=== PATIENT | female | born 1985 | race Caucasian/White ===

== ENCOUNTER 2021-11-06 09:55 | Outpatient (REF) | payer OTHER, MEDICAID, SELFPAY ==
[2021-11-06 10:28] LABS: MANUAL DIFF FLAG NO
[2021-11-06 11:56] LABS: Basophils Percent Auto 0.4 % (0-2); Eosinophils Absolute Auto 0.1 X10*3/uL (0.0-0.4); Eosinophils Percent Auto 1.1 % (0-4); Hematocrit 41.9 % (37.0-47.0); Hemoglobin 13.9 g/dl (12.0-16.0); Imm Gran Abs Auto 0.02 X10*3/uL (0.00-0.03); Imm Gran Pct Auto 0.3 % (0.0-0.4); Lymphocytes Absolute Auto 2.6 X10*3/uL (1.2-4.9); Mean Corpuscular HGB Conc 33.2 g/dl (31.0-35.0); Mean Corpuscular Hemoglobin 31.2 pg (27.0-33.0); Mean Corpuscular Volume 94.2 fL (80.0-98.0); Mean Platelet Volume 9.5 fL (9.4-12.3); Monocytes Absolute Auto 0.5 X10*3/uL (0.1-1.2); Neutrophils Absolute Auto 4.2 x10*3/uL (2.0-8.3); Neutrophils Percent Auto 56.2 % (45-73); Platelet Count 316 X10*3/uL (160-400); Red Blood Count 4.45 X10*6/uL (4.20-5.50); Red Cell Distribution Width 12.6 % (11.0-16.0); White Blood Count 7.4 X10*3/uL (4.8-10.8)
[2021-11-06 14:00] LABS: Alanine Aminotransferase 12 U/L (0-31); Albumin Level 4.4 g/dL (3.5-5.0); Alkaline Phosphatase 58 U/L (39-117); Anion Gap 14 (12-20); Aspartate Amino Transferase 16 U/L (5-31); Bilirubin Total 0.3 mg/dL (0.0-1.0); Blood Urea Nitrogen 12 mg/dL (9-16); Calcium 9.4 mg/dL (8.4-10.2); Carbon Dioxide 23 mmol/L (22-29); Chloride 104 mmol/L (96-108); Estimated Glomerular Filt Rate > 60; Glucose Random 81 mg/dL (60-115); Potassium 4.2 mmol/L (3.3-5.1); Sodium 137 mmol/L (135-145); Total Protein 7.5 g/dL (6.5-8.0)
[2021-11-08 13:56] LABS: Anti Nuclear Antibody Screen NEGATIVE (NEGATIVE)
[2021-11-09 06:56] LABS: Anti DNA DS Antibody <1 IU/mL; Antibody to SS-A Antigen 1.1 POS AI (<1.0 NEG); Antibody to SS-B Antigen <1.0 NEG AI (<1.0 NEG); JO 1 Antibody <1.0 NEG AI (<1.0 NEG); SM/Ribonucleoprotein Ab <1.0 NEG AI (<1.0 NEG); Scleroderma 70 Antibody <1.0 NEG AI (<1.0 NEG); Smith Protein <1.0 NEG AI (<1.0 NEG)
== END 2021-11-06 09:56 | disposition home or self-care (01) ==
LOC: HO.LAB 09:55
PROVIDERS: PCP Internal Medicine; Visit Provider Physician Assistant
DX: L93.0 Discoid lupus erythematosus (principal)
CPT/HCPCS: 36415; 80053; 85025; 86038; 86039; 86225; 86235

== ENCOUNTER 2021-11-14 08:12 | Outpatient (REF) | payer OTHER, SELFPAY ==
--- NOTE | 2021-11-14 08:25 | EMG_ITS ---
HISTORY OF PRESENT ILLNESS: This is a 36-year-old woman with more than 5 year history of pain, numbness, and tingling in the hands, particularly on the right and mildly on the left with some nocturnal symptoms in the right as well for more than 5 years. She has a history of lupus and is on hydrochloroquine. She also takes lamotrigine for more mood stabilization. She is on Adderall. PHYSICAL EXAMINATION: On examination, she is alert and oriented with normal intellectual functions. Cranial nerves II through XII are normal. Muscle tone and strength are normal in all 4 extremities. No Tinel or Phalen sign. IMPRESSION: Carpal tunnel syndrome. Nerve conduction EMG study: Mild to moderate carpal tunnel syndrome on the right. Normal study on the left. Normal EMG of the right C5-T1 innervated muscles. MD MARY LOU Cano/TROY / [id number]
== END 2021-11-14 08:13 | disposition home or self-care (01) ==
LOC: HO.NEURO 08:12
PROVIDERS: PCP Internal Medicine; Visit Provider Physician Assistant
DX: G56.03 Carpal tunnel syndrome, bilateral upper limbs (principal)
CPT/HCPCS: 95885; 95913

== ENCOUNTER 2021-12-13 15:49 | Emergency (ER) | payer OTHER, MEDICAID, SELFPAY ==
[2021-12-13 15:55] VITALS: BP 148/90; PULSE 93; RESP 18; TEMP 36.3; O2SAT 99; BMI 26.6
--- NOTE | 2021-12-13 17:14 | ED.MEDCLEAR ---
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 Patient admits injury ryan blood. Washed hands immediately. Admits her vaccinations are up-to-date. Unable to track which patient this instrument was used on. Denies injury to other area MD complaint: medical clearance requested Onset (ago): hour(s) Related Information Allergies Allergy/AdvReac Type Severity Reaction Status Date / Time No Known Allergies Allergy Verified 12/13/21 15:55 Review of Systems Review of Systems: Constitutional: No Fever, No Chills ENT/Mouth: No Ear Pain, No Nasal Congestion, No sore throat, No Rhinorrhea, No Swallowing Difficulty Cardiovascular: No Chest Pain, No SOB Respiratory: No Cough, No Sputum Gastrointestinal: No Nausea, No Vomiting, No Diarrhea, No Constipation, No Abdominal pain Genitourinary: No Dysuria, No Urinary Frequency, No Flank Pain Musculoskeletal: No joint pain, No Myalgias, No Joint Swelling Skin: + Skin Lesions, No rash Neuro: No Weakness, No Numbness, No Paresthesias Yes all other systems are reviewed and are negative Constitutional: Constitutional: Reports as per [facility] Past Medical History Attestation statement: The following information was validated with the patient. Social History Social History Advance Directives: No Advance Directives Information Provided: No Physical Exam Vital Signs: Vital Signs: Last Vital Signs Temp 97.4 F 12/13/21 15:55 Pulse 93 12/13/21 15:55 Resp 18 12/13/21 15:55 BP 148/90 H 12/13/21 15:55 Pulse Ox 99 12/13/21 15:55 O2 Del Method 12/13/21 15:55 BMI result Body Mass Index 26.6 Const: General: cooperative, healthy appearing and no acute distress Orientation/consciousness: patient oriented x3 Limitations: no limitations HEENT: Head: Yes normal to inspection and Yes atraumatic Ears: hearing grossly normal bilaterally General nose exam: Normal external nose present Face and sinus: Yes normal facial exam Eyes: General: appearance normal, both eyes and all related structures EOM: EOMs intact bilaterally Neck: Neck: Yes normal visual inspection and Yes no meningeal signs Resp: Effort & Inspection: normal respiratory effort and no respiratory distress Cardio: Rate: regular rate Peripheral pulses: radial pulses present GI: Inspection: Yes normal to inspection Palpation (GI): Soft to palpation, nontender, no guarding and not rigid : General: Yes no CVA tenderness Back/Spine/Pelvis: Back: no CVA tenderness Skin: Other: + small needlestick puncture wound noted to left thumb. No active bleeding. No surrounding erythema Rashes: no rashes Neuro: General: patient oriented x3, tone normal and no meningeal signs Gait exam (Neuro): Normal gait present Extrem: General: Yes normal to inspection Course Course Course Narrative: - labs unremarkable. A lengthy discussion with patient about risks/ benefit of taking PEP kit. Patient is agreeable/like to start kit today, and follow-up with [facility] tomorrow MDM - Medical Clearance MDM Narrative Medical decision making narrative: 36-year-old female with no significant past medical history presenting to the ED complaining of fingerstick with dirty skin hook while cleaning instruments. on exam vital signs stable, NAD, nontoxic appearing, physical exam as above. Patient is up-to-date on her vaccinations. Will obtain baseline labs /post exposure blood work, and give PEP Medical Records Attestation: I reviewed the patient's medical records. Lab Data Attestation: I reviewed the patient's lab results. Result diagrams: 12/13/21 17:35 12/13/21 17:35 Labs: Lab Results 12/13/21 12/13/21 Range/Units 17:35 17:35 WBC 8.3 (4.8-10.8) X10*3/uL RBC 4.35 (4.20-5.50) X10*6/uL Hgb 13.6 (12.0-16.0) g/dl Hct 40.9 (37.0-47.0) % MCV 94.0 (80.0-98.0) fL MCH 31.3 (27.0-33.0) pg MCHC 33.3 (31.0-35.0) g/dl RDW 12.5 (11.0-16.0) % Plt Count Not Reportable MPV Not Reportable Immature Gran % (Auto) 0.4 (0.0-0.4) % Neut % (Auto) 48.4 (45-73) % Lymph % (Auto) 43.1 H (20-40) % Gove % (Auto) 6.6 (2-11) % Eos % (Auto) 1.0 (0-4) % Baso % (Auto) 0.5 (0-2) % Lymph # (Auto) 3.6 (1.2-4.9) X10*3/uL Gove # (Auto) 0.6 (0.1-1.2) X10*3/uL Eos # (Auto) 0.1 (0.0-0.4) X10*3/uL Baso # (Auto) 0.0 (0.0-0.2) X10*3/uL Abs Immat Gran (auto) 0.03 (0.00-0.03) X10*3/uL Absolute Neuts (auto) 4.0 (2.0-8.3) x10*3/uL Absolute Nucleated RBC 0.000 (0.0-0.012) X10*3/uL Nucleated RBC % (auto) 0.0 (0.0-0.2) /100WBC Smear Tech's Comments VERIFIED Sodium 137 (135-145) mmol/L Potassium 4.8 (3.3-5.1) mmol/L Chloride 104 (96-108) mmol/L Carbon Dioxide 22 (22-29) mmol/L Anion Gap 16 (12-20) BUN 14 (9-16) mg/dL Creatinine 0.78 (0.5-1.4) mg/dL Estim Creat Clear Calc 108.7 Estimated GFR > 60 Random Glucose 85 (60-115) mg/dL Calcium 9.1 (8.4-10.2) mg/dL Total Bilirubin 0.2 (0.0-1.0) mg/dL Direct Bilirubin < 0.2 (0.0-0.5) mg/dL AST 21 (5-31) U/L ALT 21 (0-31) U/L Alkaline Phosphatase 61 (39-117) U/L Total Protein 7.7 (6.5-8.0) g/dL Albumin 4.3 (3.5-5.0) g/dL Discharge Plan Discharge Clinical Impression: Exposure to body fluid due to accidental needlestick injury Patient Disposition: Home, Self-Care Instructions: Needle Stick Injuries (ED) Additional Instructions: your blood work is reassuring. We tested you for hepatitis/HIV serologies which will take a few days to come back, we will call you with positive results only. Start taking Pap PEP as discussed, you should follow-up with [facility] tomorrow. Referrals: [facility] [Outside] Catrachita Herrera MD [Physician] - 5 days
[2021-12-13 17:48] LABS: Basophils Percent Auto 0.5 % (0-2); Eosinophils Absolute Auto 0.1 X10*3/uL (0.0-0.4); Lymphocytes Absolute Auto 3.6 X10*3/uL (1.2-4.9); Mean Corpuscular HGB Conc 33.3 g/dl (31.0-35.0); Monocytes Percent Auto 6.6 % (2-11); PLT CLUMP 1; Red Blood Count 4.35 X10*6/uL (4.20-5.50); SCAN SMEAR FLAG 1
[2021-12-13 17:50] LABS: Hematocrit 40.9 % (37.0-47.0); Hemoglobin 13.6 g/dl (12.0-16.0); Imm Gran Abs Auto 0.03 X10*3/uL (0.00-0.03); Imm Gran Pct Auto 0.4 % (0.0-0.4); Lymphocytes Percent Auto 43.1 % (20-40); MANUAL DIFF FLAG SCAN; Mean Corpuscular Hemoglobin 31.3 pg (27.0-33.0); Monocytes Absolute Auto 0.6 X10*3/uL (0.1-1.2); Neutrophils Percent Auto 48.4 % (45-73); Red Cell Distribution Width 12.5 % (11.0-16.0)
[2021-12-13 18:27] LABS: White Blood Count 8.3 X10*3/uL (4.8-10.8)
[2021-12-13 18:28] LABS: SLIDE REVIEW VERIFIED
[2021-12-13 18:39] LABS: Alanine Aminotransferase 21 U/L (0-31); Albumin Level 4.3 g/dL (3.5-5.0); Alkaline Phosphatase 61 U/L (39-117); Anion Gap 16 (12-20); Aspartate Amino Transferase 21 U/L (5-31); Bilirubin Direct < 0.2 mg/dL (0.0-0.5); Bilirubin Total 0.2 mg/dL (0.0-1.0); Blood Urea Nitrogen 14 mg/dL (9-16); Calcium 9.1 mg/dL (8.4-10.2); Carbon Dioxide 22 mmol/L (22-29); Chloride 104 mmol/L (96-108); Creatinine Clr Calc Pharmacy 108.7; Estimated Glomerular Filt Rate > 60; Glucose Random 85 mg/dL (60-115); Potassium 4.8 mmol/L (3.3-5.1); Sodium 137 mmol/L (135-145); Total Protein 7.7 g/dL (6.5-8.0)
[2021-12-13] MEDS: Post Exposure Medication Kit 1 KIT PO (19:49)
[2021-12-14 04:56] LABS: HBS Num1 123.94 mIU/mL (0-7.99); HBc Num1 0.08 S/CO (0.00-0.79); HBsAGNum1 0.18 S/CO (0.00-0.99); HIV AB/AG Nonreactive (Nonreactive); HIV Num 1 0.05 S/CO (0.00-0.99); Hepatitis B Core Antibody Nonreactive (Nonreactive); Hepatitis B Surface Antigen Negative (Negative); ~HepC Num1 0.07 S/CO (0.00-0.79); ~Hepatitis B Surface Antibody REACTIVE (Nonreactive); ~Hepatitis C Antibody Nonreactive (Nonreactive)
== END 2021-12-13 19:49 | disposition home or self-care (01) ==
PROVIDERS: Physician Assistant; Emergency Provider Student in an Organized Health Care Education/Training Program; PCP Internal Medicine
DX: Z77.21 Contact with and (suspected) exposure to potentially hazardous body fluids (principal); Z79.899 Other long term (current) drug therapy; Z20.822 Contact with and (suspected) exposure to COVID-19
CPT/HCPCS: 36415; 80048; 80076; 85025; 86704; 86706; 86803; 87340; 87389; 99282; 99283

== ENCOUNTER → 2021-12-14 11:24 | Outpatient (BNVA) | payer OTHER, SELFPAY | PROVIDERS: PCP Internal Medicine; Visit Provider Internal Medicine | DX: Z13.89 Encounter for screening for other disorder (principal) | CPT/HCPCS: 99203 ==

== ENCOUNTER → 2022-02-06 13:31 | Outpatient (BNVA) | payer OTHER, SELFPAY | PROVIDERS: PCP Internal Medicine | DX: Z77.21 Contact with and (suspected) exposure to potentially hazardous body fluids (principal) | CPT/HCPCS: 36415; 84450; 84460; 87389; 99211 ==

== ENCOUNTER 2022-03-22 08:00 | Outpatient (REF) | payer OTHER, MEDICAID, SELFPAY ==
--- NOTE | ~2022-03-22 | MM_ITS ---
EXAMINATION: MM SCREENING DIGITAL BREAST TOMOSYNTHESIS, BILATERAL CLINICAL INFORMATION: Age 36. Family history premenopausal breast cancer, mother. Family history breast cancer also in grandmother and aunt. No prior breast imaging. COMPARISON: None (current study represents initial baseline exam). TECHNIQUE: Digital breast tomosynthesis is performed in both the craniocaudal and mediolateral oblique views along with computer-aided detection (CAD). Synthesized 2D images are generated from the tomosynthesis. FINDINGS: There are scattered areas of fibroglandular density (ACR BI-RADS breast composition Category b). Breast tissue composition borders on predominantly fatty. There is no mass or architectural abnormality. No abnormal calcifications. Stromal markings are normal. The axilla and skin contours are unremarkable. MM/MM tomosynthesis screening BI IMPRESSION: No mammographic evidence of malignancy. ASSESSMENT: BI-RADS 1: Negative RECOMMENDATION: Routine annual mammography screening. This patient's information was entered into a reminder system with a target due date for their next mammogram.
== END 2022-03-22 08:01 | disposition home or self-care (01) ==
LOC: HO.MAMMO 08:00
PROVIDERS: Visit Provider Nurse Practitioner Family
DX: Z12.31 Encounter for screening mammogram for malignant neoplasm of breast (principal)
CPT/HCPCS: 77063; 77067

== ENCOUNTER 2022-05-08 09:46 | Outpatient (REF) | payer OTHER, MEDICAID, SELFPAY ==
[2022-05-08 10:05] LABS: MANUAL DIFF FLAG NO
[2022-05-08 10:48] LABS: Basophils Percent Auto 0.5 % (0-2); Eosinophils Absolute Auto 0.1 X10*3/uL (0.0-0.4); Hematocrit 43.9 % (37.0-47.0); Hemoglobin 14.6 g/dl (12.0-16.0); Imm Gran Abs Auto 0.02 X10*3/uL (0.00-0.03); Imm Gran Pct Auto 0.3 % (0.0-0.4); Lymphocytes Absolute Auto 2.4 X10*3/uL (1.2-4.9); Lymphocytes Percent Auto 37.9 % (20-40); Mean Corpuscular HGB Conc 33.3 g/dl (31.0-35.0); Mean Corpuscular Hemoglobin 30.6 pg (27.0-33.0); Mean Platelet Volume 9.4 fL (9.4-12.3); Monocytes Absolute Auto 0.4 X10*3/uL (0.1-1.2); Monocytes Percent Auto 7.1 % (2-11); Neutrophils Absolute Auto 3.3 x10*3/uL (2.0-8.3); Neutrophils Percent Auto 53.2 % (45-73); Platelet Count 312 X10*3/uL (160-400); Red Blood Count 4.77 X10*6/uL (4.20-5.50); Red Cell Distribution Width 12.1 % (11.0-16.0); White Blood Count 6.2 X10*3/uL (4.8-10.8)
[2022-05-08 11:23] LABS: Alanine Aminotransferase 13 U/L (0-31); Albumin Level 4.4 g/dL (3.5-5.0); Alkaline Phosphatase 62 U/L (39-117); Anion Gap 12 (12-20); Aspartate Amino Transferase 15 U/L (5-31); Bilirubin Total 0.4 mg/dL (0.0-1.0); Blood Urea Nitrogen 14 mg/dL (9-16); Calcium 9.7 mg/dL (8.4-10.2); Carbon Dioxide 26 mmol/L (22-29); Chloride 104 mmol/L (96-108); Estimated Glomerular Filt Rate > 60; Glucose Random 88 mg/dL (60-115); Potassium 5.1 mmol/L (3.3-5.1); Sodium 137 mmol/L (135-145); Total Protein 7.4 g/dL (6.5-8.0)
== END 2022-05-08 09:47 | disposition home or self-care (01) ==
LOC: HO.LAB 09:46
PROVIDERS: PCP Internal Medicine; Visit Provider Physician Assistant
DX: L93.0 Discoid lupus erythematosus (principal); L70.0 Acne vulgaris
CPT/HCPCS: 36415; 80053; 85025

== ENCOUNTER 2022-10-07 11:57 | Outpatient (REF) | payer OTHER, MEDICAID, SELFPAY ==
--- NOTE | ~2022-10-07 | XR_ITS ---
EXAMINATION: XR RIBS, LEFT CLINICAL INFORMATION: Pain, injury. COMPARISON: None available. TECHNIQUE: 4 views of the left ribs were obtained. FINDINGS: The cardiomediastinal silhouette is within normal limits. The lungs are well expanded. There is no focal consolidation, edema, or effusion. No pneumothorax. Marker positioned along the inferior left rib cage. No acute displaced rib fracture is identified. XR/XR ribs LT min 3V w CXR1V IMPRESSION: No acute pulmonary process. No acute displaced rib fracture is identified.
--- NOTE | ~2022-10-07 | XR_ITS ---
EXAMINATION: XR THORACIC SPINE CLINICAL INFORMATION: Injury COMPARISON: None available. TECHNIQUE: 3 views of the thoracic spine were obtained. FINDINGS: On the lateral view, the upper thoracic vertebral spine, cervicothoracic junction is obscured by overlapping structures.. In the visualized thoracic spine, there is normal sagittal alignment. Mild levoconvex curvature. Vertebral body heights are maintained. No acute compression fractures seen. Disc spaces are maintained. On the lateral view, the partially visualized cervical spine demonstrates straightening, without evidence of acute fracture. XR/XR thoracic spine 3V IMPRESSION: Upper thoracic spine/cervicothoracic junction is obscured on the lateral projection. In the visualized spine, no radiographic evidence of acute fracture or malalignment.
== END 2022-10-07 11:58 | disposition home or self-care (01) ==
LOC: HO.XRAY 11:57
PROVIDERS: PCP Nurse Practitioner Family; Visit Provider Nurse Practitioner Family
DX: M54.6 Pain in thoracic spine (principal); X50.0XXA Overexertion from strenuous movement or load, initial encounter
CPT/HCPCS: 71101; 72072

== ENCOUNTER 2022-10-25 09:44 | Outpatient (REF) | payer OTHER, MEDICAID, SELFPAY ==
[2022-10-25 10:30] LABS: Basophils Percent Auto 0.4 % (0-2); Eosinophils Percent Auto 0.8 % (0-4); Hemoglobin 13.3 g/dl (12.0-16.0); Imm Gran Abs Auto 0.01 X10*3/uL (0.00-0.03); Imm Gran Pct Auto 0.2 % (0.0-0.4); Lymphocytes Absolute Auto 2.3 X10*3/uL (1.2-4.9); Lymphocytes Percent Auto 45.2 % (20-40); MANUAL DIFF FLAG NO; Mean Corpuscular HGB Conc 33.3 g/dl (31.0-35.0); Mean Corpuscular Hemoglobin 30.4 pg (27.0-33.0); Mean Corpuscular Volume 91.5 fL (80.0-98.0); Mean Platelet Volume 9.5 fL (9.4-12.3); Monocytes Absolute Auto 0.4 X10*3/uL (0.1-1.2); Monocytes Percent Auto 8.4 % (2-11); Neutrophils Absolute Auto 2.3 x10*3/uL (2.0-8.3); Platelet Count 251 X10*3/uL (160-400); Red Blood Count 4.37 X10*6/uL (4.20-5.50); Red Cell Distribution Width 12.4 % (11.0-16.0)
[2022-10-25 10:54] LABS: Alanine Aminotransferase 18 U/L (0-31); Albumin Level 4.3 g/dL (3.5-5.0); Alkaline Phosphatase 83 U/L (39-117); Aspartate Amino Transferase 16 U/L (5-31); Bilirubin Direct 0.1 mg/dL (0.0-0.5); Bilirubin Total 0.4 mg/dL (0.0-1.0); Cholesterol 177 mg/dL; HDL Cholesterol 59 mg/dL; LDL Cholesterol Calculated 105 mg/dl; Triglycerides 69 mg/dL
== END 2022-10-25 09:45 | disposition home or self-care (01) ==
LOC: HO.LAB 09:44
PROVIDERS: PCP Nurse Practitioner Family; Visit Provider Physician Assistant
DX: L70.0 Acne vulgaris (principal); Z79.899 Other long term (current) drug therapy
CPT/HCPCS: 36415; 80061; 80076; 85025

== ENCOUNTER 2022-12-12 16:08 | Outpatient (REF) | payer OTHER, MEDICAID, SELFPAY ==
[2022-12-12 16:19] LABS: MANUAL DIFF FLAG NO
[2022-12-12 18:09] LABS: Basophils Percent Auto 0.4 % (0-2); Eosinophils Absolute Auto 0.1 X10*3/uL (0.0-0.4); Eosinophils Percent Auto 0.7 % (0-4); Hematocrit 38.8 % (37.0-47.0); Hemoglobin 12.8 g/dl (12.0-16.0); Imm Gran Abs Auto 0.03 X10*3/uL (0.00-0.03); Imm Gran Pct Auto 0.4 % (0.0-0.4); Lymphocytes Percent Auto 40.5 % (20-40); Mean Corpuscular Hemoglobin 30.1 pg (27.0-33.0); Mean Corpuscular Volume 91.3 fL (80.0-98.0); Mean Platelet Volume 9.8 fL (9.4-12.3); Monocytes Absolute Auto 0.7 X10*3/uL (0.1-1.2); Monocytes Percent Auto 9.2 % (2-11); Neutrophils Absolute Auto 3.6 x10*3/uL (2.0-8.3); Neutrophils Percent Auto 48.8 % (45-73); Platelet Count 270 X10*3/uL (160-400); Red Blood Count 4.25 X10*6/uL (4.20-5.50); Red Cell Distribution Width 12.7 % (11.0-16.0); White Blood Count 7.4 X10*3/uL (4.8-10.8)
[2022-12-12 19:05] LABS: Alanine Aminotransferase 25 U/L (0-31); Albumin Level 4.2 g/dL (3.5-5.0); Alkaline Phosphatase 93 U/L (39-117); Aspartate Amino Transferase 21 U/L (5-31); Bilirubin Direct < 0.2 mg/dL (0.0-0.5); Bilirubin Total 0.2 mg/dL (0.0-1.0); Cholesterol 185 mg/dL; HDL Cholesterol 51 mg/dL; LDL Cholesterol Calculated 111 mg/dl; Total Protein 7.4 g/dL (6.5-8.0); Triglycerides 117 mg/dL
== END 2022-12-12 16:09 | disposition home or self-care (01) ==
LOC: HO.LAB 16:08
PROVIDERS: PCP Nurse Practitioner Family; Visit Provider Physician Assistant
DX: L70.0 Acne vulgaris (principal); Z79.899 Other long term (current) drug therapy
CPT/HCPCS: 36415; 80061; 80076; 85025

== ENCOUNTER 2022-12-17 09:25 | Outpatient (REF) | payer OTHER, MEDICAID, SELFPAY ==
[2022-12-17 11:14] LABS: Alanine Aminotransferase 21 U/L (0-31); Albumin Level 4.3 g/dL (3.5-5.0); Alkaline Phosphatase 93 U/L (39-117); Anion Gap 17 (12-20); Aspartate Amino Transferase 19 U/L (5-31); Bilirubin Total 0.2 mg/dL (0.0-1.0); Blood Urea Nitrogen 16 mg/dL (9-16); Calcium 9.9 mg/dL (8.4-10.2); Carbon Dioxide 22 mmol/L (22-29); Chloride 106 mmol/L (96-108); Estimated Glomerular Filt Rate > 60; Glucose Random 92 mg/dL (60-115); Potassium 4.8 mmol/L (3.3-5.1); Sodium 140 mmol/L (135-145); Total Protein 7.7 g/dL (6.5-8.0)
[2022-12-17 11:19] LABS: Thyroid Stimulating Hormone 0.57 uIU/mL (0.32-4.0)
[2022-12-17 11:20] LABS: Cortisol Random 9.4 ug/dL
[2022-12-17 11:29] LABS: Vitamin B12 559 pg/mL (200-900)
[2022-12-17 11:42] LABS: Erythrocyte Sedimentation Rate 16 MM/HR (0-20)
[2022-12-18 05:59] LABS: Follicle Stimulating Hormone 3.6 mIU/mL; Lutenizing Hormone 2.6 mIU/mL
[2022-12-21 23:04] LABS: Estradiol Ultra Sensitive 54 pg/mL
== END 2022-12-17 09:26 | disposition home or self-care (01) ==
LOC: HO.LAB 09:25
PROVIDERS: Visit Provider Nurse Practitioner Family
DX: Z00.00 Encounter for general adult medical examination without abnormal findings (principal); R53.83 Other fatigue; L93.0 Discoid lupus erythematosus; Z13.21 Encounter for screening for nutritional disorder
CPT/HCPCS: 36415; 80053; 82306; 82533; 82607; 82670; 83001; 83002; 84443; 85652

== ENCOUNTER 2023-01-14 09:43 | Outpatient (REF) | payer OTHER, MEDICAID, SELFPAY ==
[2023-01-14 09:56] LABS: MANUAL DIFF FLAG NO
[2023-01-14 10:17] LABS: Basophils Percent Auto 0.7 % (0-2); Eosinophils Absolute Auto 0.1 X10*3/uL (0.0-0.4); Eosinophils Percent Auto 0.9 % (0-4); Hematocrit 38.9 % (37.0-47.0); Imm Gran Abs Auto 0.01 X10*3/uL (0.00-0.03); Imm Gran Pct Auto 0.2 % (0.0-0.4); Lymphocytes Absolute Auto 2.7 X10*3/uL (1.2-4.9); Mean Corpuscular HGB Conc 33.4 g/dl (31.0-35.0); Mean Corpuscular Hemoglobin 29.8 pg (27.0-33.0); Mean Corpuscular Volume 89.2 fL (80.0-98.0); Mean Platelet Volume 9.7 fL (9.4-12.3); Monocytes Absolute Auto 0.5 X10*3/uL (0.1-1.2); Monocytes Percent Auto 9.5 % (2-11); Neutrophils Absolute Auto 2.2 x10*3/uL (2.0-8.3); Neutrophils Percent Auto 39.7 % (45-73); Platelet Count 265 X10*3/uL (160-400); Red Blood Count 4.36 X10*6/uL (4.20-5.50); Red Cell Distribution Width 12.6 % (11.0-16.0); White Blood Count 5.5 X10*3/uL (4.8-10.8)
[2023-01-14 10:53] LABS: Alanine Aminotransferase 13 U/L (0-31); Albumin Level 4.2 g/dL (3.5-5.0); Alkaline Phosphatase 93 U/L (39-117); Aspartate Amino Transferase 16 U/L (5-31); Bilirubin Direct 0.1 mg/dL (0.0-0.5); Bilirubin Total 0.3 mg/dL (0.0-1.0); Cholesterol 157 mg/dL (<200); HDL Cholesterol 46 mg/dL (>40); LDL Cholesterol Calculated 86 mg/dL (<100); Total Protein 7.3 g/dL (6.5-8.0); Triglycerides 127 mg/dL (<150)
== END 2023-01-14 09:44 | disposition home or self-care (01) ==
LOC: HO.LAB 09:43
PROVIDERS: PCP Nurse Practitioner Family; Visit Provider Physician Assistant
DX: L70.0 Acne vulgaris (principal); K13.0 Diseases of lips; M79.10 Myalgia, unspecified site; Z79.899 Other long term (current) drug therapy
CPT/HCPCS: 36415; 80061; 80076; 85025

== ENCOUNTER 2023-02-04 14:14 | Outpatient (REF) | payer OTHER, SELFPAY ==
[2023-02-05 08:43] LABS: Mumps Virus IgG Antibody >300.00 AU/mL
== END 2023-02-04 14:15 | disposition home or self-care (01) ==
LOC: HO.LAB 14:14
PROVIDERS: PCP Nurse Practitioner Family; Visit Provider Nurse Practitioner Family
DX: Z01.84 Encounter for antibody response examination (principal)
CPT/HCPCS: 36415; 86735; 86762; 86765; 86787

== ENCOUNTER 2023-02-05 08:13 | Outpatient (AMB) | payer OTHER, MEDICAID, SELFPAY ==
[2023-02-05 08:18] VITALS: BMI 28.2
--- NOTE | 2023-02-05 08:18 | MHC.OFFVIS ---
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 Intake Note: Astrid 37 yr old female who is right hand dominant, presents today for her bilateral hand numbness and tingling for 2-3 years. She is having numbness worse in her right hand and associated with pain in her ring finger. Reports symptoms have worsen since, currently she has CTS that comes and goes if she shakes off her hands. States she has tried wearing a brace at night but it doesn't help as much any more. EMG done. Patient would like to discuss surgical intervention. 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 She presents with complaints of bilateral hand numbness and tingling, right worse than left.. Symptoms are intermittent but daily and worse at night on the right. Symptoms are intermittent and occasional, perhaps a couple times a week on the left. 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 She has tried bracing at night without relief. She also complains of occasional pain in her right hand which extends over the dorsal aspect of the 4th MCP joint from the middle of the 4th metacarpal to the middle of the proximal phalanx.. She says she did break this finger when she was ~14 but that is the only injury she can recall. Her pain occurs several times a week and has been present for a few years. No locking or catching. She also complains of occasional pain in her left hand, over the dorsum of the 5th metacarpal shaft. She says her pain is sharp and occurs randomly, even while at rest. Her pain is intermittent & occasional, perhaps a couple times a week, and started ~1 year ago. She does not recall any known injury. She denies any known recent injury to either of her hands.. 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 Review of Systems Const All systems reviewed & are unremarkable except as noted in HPI and below Physical Exam Vital Signs: BMI result Body Mass Index 28.2 Const General: cooperative, healthy appearing and no acute distress Orientation/consciousness: patient oriented x3 HEENT Head: Yes normocephalic and Yes atraumatic Eyes EOM: EOMs intact bilaterally Resp Effort & Inspection: normal respiratory effort and able to speak in complete sentences Cardio Jugular venous distension: no JVD Skin General skin exam: turgor normal Rashes: no rashes Neuro General: patient oriented x3 Extrem Other: Evaluation of Bilateral Upper Extremity: The patient is alert, oriented, and in no acute distress Neuro: Median, Ulnar, Radial nerves motor and sensory intact and sensation is normal to the tips of all digits No thenar or intrinsic wasting. Good finger cross and good APB muscle belly firing Vascular: Cap refill brisk ROM: She can make a fist and extend all her digits No locking or catching and no A1 gildardo tenderness. Skin: No lacerations or abrasions. General: No Ecchymosis. No Erythema or evidence of infection. She has some occasional pain over the right 4th MCP joint, but no tenderness to palpation today. Full active range of motion at the joint without discomfort. No subluxation of the extensor mechanism No A1 gildardo tenderness No pain with axial load No swelling Not particularly tender today She also gets occasional pain over the left 5th metacarpal shaft. She says she has minimal tenderness when I am palpating the middle of the shaft. There is no swelling or ecchymosis Full active range of motion of the joints above and below without pain. Nerve Conduction Study: IMPRESSION: Mild to moderate carpal tunnel syndrome on the right. Normal study on the left. Normal EMG of the right C5-T1 innervated muscles. José Miguel Park MD 11/14/2021 Psych Appearance: grossly normal Affect: normal affect Attitude: cooperative Assessment & Plan Assessment & Plan (1) Carpal tunnel syndrome of right wrist: Code(s): G56.01 - Carpal tunnel syndrome, right upper limb (2) Numbness and tingling in left hand: Code(s): R20.0 - Anesthesia of skin; R20.2 - Paresthesia of skin (3) Pain in finger of right hand: Code(s): M79.644 - Pain in right finger(s) (4) Pain in finger of left hand: Code(s): M79.645 - Pain in left finger(s) (5) OCD (obsessive compulsive disorder): Code(s): F42.9 - Obsessive-compulsive disorder, unspecified Plan Assessment & Plan: 1. Right Carpal tunnel syndrome, mild-moderate Symptoms intermittent, but daily, worse at night I educated her about this condition I discussed operative and non-operative treatment options The patient would like to proceed with surgery The risks and benefits of operative treatment were discussed with the patient and the patient wishes to proceed with surgery. These risks include, but are not limited to risk of damage to blood vessels, nerves, tendons, infection, recurrence, incomplete relief of preoperative symptoms, persistent pain, possible need for further surgery and the risks associated with regional blocks and anesthesia. The plan is to take the patient to the operating room sometime in the next few weeks for the following procedures: 1. Right carpal tunnel release, under local All of the preoperative paperwork including the consent was filled out today. All the patient's questions were answered. The patient understands that they will be contacted by our psychology teacher soon to schedule this procedure She denies Diabetes, blood thinners, asthma, heart, lung, kidney issues 2. Left hand numbness In the median nerve distribution Symptoms intermittent, but daily, worse at night Negative on NCS on 11/14/21 If her symptoms persist or worsen we can discuss a new NCS to assess her left hand. 3. Right hand pain Dorsal area distal 4th metacarpal to mid proximal phalanx Old injury when she was ~14 years old Symptoms intermittent & occasional Present for ~5 years No locking or catching Benign clinical exam This will be managed conservatively Consider radiographs is symptoms become more problematic 4. Left 5th metacarpal shaft pain No known injury, present for ~1 year Symptoms intermittent & occasional, perhaps 2x weekly Benign clinical exam This will be managed conservatively Consider radiographs is symptoms become more problematic. Scribed for Ivania Monsivais MD by Marco A Quinteros, infertility medical assistant, on 02/05/23 at 8:45 AM, EST. Coding Level of Care Code New Pt Level 4 (01023) Diagnoses Carpal tunnel syndrome of right wrist G56.01 Numbness and tingling in left hand R20.0; R20.2 Pain in finger of right hand M79.644 Pain in finger of left hand M79.645 OCD (obsessive compulsive disorder) F42.9
== END 2023-02-05 08:52 | disposition home or self-care (01) ==
PROVIDERS: PCP Nurse Practitioner Family; Visit Provider Orthopaedic Surgery
DX: G56.01 Carpal tunnel syndrome, right upper limb (principal); R20.0 Anesthesia of skin; R20.2 Paresthesia of skin; M79.644 Pain in right finger(s); M79.645 Pain in left finger(s)
CPT/HCPCS: 99204

== ENCOUNTER → 2023-02-05 08:13 | Outpatient (BNVA) | payer OTHER, MEDICAID, SELFPAY | PROVIDERS: PCP Nurse Practitioner Family; Visit Provider Orthopaedic Surgery ==

== ENCOUNTER 2023-02-07 07:58 | Outpatient (AMB) | payer OTHER, SELFPAY ==
--- NOTE | 2023-02-07 08:04 | MHC.OFFVIS ---
Intake Vital Signs 02/07/23 08:12 Height 5 ft 7 in Weight 180 lb BMI 28.2 BP 133/72 Blood Pressure Location Lt brachial Position Sitting Pulse 102 H Intake Visit Reasons: Dysphagia, reflux, and FH colon cancer Intake Note: Patient new consult dysphagia, and reflux. Also pre colonoscopy/EKD screening. Patient cc: acid reflex with burning sensation, abdominal bloating, constipation with some blood and patient think are internal hemorrhoids, and swallowing problems. Allergies flagyl Allergy (Severe, Uncoded 02/05/23 08:19) Vomiting HPI Dysphagia, reflux, and FH colon cancer HPI Details 37-year-old female here for initial evaluation of dysphagia. She is referred by Andressa Siegel NP of [facility] in [facility]. PMX Asthma Family history of clotting disorder ADHD/OCD/depression/anxiety Smoker - quit Long-term use of Plaquenil Fatty liver Axillary hyperhidrosis Constipation GERD Discoid lupus History of nephrolithiasis * SURGICAL HISTORY Skin biopsy-lupus Colonoscopy -2014 [facility] EGD/2011 History of laparoscopy LEEP procedure * ALLERGIES Flagyl Nicorette mint * LABS: Laboratory Tests 12/13/21 12/17/22 12/17/22 17:35 09:47 09:47 WBC Hgb Hct Plt Count Estimated GFR > 60 Total Bilirubin Direct Bilirubin AST ALT Alkaline Phosphata se TSH 0.57 Hep Bs Antigen Negative Hep Bs Antibody REACTIVE Hep B Core Total A b Nonreactive Hepatitis C Ab (EI A) Nonreactive HIV 1&2 Ab/P24 Ag 4thGn Nonreactive 01/14/23 01/14/23 01/14/23 09:54 09:54 09:54 WBC 5.5 Hgb 13.0 Hct 38.9 Plt Count 265 Estimated GFR Total Bilirubin 0.3 Direct Bilirubin 0.1 AST 16 ALT 13 Alkaline Phosphata se 93 TSH Hep Bs Antigen Hep Bs Antibody Hep B Core Total A b Hepatitis C Ab (EI A) HIV 1&2 Ab/P24 Ag 4thGn TODAY'S VISIT The problem started many years ago, she had an EGD at [facility] and she had a neg biopsy for SSBE. She has a lot of acid reflux with acid brash and throwing up in my mouth. She has dysphagia of solid foods and pills in the upper throat and a globus sensation.She used to take Prilosec but it didn't do much. She has been of any acid reducingmeds for 8 years. She is always constipated, at times only moving her bowels once a week and they are very hard. she has tried Miralax, Linzess, saw a measurement superintendent and they wanted her to start a probiotic but she has to do stool testing first. The prior meds did not do anything and did not produce results. BUT she was only had the 72mcg dose. She has had 2 colonoscopies r/t FHX on both sides for CRC, she was told the polyps were benign. Her last was at [facility] in 2019, and on 2014. Diet, very picky eats [place] yogurt, protein shake, granola bar, chicken/stead, potato and veggie (not a big veggie person) but will eat broccoli, green beans, corn. Not a lot of whole grains. She only drinks water and will drink 17oz bottles adn goes through 4-6 a day. Will She does not really know about fHX of similar problems, but her sister had CRC at age 47. She has used metamucil, and we discuss benefiber, ctira, pills, gummies etc. She would rather have egd/colon together, will get records and decide if we can. Will get mod barium swllow, start famotidine and Linzess 290, and ROV 3 weeks. 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 Review of Systems Const Denies fatigue, Denies fever(s), Denies night sweats, Denies poor appetite and Denies weight loss ENT Reports Normal hearing present, Denies dental pain, Reports dysphagia, Denies hearing loss, Denies mouth pain, Denies odynophagia, Denies throat swelling, Denies tongue swelling and Reports other (Dentition adequate) Card Reports no additional complaints Resp Reports no additional complaints GI Denies abdominal pain, Denies melena, Denies bloating, Denies hematochezia, Reports constipation, Denies GI cramping, Reports dysphagia, Denies excessive flatus, Denies early satiety, Reports heartburn, Denies diarrhea, Denies nausea, Denies odynophagia, Denies vomiting and Denies hematemesis Skin/Breast Denies pruritus, Denies lesions, Denies rash and Denies jaundice Neuro Reports Normal hearing present and Denies Abnormal speech present Endo Denies fatigue Aller/Immun Denies throat swelling and Denies tongue swelling Physical Exam Vital Signs: Last Vital Signs Pulse 102 H 02/07/23 08:12 BP 133/72 02/07/23 08:12 BMI result Body Mass Index 28.2 Const General: cooperative, no acute distress, well developed and well groomed Nutritional Appearance: average body habitus and well nourished Orientation/consciousness: oriented to person, oriented to place and oriented to time Limitations: No language barrier HEENT Head: Yes normocephalic and Yes atraumatic Eyes General: appearance normal, both eyes and all related structures Pupils: Equal, round and reactive pupils present Neck Neck: Yes normal visual inspection and Yes no lymphadenopathy Thyroid: Thyroid normal Resp Effort & Inspection: normal respiratory effort and able to speak in complete sentences Auscultation: clear to auscultation bilaterally Cardio Rate: regular rate Rhythm: regular rhythm Heart sounds: Normal, physiologic split S2 sound present Peripheral pulses: radial pulses present and posterior tibial pulses present GI Inspection: No distended, No Abdominal panniculus present and Yes striae Palpation (GI): Soft to palpation, nontender, no guarding, not rigid and No hepatosplenomegaly present Percussion: Yes normal to percussion Auscultation: normal bowel sounds Rectal Exam - Female: deferred Skin General skin exam: no rashes or lesions noted, turgor normal, skin not dry, no jaundice, No spider nevi and no striae Rashes: no rashes Nails: normal Neuro General: oriented to person, oriented to place and oriented to time Cranial nerves: Yes Equal, round and reactive pupils present and Yes Normal hearing present Speech: No Abnormal speech present Extrem General: Yes normal to inspection, No clubbing, No cyanosis and No edema Psych Appearance: grossly normal and well kempt Mental Status: mental status grossly normal Speech and movement: Normal speech and movement present Affect: normal affect Attitude: cooperative Thought process: Normal thought process present and not confabulating Thought content: Normal thought content present Insight: Fair insight present (Psych) Judgement: Fair judgement present (Psych) Results Reviewed Results Reviewed: Laboratory Tests 12/13/21 12/17/22 12/17/22 17:35 09:47 09:47 WBC Hgb Hct Plt Count Estimated GFR > 60 Total Bilirubin Direct Bilirubin AST ALT Alkaline Phosphatase TSH 0.57 Hep Bs Antigen Negative Hep Bs Antibody REACTIVE Hep B Core Total Ab Nonreactive Hepatitis C Ab (EIA) Nonreactive HIV 1&2 Ab/P24 Ag 4thGn Nonreactive 01/14/23 01/14/23 01/14/23 09:54 09:54 09:54 WBC 5.5 Hgb 13.0 Hct 38.9 Plt Count 265 Estimated GFR Total Bilirubin 0.3 Direct Bilirubin 0.1 AST 16 ALT 13 Alkaline Phosphatase 93 Assessment & Plan Assessment & Plan (1) GERD (gastroesophageal reflux disease): Code(s): K21.9 - Gastro-esophageal reflux disease without esophagitis Plan: The problem started many years ago, she had an EGD at [facility] and she had a neg biopsy for SSBE. She has a lot of acid reflux with acid brash and throwing up in my mouth. She has dysphagia of solid foods and pills in the upper throat and a globus sensation.She used to take Prilosec but it didn't do much. She has been of any acid reducingmeds for 8 years. She is always constipated, at times only moving her bowels once a week and they are very hard. she has tried Miralax, Linzess, saw a measurement superintendent and they wanted her to start a probiotic but she has to do stool testing first. The prior meds did not do anything and did not produce results. BUT she was only had the 72mcg dose. She has had 2 colonoscopies r/t FHX on both sides for CRC, she was told the polyps were benign. Her last was at [facility] in 2019, and on 2015. Diet, very picky eats [place] yogurt, protein shake, granola bar, chicken/stead, potato and veggie (not a big veggie person) but will eat broccoli, green beans, corn. Not a lot of whole grains. She only drinks water and will drink 17oz bottles adn goes through 4-6 a day. Will She does not really know about fHX of similar problems, but her sister had CRC at age 47. She has used metamucil, and we discuss benefiber, ctira, pills, gummies etc. She would rather have egd/colon together, will get records and decide if we can. Will get mod barium swllow, start famotidine and Linzess 290, and ROV 3 weeks. (2) Chronic idiopathic constipation: Code(s): K59.04 - Chronic idiopathic constipation (3) Oropharyngeal dysphagia: Code(s): R13.12 - Dysphagia, oropharyngeal phase Orders: Orders FL barium swallow modified 02/07/23 R13.12 - Dysphagia, oropharyngeal phase Medications: New linaclotide (Linzess) 290 mcg PO QAM 30 caps 3RF 30 days K59.04 - Chronic idiopathic constipation famotidine (Pepcid) 40 mg PO BEDTIME 30 tabs 3RF K21.9 - Gastro-esophageal reflux disease without esophagitis Coding Level of Care Code New Pt Level 3 (82641) Diagnoses GERD (gastroesophageal reflux disease) K21.9 Chronic idiopathic constipation K59.04 Oropharyngeal dysphagia R13.12
[2023-02-07 08:12] VITALS: BP 133/72; PULSE 102; BMI 28.2
== END 2023-02-07 09:01 | disposition home or self-care (01) ==
PROVIDERS: PCP Nurse Practitioner Family; Visit Provider Nurse Practitioner
DX: K21.9 Gastro-esophageal reflux disease without esophagitis (principal); K59.04 Chronic idiopathic constipation; R13.12 Dysphagia, oropharyngeal phase
CPT/HCPCS: 99203

== ENCOUNTER → 2023-02-07 08:00 | Outpatient (BNVA) | payer OTHER, MEDICAID, SELFPAY | PROVIDERS: PCP Nurse Practitioner Family; Visit Provider Nurse Practitioner ==

== ENCOUNTER 2023-02-27 08:31 | Outpatient (REF) | payer OTHER, SELFPAY ==
[2023-02-27 08:44] LABS: MANUAL DIFF FLAG NO
[2023-02-27 09:26] LABS: Basophils Percent Auto 0.7 % (0-2); Eosinophils Absolute Auto 0.1 X10*3/uL (0.0-0.4); Eosinophils Percent Auto 1.1 % (0-4); Hematocrit 38.9 % (37.0-47.0); Hemoglobin 12.7 g/dl (12.0-16.0); Imm Gran Abs Auto 0.01 X10*3/uL (0.00-0.03); Imm Gran Pct Auto 0.2 % (0.0-0.4); Lymphocytes Absolute Auto 2.5 X10*3/uL (1.2-4.9); Lymphocytes Percent Auto 44.6 % (20-40); Mean Corpuscular HGB Conc 32.6 g/dl (31.0-35.0); Mean Corpuscular Hemoglobin 30.7 pg (27.0-33.0); Mean Platelet Volume 9.7 fL (9.4-12.3); Monocytes Absolute Auto 0.6 X10*3/uL (0.1-1.2); Monocytes Percent Auto 10.3 % (2-11); Neutrophils Absolute Auto 2.4 x10*3/uL (2.0-8.3); Neutrophils Percent Auto 43.1 % (45-73); Platelet Count 305 X10*3/uL (160-400); Red Blood Count 4.14 X10*6/uL (4.20-5.50); Red Cell Distribution Width 13.1 % (11.0-16.0); White Blood Count 5.5 X10*3/uL (4.8-10.8)
[2023-02-27 09:54] LABS: Alanine Aminotransferase 14 U/L (0-31); Albumin Level 4.4 g/dL (3.5-5.0); Alkaline Phosphatase 97 U/L (39-117); Aspartate Amino Transferase 17 U/L (5-31); Bilirubin Direct 0.2 mg/dL (0.0-0.5); Bilirubin Total 0.2 mg/dL (0.0-1.0); Cholesterol 182 mg/dL (<200); HDL Cholesterol 56 mg/dL (>40); LDL Cholesterol Calculated 108 mg/dL (<100); Total Protein 7.5 g/dL (6.5-8.0); Triglycerides 92 mg/dL (<150)
== END 2023-02-27 08:32 | disposition home or self-care (01) ==
LOC: HO.LAB 08:31
PROVIDERS: PCP Nurse Practitioner Family; Visit Provider Physician Assistant
DX: L70.0 Acne vulgaris (principal); K13.0 Diseases of lips; L27.1 Localized skin eruption due to drugs and medicaments taken internally; M79.10 Myalgia, unspecified site; L85.3 Xerosis cutis; L30.8 Other specified dermatitis; L01.01 Non-bullous impetigo; Z79.899 Other long term (current) drug therapy
CPT/HCPCS: 36415; 80061; 80076; 85025

== ENCOUNTER 2023-03-07 10:24 | Outpatient (REF) | payer OTHER, SELFPAY ==
--- NOTE | ~2023-03-07 | FL_ITS ---
EXAMINATION: FL BARIUM SWALLOW CLINICAL INFORMATION: Dysphagia. Oropharyngeal phase. COMPARISON: None available. TECHNIQUE: Routine modified barium swallow was performed under lateral fluoroscopy with patient sitting and in presence of speech therapist. FINDINGS: Following oral administration of thin barium and honey consistency barium there is laryngeal penetration with immediate clear out. No laryngeal aspiration is seen. On oral administration of puree, or no laryngeal penetration aspiration seen. With solid food/cookie coated with barium there is slight delay in oral mastication but normal propagation of bolus through the pharynx into esophagus. No laryngeal penetration or aspiration seen. There is minimal residual fluid in the valleculae after every first swallow. Patient refused to swallow a second time. FLUOROSCOPY TIME: 1 minute and 1 second. DOSE AREA PRODUCT: 28.41 uGy-m2 (microgray-meter squared). FL/FL barium swallow modified IMPRESSION: 1. Laryngeal penetration with thin barium and nectar barium. No laryngeal aspiration seen. Minimal residual fluid seen in the valleculae after the swallow. Patient refused a second swallow every time. 2. Correlate with speech therapy results.
--- NOTE | 2023-03-07 12:35 | MHC.SL.IMP ---
Date of Plan of Treatment: 03/07/23 Onset of Symptoms/Illness: 02/07/23 Date Treatment Started: 03/07/23 Admitting Diagnosis: Dysphagia, oropharyngeal phase (R13.12) Primary Speech & Language Diagnosis: R13.12 Oropharyngeal Phase Dysphagia Secondary Speech & Language Diagnosis: R13.14 Pharyngoesophageal Phase Dysphagia Reason for Today's Visit: 72102 Modified Barium Swallow Study Pre-evaluation Dietary Consistencies: Regular Pre-evaluation Liquid Consistency: Thin Pre-evaluation Medication Administration: Whole with Liquid Medical History: Acid Reflux [facility] Fall Risk Assessment Score: Low risk Oral Motor Exam Facial Symmetry: Normal for Patient Symmetrical Mouth Occlusion: Normal Oral Expression Ability: No Impairment Is patient able to manage secretions?: Yes Is patient able to produce volitional cough?: Yes Food and Liquid Trials: Oral Impairment: Lip Closure: 2=Escape @ interlabial space/lat juncture; not beyond vermilion border Oral Impairment: Tongue Control During Bolus Hold: 0=Cohesive bolus between tongue to palatal seal Oral Impairment: Bolus Preparation/Mastication: 0=Timely and efficient chewing and mashing Oral Impairment: Bolus Transport/Lingual Motion: 0=Brisk tongue motion Oral Impairment: Oral Residue: 1=Trace residue lining oral structures Oral Impairment:Initiation of Pharyngeal Swallow: 1=Bolus head in valleculae Pharyngeal Impairment: Soft Palate Elevation: 0=No bolus between soft palate (SP)/pharyngeal wall (PW) Pharyngeal Impairment: Laryngeal Elevation: 0=Complete superior movement of thyroid cartilage (see description) Pharyngeal Impairment: Anterior Hyoid Excursion: 0=Complete anterior movement Pharyngeal Impairment: Epiglottic Movement: 0=Complete inversion Pharyngeal Impairment: Laryngeal Vestibular Closure:: 0=Complete: no air/contrast in laryngeal vestibule Pharyngeal Impairment: Pharyngeal Stripping Wave: 0=Present: complete Pharyngeal Impairment: Pharyngeal Contraction: Did not test Pharyngeal Impairment: Pharyngoesophageal Segment Openin=Minimal distension/minimal duration: marked obstruction of flow Pharyngeal Impairment: Tongue Base (TB) Retraction: 1=Trace column of contrast/air between TB and posterior PW Pharyngeal Impairment: Pharyngeal Residue: 2=Collection of residue within or on pharyngeal structures Pharyngeal Impairment: Esophageal Clearance Upright Position: Did not test Impressions and Recommendations Clinical Observations: Time-out: performed at 10:35 Evaluation Start: 10:40; Stop: 11:00 Patient Positioning: Standing Viewing Planes: LATERAL ONLY Contrast: MBSImP? Standardized Protocol using commercially prepared, standardized Barium viscosities, including: Varibar? THIN LIQUID (40% w/v, <15 cps) , Varibar? PUDDING (40% w/v, <4388-6123 cps) , 1/2 Shortbread Cookie (1 x1 x.25 ) MBSImP ID: [id number] MBSImP Results: Lip closure for intraoral bolus containment resulted in bolus escape from the interlabial space or lateral juncture, but no extension beyond the vermilion border. Tongue control during bolus hold maintained a cohesive bolus held between tongue to palate seal. Bolus preparation and mastication resulted in timely and efficient chewing and mashing. Bolus transport/lingual motion was with brisk tongue motion. Oral residue was a trace, lining oral structures. Initiation of the pharyngeal swallow occurred when the bolus head was in the valleculae. Soft palate elevation resulted in no bolus between the soft palate and the pharyngeal wall. Laryngeal elevation demonstrated complete superior movement of the thyroid cartilage with complete approximation of the arytenoids to the epiglottic petiole. Anterior hyoid excursion demonstrated complete anterior movement. Epiglottic movement resulted in complete inversion. Laryngeal vestibular closure was complete, as indicated by no air or contrast within the laryngeal vestibule at the height of the swallow. Pharyngeal stripping wave was present and complete. Pharyngeal contraction could not be determined due to logistical reasons not related to physiologic impairment. Pharyngoesophageal segment opening demonstrated partial distension/partial duration, with partial obstruction of bolus flow. Tongue base retraction allowed a trace column of contrast or air between the retracted tongue base and the posterior pharyngeal wall. Pharyngeal residue was a trace within or on pharyngeal structures. Esophageal clearance in the upright position could not be assessed due to logistical reasons not related to physiologic impairment. Oral Impairment Score: 5 Pharyngeal Impairment Score: 1 (absence of score, component 13) Esophageal Impairment Score: --- (absence of score, component 17) Laryngeal Penetration and Aspiration: Neither penetration nor aspiration was observed in today's study with Cookie, Pudding-thick, Thin. Summary: Astrid demonstrated greater than expected UES obstruction with all consistencies trials but greater for Regular Solids than Puree Solid. With each subsequent swallow she was able to clear the pre-existing contrast, however more would be left in it's place. She passed a 13mm Barium Tablet with Thin Liquid water with no delays. Use of Thin Liquid was noted to clear a majority of the residue from the UES boundry. No reflux was observed in the distal esophagus on the trace amount trialed in this study. Liquid Intake Recommendation: Thin Liquid Intake Strategies: Double Swallow Dietary Recommendations: Regular Medication Administration: NPO Please contact the pharmacy regarding appropriate crushable or liquid drug formulations that are available whenever modified delivery is recommended. Compensatory Strategies Recommended: Small Bites and Sips Alternate Liquids/Solids Rate of Ingestion Change Supervision during eating and or drinking: Recommended Treatments: Recommendation for Speech Therapy: Further Testing Needed Text Comment: Recommend Pt follow-up with referring provider. It is suggested that she may experience symptom relief by alternating bites and sips of liquids. Frequency/Duration: Date Range for Service Requested: Timeline to reassess: PRN Lumber Sales Supervisor Clinician/Clinical Fellow: No Supervisory Statement: N/A Speech Language Pathologist: Jeffery Irizarry M.A., CCC-PLACEMENT SECRETARY
== END 2023-03-07 10:25 | disposition home or self-care (01) ==
LOC: HO.XRAY 10:24
PROVIDERS: PCP Nurse Practitioner Family; Visit Provider Nurse Practitioner
DX: R13.12 Dysphagia, oropharyngeal phase (principal)
CPT/HCPCS: 74230; 92611

== ENCOUNTER → 2023-03-07 10:27 | Outpatient (BNV) | payer OTHER, SELFPAY | PROVIDERS: PCP Nurse Practitioner Family; Visit Provider Radiology Diagnostic Radiology | DX: R13.12 Dysphagia, oropharyngeal phase (principal) | CPT/HCPCS: 74230 ==

== ENCOUNTER 2023-03-12 14:26 | Outpatient (REF) | payer OTHER, SELFPAY ==
--- NOTE | ~2023-03-12 | XR_ITS ---
EXAMINATION: XR cervical spine 3V CLINICAL INFORMATION: Pain COMPARISON: None TECHNIQUE: 3 views of the cervical spine were obtained. FINDINGS: The cervical spine is visualized to the level of C7-T1 on the lateral view. Loss of the usual cervical spine lordosis which may be due to positioning or muscle spasm. Vertebral body heights are maintained. Mild degenerative disc disease at C5-C6, manifested by minimal loss of disc space height and facet arthropathy anterior disc osteophyte complexes. Lateral masses of C1 are well aligned on C2. Visualized portion of the dens is intact. No prevertebral soft tissue swelling. XR/XR cervical spine 3V IMPRESSION: 1. Mild spondylosis of the cervical spine, as above detailed. 2. Loss of usual cervical spine lordosis which may be due to positioning or muscle spasm.
== END 2023-03-12 14:27 | disposition home or self-care (01) ==
LOC: HO.XRAY 14:26
PROVIDERS: PCP Nurse Practitioner Family; Visit Provider Nurse Practitioner Family
DX: M54.2 Cervicalgia (principal)
CPT/HCPCS: 72040

== ENCOUNTER 2023-03-18 10:33 | Outpatient (AMB) | payer OTHER, SELFPAY ==
--- NOTE | 2023-03-18 10:42 | A.OFFVIS_ITS ---
Intake Vital Signs 03/18/23 10:47 Height 5 ft 7 in Weight 180 lb BMI 28.2 BP 134/70 Blood Pressure Location Lt brachial Position Sitting Pulse 101 H Intake Visit Reasons: 3 week follow up BA swallow Intake Note: Patient follow up for BA swallow results. Patient cc: constipation and acid reflex with burning sensation. Denies any other GI issues. 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 She has a lot of acid reflux with acid brash and throwing up in my mouth. She has dysphagia of solid foods and pills in the upper throat and a globus sensation.She used to take Prilosec but it didn't do much. She has been of any acid reducing meds for 8 years. She is always constipated, at times only moving her bowels once a week and they are very hard. she has tried Miralax, Linzess, saw a cdl truck driver and they wanted her to start a probiotic but she has to do stool testing first. The prior meds did not do anything and did not produce results. BUT she was only had the 72mcg dose. She has had 2 colonoscopies r/t FHX on both sides for CRC, she was told the polyps were benign. Her last was at [facility] in 2019, and on 2014. Diet, very picky eats [place] yogurt, protein shake, granola bar, chicken/stead, potato and veggie (not a big veggie person) but will eat broccoli, green beans, corn. Not a lot of whole grains. She only drinks water and will drink 17oz bottles adn goes through 4-6 a day. Will She does not really know about fHX of similar problems, but her sister had CRC at age 47. She has used metamucil, and we discuss benefiber, ctira, pills, gummies etc. She would rather have egd/colon together, will get records and decide if we can. Will get mod barium swllow, start famotidine and Linzess 290, and ROV 3 weeks. (2) Chronic idiopathic constipation: Code(s): K59.04 - Chronic idiopathic constipation (3) Oropharyngeal dysphagia: Code(s): R13.12 - Dysphagia, oropharyngeal phase Orders: Orders FL barium swallow modified 02/07/23 R13.12 - Dysphagia , oropharyngeal ph ase Medications: New linaclotide (Linze ss) 290 mcg PO QAM 30 caps 3RF 30 days K59.04 - Chronic i diopathic constipa tion famotidine (Pepcid ) 40 mg PO BEDTIME 3 0 tabs 3RF K21.9 - Gastro-eso phageal reflux dis ease without esoph agitis BARIUM SWALLOW 03/07/23 FINDINGS: Following oral administration of thin barium and honey consistency barium there is laryngeal penetration with immediate clear out. No laryngeal aspiration is seen. On oral administration of puree, or no laryngeal penetration aspiration seen. With solid food/cookie coated with barium there is slight delay in oral mastication but normal propagation of bolus through the pharynx into esophagus. No laryngeal penetration or aspiration seen. There is minimal residual fluid in the valleculae after every first swallow. Patient refused to swallow a second time. FLUOROSCOPY TIME: 1 minute and 1 second. DOSE AREA PRODUCT: 28.41 uGy-m2 (microgray-meter squared). FL/FL barium swallow modified IMPRESSION: 1. Laryngeal penetration with thin bariu m and nectar barium. No laryngeal aspiration seen. Minimal residual fluid seen in the valleculae after the swallow. Patient refused a second swallow every time. 2. Correlate with speech therapy results . SPEECH THERAPY REPORT Summary: Astrid demonstrated greater than expected UES obstruction with all consistencies trials but greater for Regular Solids than Puree Solid. With each subsequent swallow she was able to clear the pre-existing contrast, however more would be left in it's place. She passed a 13mm Barium Tablet with Thin Liquid water with no delays. Use of Thin Liquid was noted to clear a majority of the residue from the UES boundry. No reflux was observed in the distal esophagus on the trace amount trialed in this study. Liquid Intake Recommendation: Thin Liquid Intake Strategies: Double Swallow Dietary Recommendations: Regular Medication Administration: NPO Please contact the pharmacy regarding appropriate crushable or liquid drug formulations that are available whenever modified delivery is recommended. Compensatory Strategies Recommended: Small Bites and SipsAlternate Liquids /Solids Rate of Ingestion Change Supervision during eating and or drinking: Recommended Treatments: Recommendation for Speech Therapy: Further Testing NeededText Comment: Recommend Pt follow-up with referring provider. It is suggested that she may experience symptom relief by alternating bites and sips of liquids. Frequency/Duration: Date Range for Service Requested: Timeline to reassess: PRN TODAY'S VISIT She has not started the Linzess yet, will be having CTS surgery and will try it then. Taking famotidine, no change yet in her swallowing. Agreeable to EGD. We reviewed the barium swallow which shows unexpected resistance in the upper esophageal area on the speech therapy evaluation. Her asthma is well controlled and she denies any cardiac problems. There are no prior problems with anesthesia or sedation. There are no infectious disease problems. ROV 3 weeks to evaluate her response to the Linzess and the famotidine. 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 Review of Systems Const Denies fatigue, Denies fever(s), Denies night sweats, Denies poor appetite and Denies weight loss ENT Reports Normal hearing present, Denies dental pain, Reports dysphagia, Denies hearing loss, Denies mouth pain, Denies odynophagia, Denies throat swelling, Denies tongue swelling and Reports other (Dentition adequate) Card Reports no additional complaints Resp Reports no additional complaints GI Denies abdominal pain, Denies melena, Denies bloating, Denies hematochezia, Reports constipation, Denies GI cramping, Reports dysphagia, Denies excessive flatus, Denies early satiety, Reports heartburn, Denies diarrhea, Denies nausea, Denies odynophagia, Denies vomiting and Denies hematemesis Skin/Breast Denies pruritus, Denies lesions, Denies rash and Denies jaundice Neuro Reports Normal hearing present and Denies Abnormal speech present Endo Denies fatigue Aller/Immun Denies throat swelling and Denies tongue swelling Physical Exam Vital Signs: Last Vital Signs Pulse 101 H 03/18/23 10:47 BP 134/70 03/18/23 10:47 BMI result Body Mass Index 28.2 Const General: cooperative, no acute distress, well developed and well groomed Nutritional Appearance: average body habitus and well nourished Orientation/consciousness: oriented to person, oriented to place and oriented to time Limitations: No language barrier HEENT Head: Yes normocephalic and Yes atraumatic Eyes General: appearance normal, both eyes and all related structures Pupils: Equal, round and reactive pupils present Neck Neck: Yes normal visual inspection and Yes no lymphadenopathy Thyroid: Thyroid normal Resp Effort & Inspection: normal respiratory effort and able to speak in complete sentences Auscultation: clear to auscultation bilaterally Cardio Rate: regular rate Rhythm: regular rhythm Heart sounds: Normal, physiologic split S2 sound present Peripheral pulses: radial pulses present and posterior tibial pulses present GI Inspection: No distended and No Abdominal panniculus present Palpation (GI): Soft to palpation, nontender, no guarding, not rigid and No hepatosplenomegaly present Percussion: Yes normal to percussion Auscultation: normal bowel sounds Rectal Exam - Female: deferred Skin General skin exam: no rashes or lesions noted, turgor normal, skin not dry, no jaundice, No spider nevi and no striae Rashes: no rashes Nails: normal Neuro General: oriented to person, oriented to place and oriented to time Cranial nerves: Yes Equal, round and reactive pupils present and Yes Normal hearing present Speech: No Abnormal speech present Extrem General: Yes normal to inspection, No clubbing, No cyanosis and No edema Psych Appearance: grossly normal and well kempt Mental Status: mental status grossly normal Speech and movement: Normal speech and movement present Affect: normal affect Attitude: cooperative Thought process: Normal thought process present and not confabulating Thought content: Normal thought content present Insight: Limited insight present (Psych) Judgement: Limited judgement present (Psych) Results Reviewed Results Reviewed: BARIUM SWALLOW 03/07/23 FINDINGS: Following oral administration of thin barium and honey consistency barium there is laryngeal penetration with immediate clear out. No laryngeal aspiration is seen. On oral administration of puree, or no laryngeal penetration aspiration seen. With solid food/cookie coated with barium there is slight delay in oral mastication but normal propagation of bolus through the pharynx into esophagus. No laryngeal penetration or aspiration seen. There is minimal residual fluid in the valleculae after every first swallow. Patient refused to swallow a second time. FLUOROSCOPY TIME: 1 minute and 1 second. DOSE AREA PRODUCT: 28.41 uGy-m2 (microgray-meter squared). FL/FL barium swallow modified IMPRESSION: 1. Laryngeal penetration with thin barium and nectar barium. No laryngeal aspiration seen. Minimal residual fluid seen in the valleculae after the swallow. Patient refused a second swallow every time. 2. Correlate with speech therapy results. SPEECH THERAPY REPORT Summary: Astrid demonstrated greater than expected UES obstruction with all consistencies trials but greater for Regular Solids than Puree Solid. With each subsequent swallow she was able to clear the pre-existing contrast, however more would be left in it's place. She passed a 13mm Barium Tablet with Thin Liquid water with no delays. Use of Thin Liquid was noted to clear a majority of the residue from the UES boundry. No reflux was observed in the distal esophagus on the trace amount trialed in this study. Liquid Intake Recommendation: Thin Liquid Intake Strategies: Double Swallow Dietary Recommendations: Regular Medication Administration: NPO Please contact the pharmacy regarding appropriate crushable or liquid drug formulations that are available whenever modified delivery is recommended. Compensatory Strategies Recommended: Small Bites and SipsAlternate Liquids/Solids Rate of Ingestion Change Supervision during eating and or drinking: Recommended Treatments: Recommendation for Speech Therapy: Further Testing NeededText Comment: Recommend Pt follow-up with referring provider. It is suggested that she may experience symptom relief by alternating bites and sips of liquids. Frequency/Duration: Date Range for Service Requested: Timeline to reassess: PRN Assessment & Plan Assessment & Plan (1) Oropharyngeal dysphagia: Code(s): R13.12 - Dysphagia, oropharyngeal phase Plan: She has not started the Linzess yet, will be having CTS surgery and will try it then. Taking famotidine, no change yet in her swallowing. Agreeable to EGD. We reviewed the barium swallow which shows unexpected resistance in the upper esophageal area on the speech therapy evaluation. Her asthma is well controlled and she denies any cardiac problems. There are no prior problems with anesthesia or sedation. There are no infectious disease problems. ROV 3 weeks to evaluate her response to the Linzess and the famotidine. (2) Chronic idiopathic constipation: Code(s): K59.04 - Chronic idiopathic constipation (3) GERD (gastroesophageal reflux disease): Code(s): K21.9 - Gastro-esophageal reflux disease without esophagitis Orders: Orders EGD with [facility] - GI Use Only 03/18/23 R13.12 - Dysphagia, oropharyngeal phase Medications: Refilled linaclotide (Linzess) 290 mcg PO QAM 30 caps 3RF 30 days K59.04 - Chronic idiopathic constipation famotidine (Pepcid) 40 mg PO BEDTIME 30 tabs 3RF K21.9 - Gastro-esophageal reflux disease without esophagitis Coding Level of Care Code Est Pt Level 3 (84106) Diagnoses Oropharyngeal dysphagia R13.12 Chronic idiopathic constipation K59.04 GERD (gastroesophageal reflux disease) K21.9
[2023-03-18 10:47] VITALS: BP 134/70; PULSE 101; BMI 28.2
== END 2023-03-18 10:59 | disposition home or self-care (01) ==
PROVIDERS: PCP Nurse Practitioner Family; Visit Provider Nurse Practitioner
DX: R13.12 Dysphagia, oropharyngeal phase (principal); K59.04 Chronic idiopathic constipation; K21.9 Gastro-esophageal reflux disease without esophagitis
CPT/HCPCS: 99213

== ENCOUNTER → 2023-03-18 10:33 | Outpatient (BNVA) | payer OTHER, SELFPAY | PROVIDERS: PCP Nurse Practitioner Family; Visit Provider Nurse Practitioner ==

== ENCOUNTER 2023-03-20 09:37 | Day surgery (SDC) | payer OTHER, SELFPAY ==
[2023-03-20 09:44] VITALS: BMI 28.2
--- NOTE | 2023-03-20 10:15 | W.PM.OPN ---
Operative Note Operative Note Date of Service: 03/20/23 Narrative: Preop diagnosis: 1. Right Carpal tunnel syndrome Postop diagnosis: same Procedure: 1. Right Carpal tunnel release Surgeon: Ivania Monsivais MD Anesthesia: local block using 1% lidocaine with epinephrine Findings: Thickened transverse carpal ligament. EBL: Less than 5 mL Specimens: None Complications: None Disposition: Brought to recovery room in stable condition Plan: Follow-up for 10-14 days for wound check and suture removal Indications: The patient is 37 years old, with right carpal tunnel syndrome that has been unresponsive to nonoperative management. The risks and benefits of operative treatment including but not limited to risk of damage to blood vessels, nerves, tendons, infection, persistent pain, persistent symptoms, or possible need for additional surgery were discussed with the patient and the patient wishes to proceed with surgery. Procedure: Once consent was obtained a local block was performed using a combination of 1% lidocaine with epinephrine. The patient was then brought back to the operating suite and placed on the operative table in supine position. The right upper extremity was prepped and draped in a standard surgical fashion. Once assured that we had a good block, a 2.0 cm longitudinal incision was made centered over the carpal tunnel. The incision was made through the skin to the subcutaneous tissues using a #15 blade. Dissection was made down to the level of the transverse carpal ligament with care being taken to protect the palmar cutaneous nerve. Once the transverse carpal ligament was clearly visualized, a longitudinal incision was made in the transverse carpal ligament 1st using a #15 blade, then using tenotomy scissors under direct visualization. Care was taken to look for and protect the motor branch of the median nerve when seen in this area. Once satisfied with our carpal tunnel release the wound was copiously irrigated with normal saline and hemostasis was obtained with a brief period of local pressure. The skin edges were reapproximated with some 5.0 nylon suture material and a sterile dressing was applied. The patient appears to have tolerated the procedure well and with no complications. All digits were well vascularized at the conclusion of the case.
--- NOTE | 2023-03-20 10:16 | MHC.SHP ---
Pre-Procedural Eval Section A Date of Service: 03/20/23 The patient is an INPATIENT: No Changes since office visit: No Cold of Flu in the past 2 weeks, No New Medical Problems, No Changes in Medication and No Patient answered all questions The History & Physical has been completed within 30 days and I have reviewed it.: Yes Section B Chief Complaint: Carpal tunnel syndrome, right upper limb Allergies: Allergies Allergy/AdvReac Type Severity Reaction Status Date / Time flagyl Allergy Severe Vomiting Uncoded 02/05/23 08:19 Plan I have reviewed the history and physical and performed a pertinent physical examination on my patient. No changes have occurred unless specified. Patient on Accutane. According to the patient, per her employee benefits director recommendations are for a 6 month delay just surgery, but she is say that she can not have the surgery. The patient understands that she has a slightly increased risk of wound healing problems. This is a smaller procedure not involving muscles OR flaps. She says her numbness tingling is happening every day and she would like to proceed with the surgery. She is not a smoker and is not diabetic. Time Spent With Patient Time: Total time managing care of this patient today ____ minutes.
--- NOTE | 2023-03-20 11:50 | PC.NURSE ---
POST PROCEDURE VITAL SIGNS; 143/84, 107 (DR. ANDRADE), 100% RA, 18 RESP.
== END 2023-03-20 11:48 | disposition home or self-care (01) ==
PROVIDERS: PCP Nurse Practitioner Family; Visit Provider Orthopaedic Surgery
PROC: (CPT 64721; principal; 2023-03-20 10:50)
DX: G56.01 Carpal tunnel syndrome, right upper limb (principal); R20.0 Anesthesia of skin; R20.2 Paresthesia of skin; M79.644 Pain in right finger(s); Z88.8 Allergy status to other drugs, medicaments and biological substances; F42.9 Obsessive-compulsive disorder, unspecified
CPT/HCPCS: 64721; J0171

== ENCOUNTER → 2023-03-20 09:37 | Outpatient (BNV) | payer OTHER, SELFPAY | PROVIDERS: PCP Nurse Practitioner Family; Visit Provider Orthopaedic Surgery | DX: G56.01 Carpal tunnel syndrome, right upper limb (principal) | CPT/HCPCS: 64721 ==

== ENCOUNTER 2023-03-25 16:08 | Outpatient (REF) | payer OTHER, SELFPAY ==
--- NOTE | ~2023-03-25 | MM_ITS ---
EXAMINATION: MM SCREENING DIGITAL BREAST TOMOSYNTHESIS, BILATERAL CLINICAL INFORMATION: Screening. Asymptomatic. COMPARISON: Mammography: This study is compared with prior exams dating back to 2021. TECHNIQUE: Digital breast tomosynthesis is performed in both the craniocaudal and mediolateral oblique views along with computer-aided detection (CAD). Synthesized 2D images are generated from the tomosynthesis. FINDINGS: There are scattered areas of fibroglandular density (ACR BI-RADS breast composition Category b). There is a focal asymmetry in the upper outer quadrant of the right breast. Additional mammographic and targeted sonographic evaluation is advised. There are no other significant findings in the region of the right breast. In the left breast, there are no significant masses, abnormal calcifications, or other abnormalities. MM/MM tomosynthesis screening BI IMPRESSION: Focal asymmetry of the right breast warrants additional mammographic and targeted sonographic evaluation. No mammographic signs of malignancy left breast. ASSESSMENT: BI-RADS BI-RADS 0 - Incomplete: Needs additional Imaging. RECOMMENDATION: 1. Additional views of the right breast 2. Targeted ultrasound if warranted after review of the additional views. 3. Radiology department staff will contact the patient for additional imaging. Additional Imaging required This examination should not preclude the clinical evaluation of a suspicious palpable abnormality. This patient's information was entered into a reminder system with a target due date for their next mammogram.
== END 2023-03-25 16:09 | disposition home or self-care (01) ==
LOC: HO.MAMMO 16:08
PROVIDERS: PCP Nurse Practitioner Family; Visit Provider Nurse Practitioner Family
DX: Z12.31 Encounter for screening mammogram for malignant neoplasm of breast (principal)
CPT/HCPCS: 77063; 77067

== ENCOUNTER → 2023-03-25 16:15 | Outpatient (BNV) | payer OTHER, SELFPAY | PROVIDERS: PCP Nurse Practitioner Family; Visit Provider Radiology Diagnostic Radiology | DX: Z12.31 Encounter for screening mammogram for malignant neoplasm of breast (principal) | CPT/HCPCS: 77063; 77067 ==

== ENCOUNTER 2023-04-01 08:39 | Outpatient (AMB) | payer OTHER, MEDICAID, SELFPAY ==
--- NOTE | 2023-04-01 08:40 | MHC.OFFVIS ---
Intake Vital Signs 04/01/23 08:41 Height 5 ft 7 in Weight 180 lb BMI 28.2 Intake Visit Reasons: PO RT CTR 03/20/23AR Intake Note: Astrid 37 yr old female presents today for her P/O visit for her right CTR from 03/20/23. States numbness has improved. Sutures removed and steri strips applied. Allergies flagyl Allergy (Severe, Uncoded 04/01/23 08:48) Vomiting HPI PO RT CTR 03/20/23AR HPI Details The patient is here for follow-up visit after her right carpal tunnel release on 03/20/2023. She says that she has had good resolution of her numbness and tingling and also no longer has nighttime symptoms. 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 Her incision is healing well with no erythema drainage or evidence of infection. Sutures removed and Steri-Strips applied. She can make a fist and extend all of her digits. Normal sensation to the tips of all digits and good APB muscle belly firing Assessment & Plan Assessment & Plan (1) Carpal tunnel syndrome of right wrist: Code(s): G56.01 - Carpal tunnel syndrome, right upper limb Plan Assessment and plan: 1. Right carpal tunnel syndrome status post release Date of surgery 03/20/2023 Good resolution of numbness and tingling following surgery. She appears to be doing well postoperatively. I educated her about the postoperative course. We talked about activity modification. I gave her a note returning her to work tomorrow on light duty with a 2 lb weight limit for 2 weeks. She can resume full duty on 04/21/2023. 2. Left hand numbness In the median nerve distribution Symptoms intermittent, but daily, worse at night ? Negative on NCS on 11/14/21 If her symptoms persist or worsen we can discuss a new NCS to assess her left hand. ? ? 3. Right hand pain Dorsal area distal 4th metacarpal to mid proximal phalanx Old injury when she was ~14 years old Symptoms intermittent & occasional Present for ~5 years No locking or catching Benign clinical exam ? This will be managed conservatively Consider radiographs is symptoms become more problematic ? 4. Left 5th metacarpal shaft pain No known injury, present for ~1 year Symptoms intermittent & occasional, perhaps 2x weekly Benign clinical exam ? This will be managed conservatively Consider radiographs is symptoms become more problematic. Coding Level of Care Code Global (10576) Diagnoses Carpal tunnel syndrome of right wrist G56.01
[2023-04-01 08:41] VITALS: BMI 28.2
== END 2023-04-01 09:19 | disposition home or self-care (01) ==
PROVIDERS: PCP Nurse Practitioner Family; Visit Provider Orthopaedic Surgery
DX: G56.01 Carpal tunnel syndrome, right upper limb (principal)
CPT/HCPCS: 99024

== ENCOUNTER → 2023-04-01 08:39 | Outpatient (BNVA) | payer OTHER, MEDICAID, SELFPAY | PROVIDERS: PCP Nurse Practitioner Family; Visit Provider Orthopaedic Surgery ==

== ENCOUNTER 2023-04-08 12:37 | Outpatient (AMB) | payer OTHER, SELFPAY ==
--- NOTE | 2023-04-08 12:44 | MHC.OFFVIS ---
Intake Vital Signs 04/08/23 12:45 Height 5 ft 7 in Weight 176 lb 5.917 oz BMI 27.6 BP 124/69 Blood Pressure Location Lt brachial Position Sitting Pulse 96 Intake Visit Reasons: 3 week follow up Intake Note: Astrid presents in the office as a 3 week follow up. CC: She states that she is not having any concerns today. Allergies flagyl Allergy (Severe, Uncoded 04/08/23 12:46) Vomiting HPI 3 week follow up HPI Details Assessment & Plan (1) GERD (gastroesophageal reflux disease): Code(s): K21.9 - Gastro-esophageal reflux disease without esophagitis Plan: The problem started many years ago, she had an EGD at [facility] and she had a neg biopsy for SSBE. She has a lot of acid reflux with acid brash and throwing up in my mouth. She has dysphagia of solid foods and pills in the upper throat and a globus sensation.She used to take Prilosec but it didn't do much. She has been of any acid reducingmeds for 8 years. She is always constipated, at times only moving her bowels once a week and they are very hard. she has tried Miralax, Linzess, saw a screen tacker and they wanted her to start a probiotic but she has to do stool testing first. The prior meds did not do anything and did not produce results. BUT she was only had the 72mcg dose. She has had 2 colonoscopies r/t FHX on both sides for CRC, she was told the polyps were benign. Her last was at [facility] in 2019, and on 2014. Diet, very picky eats Frisian yogurt, protein shake, granola bar, chicken/stead, potato and veggie (not a big veggie person) but will eat broccoli, green beans, corn. Not a lot of whole grains. She only drinks water and will drink 17oz bottles adn goes through 4-6 a day. Will She does not really know about fHX of similar problems, but her sister had CRC at age 47. She has used metamucil, and we discuss benefiber, ctira, pills, gummies etc. She would rather have egd/colon together, will get records and decide if we can. Will get mod barium swllow, start famotidine and Linzess 290, and ROV 3 weeks. (2) Chronic idiopathic constipation: Code(s): K59.04 - Chronic idiopathic constipation (3) Oropharyngeal dysphagia: Code(s): R13.12 - Dysphagia, oropharyngeal phase Orders: Orders FL barium swallow modified 02/07/23 R13.12 - Dysphagia , oropharyngeal ph ase Medications: New linaclotide (Linze ss) 290 mcg PO QAM 30 caps 3RF 30 days K59.04 - Chronic i diopathic constipa tion famotidine (Pepcid ) 40 mg PO BEDTIME 3 0 tabs 3RF K21.9 - Gastro-eso phageal reflux dis ease without esoph agitis MODIFIED BARIUM SWALLOW 03/07/23 MPRESSION: 1. Laryngeal penetration with thin barium and nectar barium. No laryngeal aspiration seen. Minimal residual fluid seen in the valleculae after the swallow. Patient refused a second swallow every time. 2. Correlate with speech therapy results. SPEECH THERAPY REPORT Summary: Astrid demonstrated greater than expected UES obstruction with all consistencies trials but greater for Regular Solids than Puree Solid. With each subsequent swallow she was able to clear the pre-existing contrast, however more would be left in it's place. She passed a 13mm Barium Tablet with Thin Liquid water with no delays. Use of Thin Liquid was noted to clear a majority of the residue from the UES boundry. No reflux was observed in the distal esophagus on the trace amount trialed in this study. Liquid Intake Recommendation: Thin Liquid Intake Strategies: Double Swallow Dietary Recommendations: Regular Medication Administration: NPO Please contact the pharmacy regarding appropriate crushable or liquid drug formulations that are available whenever modified delivery is recommended. Compensatory Strategies Recommended: Small Bites and SipsAlternate Liquids/Solids Rate of Ingestion Change Supervision during eating and or drinking: Recommended Treatments: Recommendation for Speech Therapy: Further Testing NeededText Comment: Recommend Pt follow-up with referring provider. It is suggested that she may experience symptom relief by alternating bites and sips of liquids. Frequency/Duration: Date Range for Service Requested: Timeline to reassess: PRN EGD BIOPSY TODAY'S VISIT She continues with the dyphagia no change with famotidine. We review the swallowing studies and it does show a delay in the upper esophagus this really unexplained. I hope that may be was esophageal spasm but there has been no change with the famotidine. Linzess dose is likely too high as she will tend to have diarrheal movements after each meal when she takes the 290 micro g dose. Will drop to the 145 and continue to titrate to affect her side effect. I think we really need to get endoscopy to take a look and see if upper esophageal dilation is a possibility or this any other pathology. If we cannot uncover the problem we may need an ENT referral. Return office visit in 4-5 weeks to titrate the Linzess. 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 Review of Systems Const Denies fatigue, Denies fever(s), Denies night sweats, Denies poor appetite and Denies weight loss ENT Reports Normal hearing present, Denies dental pain, Reports dysphagia, Denies hearing loss, Denies mouth pain, Denies odynophagia, Denies throat swelling, Denies tongue swelling and Reports other (Dentition adequate) Card Reports no additional complaints Resp Reports no additional complaints GI Denies abdominal pain, Denies melena, Denies bloating, Denies hematochezia, Reports constipation, Denies GI cramping, Reports dysphagia, Denies excessive flatus, Denies early satiety, Denies heartburn, Denies diarrhea, Denies nausea, Denies odynophagia, Denies vomiting and Denies hematemesis Skin/Breast Denies pruritus, Denies lesions, Denies rash and Denies jaundice Neuro Reports Normal hearing present and Denies Abnormal speech present Endo Denies fatigue Aller/Immun Denies throat swelling and Denies tongue swelling Physical Exam Vital Signs: Last Vital Signs Pulse 96 04/08/23 12:45 BP 124/69 04/08/23 12:45 BMI result Body Mass Index 27.6 Const General: cooperative, no acute distress, well developed and well groomed Nutritional Appearance: well nourished Orientation/consciousness: oriented to person, oriented to place and oriented to time Limitations: No language barrier HEENT Head: Yes normocephalic and Yes atraumatic Eyes General: appearance normal, both eyes and all related structures Pupils: Equal, round and reactive pupils present Neck Neck: Yes normal visual inspection and Yes no lymphadenopathy Thyroid: Thyroid normal Resp Effort & Inspection: normal respiratory effort and able to speak in complete sentences Auscultation: clear to auscultation bilaterally Cardio Rate: regular rate Rhythm: regular rhythm Heart sounds: Normal, physiologic split S2 sound present Peripheral pulses: radial pulses present and posterior tibial pulses present GI Inspection: No distended and No Abdominal panniculus present Palpation (GI): Soft to palpation, nontender, no guarding, not rigid and No hepatosplenomegaly present Percussion: Yes normal to percussion Auscultation: normal bowel sounds Rectal Exam - Female: deferred Skin General skin exam: no rashes or lesions noted, turgor normal, skin not dry, no jaundice, No spider nevi and no striae Rashes: no rashes Nails: normal Neuro General: oriented to person, oriented to place and oriented to time Cranial nerves: Yes Equal, round and reactive pupils present and Yes Normal hearing present Speech: No Abnormal speech present Extrem General: Yes normal to inspection, No clubbing, No cyanosis and No edema Psych Appearance: grossly normal and well kempt Mental Status: mental status grossly normal Speech and movement: Normal speech and movement present Affect: normal affect Attitude: cooperative Thought process: Normal thought process present and not confabulating Thought content: Normal thought content present Insight: Fair insight present (Psych) Judgement: Fair judgement present (Psych) Results Reviewed Results Reviewed: MODIFIED BARIUM SWALLOW 10/20/23 MPRESSION: 1. Laryngeal penetration with thin barium and nectar barium. No laryngeal aspiration seen. Minimal residual fluid seen in the valleculae after the swallow. Patient refused a second swallow every time. 2. Correlate with speech therapy results. SPEECH THERAPY REPORT Summary: Astrid demonstrated greater than expected UES obstruction with all consistencies trials but greater for Regular Solids than Puree Solid. With each subsequent swallow she was able to clear the pre-existing contrast, however more would be left in it's place. She passed a 13mm Barium Tablet with Thin Liquid water with no delays. Use of Thin Liquid was noted to clear a majority of the residue from the UES boundry. No reflux was observed in the distal esophagus on the trace amount trialed in this study. Liquid Intake Recommendation: Thin Liquid Intake Strategies: Double Swallow Dietary Recommendations: Regular Medication Administration: NPO Please contact the pharmacy regarding appropriate crushable or liquid drug formulations that are available whenever modified delivery is recommended. Compensatory Strategies Recommended: Small Bites and SipsAlternate Liquids/Solids Rate of Ingestion Change Supervision during eating and or drinking: Recommended Treatments: Recommendation for Speech Therapy: Further Testing NeededText Comment: Recommend Pt follow-up with referring provider. It is suggested that she may experience symptom relief by alternating bites and sips of liquids. Frequency/Duration: Date Range for Service Requested: Timeline to reassess: PRN Assessment & Plan Assessment & Plan (1) Oropharyngeal dysphagia: Code(s): R13.12 - Dysphagia, oropharyngeal phase (2) GERD (gastroesophageal reflux disease): Code(s): K21.9 - Gastro-esophageal reflux disease without esophagitis (3) Chronic idiopathic constipation: Code(s): K59.04 - Chronic idiopathic constipation Plan Timeline to reassess: PRN EGD BIOPSY TODAY'S VISIT She continues with the dyphagia no change with famotidine. We review the swallowing studies and it does show a delay in the upper esophagus this really unexplained. I hope that may be was esophageal spasm but there has been no change with the famotidine. Linzess dose is likely too high as she will tend to have diarrheal movements after each meal when she takes the 290 micro g dose. Will drop to the 145 and continue to titrate to affect her side effect. I think we really need to get endoscopy to take a look and see if upper esophageal dilation is a possibility or this any other pathology. If we cannot uncover the problem we may need an ENT referral. Return office visit in 4-5 weeks to titrate the Linzess. Medications: New linaclotide (Linzess) 145 mcg PO QAM 30 caps 3RF K59.04 - Chronic idiopathic constipation Discontinued linaclotide (Linzess) Discontinued Reason: Doctor's Order 290 mcg PO QAM 30 days 30 caps 3RF K59.04 - Chronic idiopathic constipation Coding Level of Care Code Est Pt Level 3 (21015) Diagnoses Oropharyngeal dysphagia R13.12 GERD (gastroesophageal reflux disease) K21.9 Chronic idiopathic constipation K59.04
[2023-04-08 12:45] VITALS: BP 124/69; PULSE 96; BMI 27.6
== END 2023-04-08 13:19 | disposition home or self-care (01) ==
PROVIDERS: PCP Nurse Practitioner Family; Visit Provider Nurse Practitioner
DX: R13.12 Dysphagia, oropharyngeal phase (principal); K21.9 Gastro-esophageal reflux disease without esophagitis; K59.04 Chronic idiopathic constipation
CPT/HCPCS: 99213

== ENCOUNTER → 2023-04-08 12:37 | Outpatient (BNVA) | payer OTHER, SELFPAY | PROVIDERS: PCP Nurse Practitioner Family; Visit Provider Nurse Practitioner ==

== ENCOUNTER 2023-04-18 10:17 | Day surgery (SDC) | payer OTHER, SELFPAY ==
--- NOTE | 2023-04-16 15:19 | HO.ANESPROP2 ---
Documented by User: Ladi Dowell NP 04/16/23 15:20 HPI - Anesthesia Eval Consult details Narrative: 38yo F for Upper Endoscopy with Balloon Dilitation PMFSH Active Problems Active Problems: All Active Problems (Updated 02/07/23 @ 08:51 by VICKEY Membreno) Oropharyngeal dysphagia (Acute) Pain in finger of left hand (Acute) Pain in finger of right hand (Acute) Numbness and tingling in left hand (Acute) Carpal tunnel syndrome of right wrist (Acute) Discoid lupus (Acute) GERD (gastroesophageal reflux disease) (Acute) Chronic idiopathic constipation (Acute) Axillary hyperhidrosis (Acute) Fatty liver disease, nonalcoholic (Acute) Long-term use of Plaquenil (Acute) Depression with anxiety (Acute) OCD (obsessive compulsive disorder) (Acute) ADHD (Acute) Family history of clotting disorder (Acute) Asthma (Acute) Past Medical History Medical History H/O LEEP (loop electrosurgical excision procedure) of cervix complicating History of nephrolithiasis Family History Family History Sister Colon cancer Paternal Grandfather Colon cancer Surgical History Surgical History History of carpal tunnel surgery H/O esophagogastroduodenoscopy H/O colonoscopy S/P skin biopsy Social History Social History Household Members: Family Alcohol intake: never Comment: all counts correct Patient Tobacco Use Status: Former Tobacco user Second Hand Smoke Exposure: No 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 Allergies Allergy/AdvReac Type Severity Reaction Status Date / Time flagyl Allergy Severe Vomiting Uncoded 04/08/23 12:46 Home Medications Medication Instructions Recorded Confirmed Last Taken Type dextroamphetamine-amphetamine 20 20 mg PO DAILY 02/05/23 04/18/23 04/18/23 History mg tablet (Adderall) hydroxychloroquine 200 mg tablet 200 mg PO BID 02/05/23 04/18/23 Unknown History lamotrigine 25 mg tablet 50 mg PO BID 02/05/23 04/18/23 04/18/23 History levonorgestrel 0.15 mg-ethinyl PO 02/05/23 Unknown History estradiol 30 mcg tablets,3 mos pack(91) Accutane 03/20/23 03/20/23 03/20/23 History isotretinoin 40 mg capsule 40 mg PO BID 04/08/23 04/18/23 Unknown History (Claravis) mupirocin 2 % topical ointment 1 appl topical BID-TID 04/08/23 04/18/23 Unknown History Exam Pertinent Lab Results Pertinent Lab Results: Laboratory Tests 12/17/22 12/17/22 12/17/22 09:47 09:47 09:47 WBC Hgb Hct Plt Count Sodium 140 Potassium 4.8 Chloride 106 Carbon Dioxide 22 BUN 16 Creatinine 0.80 02/27/23 02/27/23 08:43 08:43 WBC 5.5 Hgb 12.7 Hct 38.9 Plt Count 305 Sodium Potassium Chloride Carbon Dioxide BUN Creatinine Assessment and Plan Assessment Anesthesia Assessment: Chart Reviewed Documented by User: Krista Gonzalez MD 04/18/23 11:45 HPI - Anesthesia Eval Consult details Narrative: 38yo F for Upper Endoscopy with Balloon Dilatation PMFSH Active Problems Active Problems: All Active Problems (Updated 04/18/23 @ 10:35 by Krista Gonzalez MD) Oropharyngeal dysphagia (Acute) Pain in finger of left hand (Acute) Pain in finger of right hand (Acute) Numbness and tingling in left hand (Acute) Carpal tunnel syndrome of right wrist (Acute) Discoid lupus (Acute) GERD (gastroesophageal reflux disease) (Acute) Chronic idiopathic constipation (Acute) Axillary hyperhidrosis (Acute) Fatty liver disease, nonalcoholic (Acute) Long-term use of Plaquenil (Acute) Depression with anxiety (Acute) OCD (obsessive compulsive disorder) (Acute) ADHD (Acute) Family history of clotting disorder (Acute) Asthma - inhaler prn Facial and hand rash- just started on steroids Scar of recent Right carpal tunnel surgery Right hand Denies LUKAS Past Medical History Medical History H/O LEEP (loop electrosurgical excision procedure) of cervix complicating History of nephrolithiasis Family History Family History Sister Colon cancer Paternal Grandfather Colon cancer Family history of problems with anesthesia: No Surgical History Surgical History History of carpal tunnel surgery H/O esophagogastroduodenoscopy H/O colonoscopy S/P skin biopsy History of Problems with Anesthesia: No Social History Social History Household Members: Family Alcohol intake: never Comment: all counts correct Patient Tobacco Use Status: Former Tobacco user Second Hand Smoke Exposure: No 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 Allergy/AdvReac Type Severity Reaction Status Date / Time flagyl Allergy Severe Vomiting Uncoded 04/08/23 12:46 Home Medications Medication Instructions Recorded Confirmed Last Taken Type dextroamphetamine-amphetamine 20 20 mg PO DAILY 02/05/23 04/18/23 04/18/23 History mg tablet (Adderall) hydroxychloroquine 200 mg tablet 200 mg PO BID 02/05/23 04/18/23 Unknown History lamotrigine 25 mg tablet 50 mg PO BID 02/05/23 04/18/23 04/18/23 History levonorgestrel 0.15 mg-ethinyl PO 02/05/23 Unknown History estradiol 30 mcg tablets,3 mos pack(91) Accutane 03/20/23 03/20/23 03/20/23 History isotretinoin 40 mg capsule 40 mg PO BID 04/08/23 04/18/23 Unknown History (Claravis) mupirocin 2 % topical ointment 1 appl topical BID-TID 04/08/23 04/18/23 Unknown History Exam Height,Weight and Vital Signs: Height 5 ft 7 in Weight 80.002 kg Vital Signs Temp Pulse Resp BP Pulse Ox O2 Del Method 04/18/23 10:40 97.7 F 105 H 16 146/80 H 100 Room Air Narrative Narrative: Lab Results 04/18/23 Range/Units 10:32 Urine Test NEGATIVE (NEGATIVE) Airway Mallampati Class: II TM Dist: >3cm Neck ROM: Full Loose/Missing/Broken Teeth: No (Denies broken, loose, missing teeth) Heart: RRR Lungs: CTAB Other: Stud left earlobe. Patient states unable to remove. Aware of possibility of dislodgement/loss, matthew, pressure from laying on left side. OK with these and wishes to proceed. Assessment and Plan Assessment Anesthesia Assessment: Anesthesia Plan Discussed Final Anesthetic Review Family History of Problems with Anesthesia: No History of Problems with Anesthesia: No NPO: Yes ASA Class: II Final Preanesthetic Review: No Changes in Pt Med Stat, Meds/Allgs Chart Reviewed, Consent Obtained/Reviewed and Anes Risks/Benef Reviewed Patient Risk: Low Procedure Risk: Low Anesthetic Plan Anesthetic Plan: MAC: Disposition: Standard PACU
[2023-04-18 10:40] VITALS: BP 146/80; PULSE 105; RESP 16; TEMP 36.5; O2SAT 100; BMI 27.6
[2023-04-18 10:52] LABS: UPreg QC Valid YES; Urine Pregnancy NEGATIVE (NEGATIVE)
[2023-04-18] MEDS: Lactated Ringers 1,000 ML 100 ML IVCONT (11:04)
--- NOTE | 2023-04-18 12:05 | MHC.SHP ---
Pre-Procedural Eval Section A Date of Service: 04/18/23 Section B Chief Complaint: Dysphagia, oropharyngeal phase Details of Present Illness: colon cancer Relevant Family History (Specify if Yes): Yes Relevant Social History: None Present Medications: see Short Stay Collaborative assessment Medical History: Significant History ( H/O LEEP (loop electrosurgical excision procedure) of cervix complicating History of nephrolithiasis,asthma, NAFLD, GERD, discoid lupus ) History of Previous Operations: Relevant previous surgery/procedure and date(s) (History of carpal tunnel surgery H/O esophagogastroduodenoscopy H/O colonoscopy S/P skin biopsy) Allergies: Allergies Allergy/AdvReac Type Severity Reaction Status Date / Time flagyl Allergy Severe Vomiting Uncoded 04/08/23 12:46 Review of Systems Sugical H&P ROS: Negative: Constitution, Cardiovascular, Respiratory, Neurological, Psychiatric, Hem-Onc, Allergic/Immunologic, Gastrointestinal, Genitourinary, Musculoskeletal, Integumentary, Endocrine and Eyes/Ears/Nose/Throat Exam Surgical H&P Exam: Normal: HEENT, Normal: Heart, Normal: Lungs, Normal: Extremities, Normal: Abdomen, Normal: Skin and Normal: Neurological Plan Diagnosis/Plan: Unchanged I have reviewed the history and physical and performed a pertinent physical examination on my patient. No changes have occurred unless specified. Time Spent With Patient Time: Total time managing care of this patient today ____ minutes.
--- NOTE | 2023-04-18 12:25 | W.PM.OPN ---
Operative Note Operative Note Date of Service: 04/18/23 Narrative: Procedure Description: EGD Indication: dysphagia Anesthesia: MAC FLEXIBLE TRANSORAL UPPER GASTROINTESTINAL ENDOSCOPY UPPER ENDOSCOPY Consent: Indications for the procedure and potential complications of bleeding, perforation, reaction to medications and missed diagnosis were discussed with the patient and informed consent was obtained. Instrument: Olympus GIF H 190 J mid size upper endoscope Monitoring: Vital signs and clinical assessment, continuous EKG monitoring, Pulse oximetry, Carbon Dioxide monitoring and blood pressure monitoring were done throughout the procedure. Procedure: The patient was placed in the left lateral decubitis position and pre-procedure medications were administered and a bite block was placed. The endoscope was inserted into the mouth and advanced under direct vision to the third part of duodenum. A careful inspection was made as the upper endoscope was withdrawn including a retroflexed examination of the proximal stomach; Findings and interventions are described below. Findings: Larynx:normal Esophagus: GE junction at 35 cm, diaphragm hiatus at 35 cm, some congestion and bogginess at GEJ, bx taken, dilated to 19 mm at UES and LES, no tears seen, bx also taken from distal and proximal esophagus Stomach: Patchy linear streaks of gastric erythema. Biopsies were obtained. Grade 2 flap valve on retroflexed examination of the cardia. Duodenum: Mild duodenitis , bx taken Intervention: Biopsies as noted above, balloon dilation Impression/Findings: esophagitis duodenitis gastritis PLAN: can consider PPI will probably help her sx significantly if she has ongoing sx can get GES and hough studies
[2023-04-18 12:32] VITALS: BP 127/85; PULSE 93; RESP 24; TEMP 36.6; O2SAT 100
[2023-04-18 12:47] VITALS: BP 123/83; PULSE 88; RESP 18; TEMP 36.6; O2SAT 100
== END 2023-04-18 13:21 | disposition home or self-care (01) ==
PROVIDERS: Nurse Practitioner; PCP Nurse Practitioner Family; Visit Provider Internal Medicine Gastroenterology
PROC: (CPT 43249; principal; 2023-04-18 11:30)
DX: R13.12 Dysphagia, oropharyngeal phase (principal); K29.70 Gastritis, unspecified, without bleeding; K20.80 Other esophagitis without bleeding; K29.80 Duodenitis without bleeding; K44.9 Diaphragmatic hernia without obstruction or gangrene; Z87.442 Personal history of urinary calculi
CPT/HCPCS: 43249; 43239; 81025; 88305; 88342; C1726; J2250; J2704

== ENCOUNTER → 2023-04-18 10:17 | Outpatient (BNV) | payer OTHER, SELFPAY | PROVIDERS: PCP Nurse Practitioner Family; Visit Provider Internal Medicine Gastroenterology | DX: R13.10 Dysphagia, unspecified (principal); K20.90 Esophagitis, unspecified without bleeding; K29.80 Duodenitis without bleeding; K29.60 Other gastritis without bleeding | CPT/HCPCS: 43239; 43249 ==

== ENCOUNTER 2023-04-22 07:57 | Outpatient (REF) | payer OTHER, SELFPAY ==
--- NOTE | ~2023-04-22 | US_ITS ---
EXAMINATION: MM DIAGNOSTIC DIGITAL BREAST TOMOSYNTHESIS, RIGHT US BREAST LIMITED, RIGHT MAMMOGRAPHY: CLINICAL INFORMATION: The patient presents for further evaluation of a focal asymmetry in the upper outer quadrant of the right breast as noted on recent screening mammography from 04/13/2023. COMPARISON: Mammography: This study is compared with prior mammography dating back to 2021. TECHNIQUE: Digital breast tomosynthesis is performed in both the craniocaudal and mediolateral oblique views along with computer-aided detection (CAD). Synthesized 2D images are generated from the tomosynthesis. FINDINGS: There are scattered areas of fibroglandular density (ACR BI-RADS breast composition Category b). There are no mammographic signs of malignancy. Additional mammographic imaging reveals a focal asymmetry with no suspicious features. ULTRASOUND: CLINICAL INFORMATION: Sonographic evaluation for focal asymmetry of the right breast. TECHNIQUE: Targeted sonographic evaluation was performed using a high frequency linear transducer. Selected archived documentation. FINDINGS: RIGHT BREAST: Sonography of the upper outer quadrant of the right breast reveals no focal abnormalities. US/US breast RT limited mamm only IMPRESSION: No mammographic evidence of malignancy. Short interval mammographic follow-up in 6 months advised for probably benign focal asymmetry of the right breast which may represent fatty infiltrated, normal lymphoid tissue. OVERALL ASSESSMENT: Mammography: BI-RADS 3 - Probably benign finding(s) - 6 month follow-up suggested Ultrasound: BI-RADS 3 - Probably benign finding(s) - 6 month follow-up suggested RECOMMENDATION: 1 year F/U Results were provided to the patient at time of visit by the technologist. This patient's information was entered into a reminder system with a target due date for their next mammogram.
== END 2023-04-22 07:58 | disposition home or self-care (01) ==
LOC: HO.MAMMO 07:57
PROVIDERS: PCP Nurse Practitioner Family; Visit Provider Nurse Practitioner Family
DX: R92.8 Other abnormal and inconclusive findings on diagnostic imaging of breast (principal)
CPT/HCPCS: 76642; 77061; 77065

== ENCOUNTER → 2023-04-22 08:00 | Outpatient (BNV) | payer OTHER, SELFPAY | PROVIDERS: PCP Nurse Practitioner Family; Visit Provider Radiology Diagnostic Radiology | DX: N64.89 Other specified disorders of breast (principal) | CPT/HCPCS: 76642; 77061; 77065 ==

== ENCOUNTER → 2023-05-22 08:15 | Outpatient (BNVA) | payer OTHER, SELFPAY | PROVIDERS: PCP Nurse Practitioner Family; Visit Provider Nurse Practitioner ==

== ENCOUNTER 2023-05-22 08:17 | Outpatient (AMB) | payer OTHER, SELFPAY ==
--- NOTE | 2023-05-22 08:16 | MHC.OFFVIS ---
Intake Vital Signs 05/22/23 08:23 Height 5 ft 7 in Weight 178 lb 9.191 oz BMI 28.0 BP 119/71 Blood Pressure Location Lt brachial Position Sitting Pulse 102 H Intake Visit Reasons: s/p EGD Intake Note: Astrid presents in the office as a follow up EGD. CC: She states that she is not having any concerns since her EGD. Accessioner Required: No Allergies flagyl Allergy (Severe, Uncoded 05/22/23 08:24) Vomiting HPI s/p EGD HPI Details Assessment & Plan (1) Oropharyngeal dysphagia: Code(s): R13.12 - Dysphagia, oropharyngeal phase (2) GERD (gastroesophageal reflux disease): Code(s): K21.9 - Gastro-esophageal reflux disease without esophagitis (3) Chronic idiopathic constipation: Code(s): K59.04 - Chronic idiopathic constipation Plan Timeline to reassess: PRN EGD BIOPSY TODAY'S VISIT She continues with the dyphagia no change with famotidine. We review the swallowing studies and it does show a delay in the upper esophagus this really unexplained. I hope that may be was esophageal spasm but there has been no change with the famotidine. Linzess dose is likely too high as she will tend to have diarrheal movements after each meal when she takes the 290 micro g dose. Will drop to the 145 and continue to titrate to affect her side effect. I think we really need to get endoscopy to take a look and see if upper esophageal dilation is a possibility or this any other pathology. If we cannot uncover the problem we may need an ENT referral. Return office visit in 4-5 weeks to titrate the Linzess. Medications: New linaclotide (Linze ss) 145 mcg PO QAM 30 caps 3RF K59.04 - Chronic i diopathic constipa tion Discontinued linaclotide (Linze ss) Discontinue d Reason: Doctor' s Order 290 mcg PO QAM 30 days 30 caps 3RF K59.04 - Chronic i diopathic constipa tion EGD 04/18/23 Findings: Larynx:normal Esophagus: GE junction at 35 cm, diaphragm hiatus at 35 cm, some congestion and bogginess at GEJ, bx taken, dilated to 19 mm at UES and LES, no tears seen, bx also taken from distal and proximal esophagus Stomach: Patchy linear streaks of gastric erythema. Biopsies were obtained. Grade 2 flap valve on retroflexed examination of the cardia. Duodenum: Mild duodenitis , bx taken Intervention: Biopsies as noted above, balloon dilation Impression/Findings: esophagitis duodenitis gastritis PLAN: can consider PPI will probably help her sx significantly if she has ongoing sx can get GES and hough studies BIOPSY Received: 04/18/23 Diagnosis A. Duodenum, biopsy: Duodenal mucosa within normal limits; preserved villous architecture and no increased intraepithelial lymphocytes seen. B. Stomach, biopsy: Gastric antral mucosa within normal limits; negative for Helicobacter pylori, intestinal metaplasia and dysplasia. C. Gastroesophageal junction, biopsy: Squamous and columnar junctional mucosa with mild chronic inflammation; negative for intestinal metaplasia and dysplasia. D. Esophagus, distal, biopsy: Squamous mucosa within normal limits; negative for inflammation (including intraepithelial eosinophils), fungal organisms and intestinal metaplasia. E. Esophagus, proximal, biopsy: Squamous mucosa within normal limits; negative for inflammation (including intraepithelial eosinophils), fungal organisms and intestinal metaplasia TODAY'S VISIT She tolerated the procedure well. She initially had improvement in her swallowing then it seemed to quickly returned to her baseline. I explained her that sometimes we need serial dilations to keep things moving, also she is only taking famotidine and given that we did see some irritation I think moving her on to PPI is sensible. Will start her on pantoprazole since she was on omeprazole in the past and did not feel it was effective for her. She did received the Linzess at 290 micro g it gave her diarrhea and at 145 micro g she would have mix results some days having formed stools and some days having diarrhea. She does not want to have diarrhea of work so she has only been taking on the weekends. I think will try holding this and moving her to Amitiza since this has a lower dosing range and 8 mcg twice a day we can try to titrate this medication and see if it does better for her. It is obviously important to control the constipation in order to control heartburn as well. Return office visit in 6 weeks to evaluate the Amitiza and I will send a note to the schedulers to schedule a repeat endoscopy in 3 months in order to allow sufficient healing. 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 Review of Systems Const Denies fatigue, Denies fever(s), Denies night sweats, Denies poor appetite and Denies weight loss ENT Reports Normal hearing present, Denies dental pain, Reports dysphagia, Denies hearing loss, Denies mouth pain, Denies odynophagia, Denies throat swelling, Denies tongue swelling and Reports other (Dentition adequate) Card Reports no additional complaints Resp Reports no additional complaints GI Denies abdominal pain, Denies melena, Denies bloating, Denies hematochezia, Reports constipation, Denies GI cramping, Reports dysphagia, Denies excessive flatus, Denies early satiety, Denies heartburn, Denies diarrhea, Denies nausea, Denies odynophagia, Denies vomiting and Denies hematemesis Skin/Breast Denies pruritus, Denies lesions, Denies rash and Denies jaundice Neuro Reports Normal hearing present and Denies Abnormal speech present Endo Denies fatigue Aller/Immun Denies throat swelling and Denies tongue swelling Physical Exam Vital Signs: Last Vital Signs Pulse 102 H 05/22/23 08:23 BP 119/71 05/22/23 08:23 BMI result Body Mass Index 28.0 Const General: cooperative, no acute distress, well developed and well groomed Nutritional Appearance: average body habitus and well nourished Orientation/consciousness: oriented to person, oriented to place and oriented to time Limitations: No language barrier HEENT Head: Yes normocephalic and Yes atraumatic Eyes General: appearance normal, both eyes and all related structures Pupils: Equal, round and reactive pupils present Neck Neck: Yes normal visual inspection and Yes no lymphadenopathy Thyroid: Thyroid normal Resp Effort & Inspection: normal respiratory effort and able to speak in complete sentences Auscultation: clear to auscultation bilaterally Cardio Rate: regular rate Rhythm: regular rhythm Heart sounds: Normal, physiologic split S2 sound present Peripheral pulses: radial pulses present and posterior tibial pulses present GI Inspection: No distended and No Abdominal panniculus present Palpation (GI): Soft to palpation, nontender, no guarding, not rigid and No hepatosplenomegaly present Percussion: Yes normal to percussion Auscultation: normal bowel sounds Rectal Exam - Female: deferred Skin General skin exam: no rashes or lesions noted, turgor normal, skin not dry, no jaundice, No spider nevi and no striae Rashes: no rashes Nails: normal Neuro General: oriented to person, oriented to place and oriented to time Cranial nerves: Yes Equal, round and reactive pupils present and Yes Normal hearing present Speech: No Abnormal speech present Extrem General: Yes normal to inspection, No clubbing, No cyanosis and No edema Psych Appearance: grossly normal and well kempt Mental Status: mental status grossly normal Speech and movement: Normal speech and movement present Affect: normal affect Attitude: cooperative Thought process: Normal thought process present and not confabulating Thought content: Normal thought content present Insight: Fair insight present (Psych) Judgement: Fair judgement present (Psych) Results Reviewed Results Reviewed: EGD 04/18/23 Findings: Larynx:normal Esophagus: GE junction at 35 cm, diaphragm hiatus at 35 cm, some congestion and bogginess at GEJ, bx taken, dilated to 19 mm at UES and LES, no tears seen, bx also taken from distal and proximal esophagus Stomach: Patchy linear streaks of gastric erythema. Biopsies were obtained. Grade 2 flap valve on retroflexed examination of the cardia. Duodenum: Mild duodenitis , bx taken Intervention: Biopsies as noted above, balloon dilation Impression/Findings: esophagitis duodenitis gastritis PLAN: can consider PPI will probably help her sx significantly if she has ongoing sx can get GES and hough studies BIOPSY Received: 04/18/23 Diagnosis A. Duodenum, biopsy: Duodenal mucosa within normal limits; preserved villous architecture and no increased intraepithelial lymphocytes seen. B. Stomach, biopsy: Gastric antral mucosa within normal limits; negative for Helicobacter pylori, intestinal metaplasia and dysplasia. C. Gastroesophageal junction, biopsy: Squamous and columnar junctional mucosa with mild chronic inflammation; negative for intestinal metaplasia and dysplasia. D. Esophagus, distal, biopsy: Squamous mucosa within normal limits; negative for inflammation (including intraepithelial eosinophils), fungal organisms and intestinal metaplasia. E. Esophagus, proximal, biopsy: Squamous mucosa within normal limits; negative for inflammation (including intraepithelial eosinophils), fungal organisms and intestinal metaplasia Assessment & Plan Assessment & Plan (1) Oropharyngeal dysphagia: Code(s): R13.12 - Dysphagia, oropharyngeal phase (2) GERD (gastroesophageal reflux disease): Code(s): K21.9 - Gastro-esophageal reflux disease without esophagitis (3) Chronic idiopathic constipation: Code(s): K59.04 - Chronic idiopathic constipation Plan She tolerated the procedure well. She initially had improvement in her swallowing then it seemed to quickly returned to her baseline. I explained her that sometimes we need serial dilations to keep things moving, also she is only taking famotidine and given that we did see some irritation I think moving her on to PPI is sensible. Will start her on pantoprazole since she was on omeprazole in the past and did not feel it was effective for her. She did received the Linzess at 290 micro g it gave her diarrhea and at 145 micro g she would have mix results some days having formed stools and some days having diarrhea. She does not want to have diarrhea of work so she has only been taking on the weekends. I think will try holding this and moving her to Amitiza since this has a lower dosing range and 8 mcg twice a day we can try to titrate this medication and see if it does better for her. It is obviously important to control the constipation in order to control heartburn as well. Return office visit in 6 weeks to evaluate the Amitiza and I will send a note to the schedulers to schedule a repeat endoscopy in 3 months in order to allow sufficient healing. Return office visit in 6 weeks Medications: New pantoprazole (Protonix) 40 mg PO DAILY 30 days 30 tabs 6RF K21.9 - Gastro-esophageal reflux disease without esophagitis lubiprostone (Amitiza) 8 mcg PO BID 60 caps 6RF K59.04 - Chronic idiopathic constipation Refilled famotidine (Pepcid) 40 mg PO BEDTIME 30 tabs 3RF K21.9 - Gastro-esophageal reflux disease without esophagitis On Hold linaclotide (Linzess) Hold Comment: Doctor's Order 145 mcg PO QAM 30 caps 3RF K59.04 - Chronic idiopathic constipation Coding Level of Care Code Est Pt Level 4 (88664) Diagnoses Oropharyngeal dysphagia R13.12 GERD (gastroesophageal reflux disease) K21.9 Chronic idiopathic constipation K59.04
[2023-05-22 08:23] VITALS: BP 119/71; PULSE 102; BMI 28.0
== END 2023-05-22 09:02 | disposition home or self-care (01) ==
PROVIDERS: PCP Nurse Practitioner Family; Visit Provider Nurse Practitioner
DX: R13.12 Dysphagia, oropharyngeal phase (principal); K21.9 Gastro-esophageal reflux disease without esophagitis; K59.04 Chronic idiopathic constipation
CPT/HCPCS: 99214

== ENCOUNTER 2023-08-21 12:58 | Outpatient (REF) | payer OTHER, SELFPAY ==
[2023-08-21 13:41] LABS: MANUAL DIFF FLAG NO
[2023-08-21 13:44] LABS: Basophils Percent Auto 0.3 % (0-2); Eosinophils Percent Auto 0.7 % (0-4); Hematocrit 39.3 % (37.0-47.0); Hemoglobin 13.4 g/dl (12.0-16.0); Imm Gran Abs Auto 0.02 X10*3/uL (0.00-0.03); Imm Gran Pct Auto 0.3 % (0.0-0.4); Lymphocytes Absolute Auto 2.7 X10*3/uL (1.2-4.9); Lymphocytes Percent Auto 45.1 % (20-40); Mean Corpuscular HGB Conc 34.1 g/dl (31.0-35.0); Mean Corpuscular Hemoglobin 30.5 pg (27.0-33.0); Mean Corpuscular Volume 89.5 fL (80.0-98.0); Mean Platelet Volume 9.1 fL (9.4-12.3); Monocytes Absolute Auto 0.4 X10*3/uL (0.1-1.2); Monocytes Percent Auto 6.4 % (2-11); Neutrophils Absolute Auto 2.8 x10*3/uL (2.0-8.3); Neutrophils Percent Auto 47.2 % (45-73); Platelet Count 252 X10*3/uL (160-400); Red Blood Count 4.39 X10*6/uL (4.20-5.50); Red Cell Distribution Width 12.6 % (11.0-16.0)
[2023-08-21 14:00] LABS: Alanine Aminotransferase 10 U/L (0-31); Albumin Level 4.4 g/dL (3.5-5.0); Alkaline Phosphatase 106 U/L (39-117); Anion Gap 9 (12-20); Aspartate Amino Transferase 14 U/L (5-31); Bilirubin Total 0.3 mg/dL (0.0-1.0); Blood Urea Nitrogen 14 mg/dL (9-16); Calcium 9.6 mg/dL (8.4-10.2); Carbon Dioxide 26 mmol/L (22-29); Chloride 105 mmol/L (96-108); Estimated Glomerular Filt Rate > 60; Glucose Random 86 mg/dL (60-115); Potassium 4.4 mmol/L (3.3-5.1); Rheumatoid Factor < 13.0 IU/mL (<15.0); Sodium 136 mmol/L (135-145); Total Protein 7.9 g/dL (6.5-8.0)
[2023-08-21 14:19] LABS: Erythrocyte Sedimentation Rate 10 MM/HR (0-20)
[2023-08-21 16:02] LABS: Appearance Urine Cloudy; Color Urine Yellow; Glucose Urine UA Negative (Negative); Leukocyte Esterase Urine Negative (Negative); Nitrite Urine Negative (Negative); Specific Gravity - Urine >= 1.030 (1.005-1.025); UMIC TRIGGER UA YES; Urine Blood Large (3+) (Negative); Urine Ketones Negative (Negative); Urine Protein Negative (Neg-Trace)
[2023-08-21 16:10] LABS: Bacteria Urine 2+ (None Seen); Hyaline Casts Urine 0-2 /LPF (0-2); RBC Urine >20 /HPF (0-2); WBC Urine 0-5 /HPF (0-5)
[2023-08-22 13:43] LABS: Anti DNA DS Antibody <1 IU/mL; Antibody to SS-A Antigen <1.0 NEG AI (<1.0 NEG); Antibody to SS-B Antigen <1.0 NEG AI (<1.0 NEG); SM/Ribonucleoprotein Ab <1.0 NEG AI (<1.0 NEG); Smith Protein <1.0 NEG AI (<1.0 NEG)
[2023-08-24 09:23] LABS: Anti Nuclear Antibody Screen NEGATIVE (NEGATIVE)
[2023-08-25 20:54] LABS: Complement Total CH50 >60 U/mL (31-60)
[2023-08-26 07:13] LABS: Complement C3 143 mg/dL (83-193)
[2023-08-26 13:58] LABS: Histone Antibody <1.0 U (<1.0); Smooth Muscle Antibody <20 U (<20)
== END 2023-08-21 12:59 | disposition home or self-care (01) ==
LOC: HO.LAB 12:58
PROVIDERS: PCP Nurse Practitioner Family; Visit Provider Physician Assistant
DX: L93.2 Other local lupus erythematosus (principal)
CPT/HCPCS: 36415; 80053; 81001; 83516; 85025; 85652; 86015; 86038; 86160; 86162; 86225; 86235; 86431

== ENCOUNTER 2023-09-01 15:52 | Outpatient (REF) | payer OTHER, SELFPAY ==
[2023-09-01 16:08] LABS: MANUAL DIFF FLAG NO
[2023-09-01 16:57] LABS: Basophils Percent Auto 0.4 % (0-2); Eosinophils Absolute Auto 0.1 X10*3/uL (0.0-0.4); Eosinophils Percent Auto 0.7 % (0-4); Hematocrit 39.3 % (37.0-47.0); Imm Gran Abs Auto 0.03 X10*3/uL (0.00-0.03); Imm Gran Pct Auto 0.4 % (0.0-0.4); Lymphocytes Absolute Auto 2.9 X10*3/uL (1.2-4.9); Lymphocytes Percent Auto 42.2 % (20-40); Mean Corpuscular HGB Conc 33.1 g/dl (31.0-35.0); Mean Corpuscular Hemoglobin 30.2 pg (27.0-33.0); Mean Corpuscular Volume 91.4 fL (80.0-98.0); Mean Platelet Volume 9.3 fL (9.4-12.3); Monocytes Absolute Auto 0.5 X10*3/uL (0.1-1.2); Monocytes Percent Auto 6.7 % (2-11); Neutrophils Absolute Auto 3.4 x10*3/uL (2.0-8.3); Neutrophils Percent Auto 49.6 % (45-73); Platelet Count 313 X10*3/uL (160-400); Red Cell Distribution Width 12.8 % (11.0-16.0); White Blood Count 6.8 X10*3/uL (4.8-10.8)
[2023-09-01 18:02] LABS: Thyroid Stimulating Hormone 0.62 uIU/mL (0.32-4.0)
[2023-09-04 23:29] LABS: HPV mRNA E6/E7 Not Detected (Not Detected)
== END 2023-09-01 15:53 | disposition home or self-care (01) ==
LOC: HO.LAB 15:52
PROVIDERS: Visit Provider Advanced Practice Midwife
DX: Z12.4 Encounter for screening for malignant neoplasm of cervix (principal); Z11.51 Encounter for screening for human papillomavirus (HPV); N93.9 Abnormal uterine and vaginal bleeding, unspecified; N93.0 Postcoital and contact bleeding
CPT/HCPCS: 36415; 84443; 85025; 87491; 87591; 87624; 88142

== ENCOUNTER 2023-09-03 14:56 | Outpatient (REF) | payer OTHER, SELFPAY ==
[2023-09-03 16:43] LABS: CT PCR NOT DETECTED (Not Detect.); NG PCR NOT DETECTED (Not Detect.)
== END 2023-09-03 14:57 | disposition home or self-care (01) ==
LOC: HO.LNP 14:56
PROVIDERS: Visit Provider Advanced Practice Midwife
DX: N93.9 Abnormal uterine and vaginal bleeding, unspecified (principal); Z20.2 Contact with and (suspected) exposure to infections with a predominantly sexual mode of transmission
CPT/HCPCS: 0353U

== ENCOUNTER 2023-09-10 14:17 | Outpatient (REF) | payer OTHER, SELFPAY ==
--- NOTE | ~2023-09-10 | US_ITS ---
EXAMINATION: US PELVIS CLINICAL INFORMATION: Abnormal uterine bleeding, last menstrual period 3 weeks ago. COMPARISON: None available. TECHNIQUE: Ultrasound of the pelvis is performed using both transabdominal and transvaginal transducers along with Doppler. Transvaginal imaging is performed due to inadequate visualization transabdominally. FINDINGS: The uterus measures 7.2 x 3.1 x 4.6 cm and is anteverted. No significant free fluid. Right ovary measures 2.6 x 1.8 x 1.3 cm, volume 3.2 mL, and is unremarkable. Left ovary measures 3.2 x 2.3 x 2.5 cm, volume 9.6 mL. Left ovarian 1.6 cm cyst is anechoic with wall thickness of up to 3 mm. There is no specific indication for additional imaging at this time. Endometrial thickness of 5 mm. Small cystic area measuring approximately 5 mm within the endometrial cavity. US/US pelvic and transvaginal IMPRESSION: Endometrial thickness of 5 mm. Small cystic area measuring approximately 5 mm within the endometrial cavity. Correlation with clinical exam and possible gynecologic consultation recommended to determine further management. Recommend follow-up ultrasound in 6-8 weeks.
== END 2023-09-10 14:18 | disposition home or self-care (01) ==
LOC: HO.US 14:17
PROVIDERS: PCP Nurse Practitioner Family; Visit Provider Advanced Practice Midwife
DX: N93.9 Abnormal uterine and vaginal bleeding, unspecified (principal)
CPT/HCPCS: 76830; 76856

== ENCOUNTER 2023-10-24 10:00 | Emergency (ER) | payer OTHER, SELFPAY ==
--- NOTE | ~2023-10-24 | US_ITS ---
EXAMINATION: US OBSTETRICAL ULTRASOUND CLINICAL INFORMATION: Left-sided abdominal pain and elevated hCG, evaluate for ectopic . HCG level 2283 COMPARISON: 09/10/2023 LMP: 09/12/2023. Gestational age by maternal dates is 6 weeks 0 days. Estimated date of delivery by maternal dates is 06/18/2024. TECHNIQUE: Transabdominal and transvaginal evaluation FINDINGS: There is no intrauterine gestation. The uterus measured 9.8 x 4.3 x 7.2 cm. The endometrial stripe measured 0.9 cm. There is no intrauterine gestation or fluid. MATERNAL ADNEXA: The right maternal ovary measures 5.3 x 3.4 x 3.8 cm cm. There is 3.7 x 2.5 x 3.2 cm cyst The left maternal ovary measures 2.4 x 1.5 x 2 point cm. There is no significant maternal adnexal mass. No maternal pelvic ascites. US/US OB pelvic and transvaginal IMPRESSION: 1. No evidence of increased activity in or ectopic is homogeneous 0.9 cm endometrium. Cyst in the right ovary most likely corpus luteum cyst. Coronal follow-up is recommended based on hCG level and clinical history
[2023-10-24 10:13] VITALS: BP 157/90; PULSE 100; RESP 16; TEMP 36.5; O2SAT 100; BMI 30.9
[2023-10-24 10:36] LABS: MANUAL DIFF FLAG NO
[2023-10-24 10:43] LABS: Basophils Percent Auto 0.3 % (0-2); Eosinophils Percent Auto 0.6 % (0-4); Hematocrit 36.4 % (37.0-47.0); Hemoglobin 12.2 g/dl (12.0-16.0); Imm Gran Abs Auto 0.02 X10*3/uL (0.00-0.03); Imm Gran Pct Auto 0.3 % (0.0-0.4); Lymphocytes Absolute Auto 2.1 X10*3/uL (1.2-4.9); Mean Corpuscular HGB Conc 33.5 g/dl (31.0-35.0); Mean Corpuscular Hemoglobin 30.8 pg (27.0-33.0); Mean Corpuscular Volume 91.9 fL (80.0-98.0); Mean Platelet Volume 9.2 fL (9.4-12.3); Monocytes Absolute Auto 0.5 X10*3/uL (0.1-1.2); Monocytes Percent Auto 7.4 % (2-11); Neutrophils Absolute Auto 3.9 x10*3/uL (2.0-8.3); Neutrophils Percent Auto 59.4 % (45-73); Platelet Count 273 X10*3/uL (160-400); Red Blood Count 3.96 X10*6/uL (4.20-5.50); Red Cell Distribution Width 12.9 % (11.0-16.0); White Blood Count 6.5 X10*3/uL (4.8-10.8)
[2023-10-24 11:03] LABS: Alanine Aminotransferase 14 U/L (0-31); Albumin Level 4.1 g/dL (3.5-5.0); Alkaline Phosphatase 86 U/L (39-117); Anion Gap 12 (12-20); Aspartate Amino Transferase 16 U/L (5-31); Bilirubin Total 0.3 mg/dL (0.0-1.0); Blood Urea Nitrogen 10 mg/dL (9-16); Carbon Dioxide 25 mmol/L (22-29); Chloride 106 mmol/L (96-108); Creatinine Clr Calc Pharmacy 125.8; Estimated Glomerular Filt Rate > 60; Glucose Random 98 mg/dL (60-115); HCG Quantitative 2283 mIU/mL; Potassium 4.3 mmol/L (3.3-5.1); Sodium 139 mmol/L (135-145)
[2023-10-24 12:00] VITALS: BP 132/78; PULSE 98; TEMP 36.6; O2SAT 99
--- NOTE | 2023-10-24 13:26 | ED_ITS ---
HPI - General Adult General Chief complaint: Abdominal Pain Stated complaint: atopic ? Time Seen by Provider: 10/24/23 13:25 Source: patient, RN notes reviewed and old records reviewed Mode of arrival: ambulatory Limitations: no limitations History of Present Illness ED Provider: MIYA HIGGINS PA-C HPI narrative: 38 year old female, , hx significant for ADHD, OCD, asthma, GERD, depression, and anxiety presents to the ED today for evaluation of elevated hCG levels. Patient reports positive test at home. Her last menstrual period was 09/12/23 (approx 6-7 wks ). She is not currently on control. [facility] for as this was not planned. While there, we were unable to identify an intrauterine on ultrasound however her beta HCG levels were noted to be 2082. She does state that she took 1 dose nothing per stone by mouth yesterday. She did not take the 2nd dose today. Denies taking misoprostol vaginally afterwards. They advised that she come to the ED for further evaluation to rule out ectopic . At present, she reports 1/10 left sided pelvic pain. Denies vaginal bleeding, vaginal discharge, dysuria, hematuria, flank pain, abdominal pain, N/V. Related Data Home Medications ?Medication ?Instructions ?Recorded ?Confirmed dextroamphetamine-amphetamine 20 20 mg PO DAILY 02/05/23 09/02/23 mg tablet (Adderall) hydroxychloroquine 200 mg tablet 200 mg PO BID 02/05/23 09/02/23 lamotrigine 25 mg tablet 50 mg PO BID 02/05/23 09/02/23 levonorgestrel 0.15 mg-ethinyl 1 tab PO DAILY 02/05/23 09/02/23 estradiol 30 mcg tablets,3 mos pack(91) mupirocin 2 % topical ointment 1 appl topical BID-TID 04/08/23 04/18/23 clobetasol 0.05 % topical foam 1 appl topical DAILY 05/22/23 09/02/23 Previous Rx's ?Medication ?Instructions ?Recorded linaclotide 145 mcg capsule 145 mcg PO QAM #30 caps 04/08/23 (Linzess) famotidine 40 mg tablet (Pepcid) 40 mg PO BEDTIME #30 tabs 05/22/23 lubiprostone 8 mcg capsule 8 mcg PO BID #60 caps 05/22/23 (Amitiza) pantoprazole 40 mg tablet,delayed 40 mg PO DAILY 30 days #30 tabs 05/22/23 release (Protonix) Allergies Allergy/AdvReac Type Severity Reaction Status Date / Time metronidazole [From Flagyl] Allergy Severe Vomiting Verified 10/24/23 10:16 Review of Systems 2 Review of Systems: Constitutional: No fever, chills, fatigue, night sweats, weight changes ENT/Mouth: No ear pain, hearing loss, nasal congestion, sinus pain, rhinorrhea, sore throat Eyes: No eye pain, swelling, redness, vision changes, discharge Cardio: No chest pain, palpitations, COREA, orthopnea, peripheral edema Pulm: No SOB, cough, sputum, wheezing, dyspnea, hemoptysis GI: No nausea, vomiting, hematemesis, abdominal pain, diarrhea, constipation, hematochezia, melena : No irregular bleeding, dysuria, frequency, urgency, hesitancy, hematuria, flank pain, urinary flow changes, urinary incontinence or retention, +left pelvic pain MSK: No back pain, neck pain, joint pain, myalgias Skin: No lesions, rashes Neuro: No weakness, numbness, paresthesias, LOC, dizziness, headache Psych: No anxiety/panic, depression, SI/HI, AH/VH All other systems reviewed and are negative. [facility] Past Medical History Attestation statement: The following information was validated with the patient. Source: old records reviewed and nursing notes reviewed Medical History Anxiety and depression Fatty liver Discoid lupus ADHD (attention deficit hyperactivity disorder) OCD (obsessive compulsive disorder) Asthma GERD (gastroesophageal reflux disease) H/O LEEP (loop electrosurgical excision procedure) of cervix complicating History of nephrolithiasis Surgical History History of carpal tunnel surgery H/O esophagogastroduodenoscopy H/O colonoscopy S/P skin biopsy Family History Family History Sister Colon cancer Paternal Grandfather Colon cancer Social History Social History Household Members: Family Alcohol intake: never Comment: all counts correct Patient Tobacco Use Status: Former Tobacco user Second Hand Smoke Exposure: No 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 Physical Exam ED Vital Signs: Vital Signs - 24 hr 10/24/23 10:13 10/24/23 12:00 10/24/23 14:00 Temperature 97.7 F 97.8 F 96.4 F L Pulse Rate 100 98 91 Respiratory Rate 16 Blood Pressure 157/90 H 132/78 133/88 Pulse Oximetry 100 99 100 Oxygen Delivery Method Room Air Room Air Room Air 10/24/23 16:00 10/24/23 17:45 Temperature 98.0 F 98.0 F Pulse Rate 97 97 Respiratory Rate 16 Blood Pressure 130/80 130/80 Pulse Oximetry 99 99 Oxygen Delivery Method Room Air Room Air BMI result Body Mass Index 30.9 Vital signs stable Const General: cooperative, healthy appearing, comfortable and no acute distress Orientation/consciousness: patient oriented x3 Limitations: no limitations HENMT Head: Yes normal to inspection, Yes No palpable skull fracture present, Yes normocephalic and Yes atraumatic Eyes General: appearance normal, both eyes and all related structures Conjunctivae: conjunctivae normal Sclerae: sclerae normal Pupils: Equal, round and reactive pupils present Neck Neck: Yes normal visual inspection, Yes full ROM and Yes no lymphadenopathy Resp Effort & Inspection: normal respiratory effort and able to speak in complete sentences Auscultation: clear to auscultation bilaterally Cardio Rate: regular rate Rhythm: regular rhythm GI Other: Abdomen soft, nondistended, nontender to palpation, no rebound tenderness or guarding. Normoactive bowel sounds x4. Inspection: Yes normal to inspection Other: Patient opted to not have hinging machine operator in room during examination. External genitalia is normal in appearance without lesions, swelling, masses or tenderness. Vaginal canal is pink and moist with minimal amount of curd-like discharge. Cervix is non-tender without lesions or erosions. Cervical os is closed without blood. Uterus is anteflexed, non-tender and normal in size. Ovaries are non-tender without palpable masses or enlargement. No cervical motion tenderness on bimanual exam. General: Yes no CVA tenderness Back/Spine/Pelvis Other: No midline spinous tenderness or step off deformity. No paraspinal muscle tenderness. Back: no CVA tenderness Skin General skin exam: no rashes or lesions noted Neuro General: patient oriented x3 Cranial nerves: Yes Equal, round and reactive pupils present Extrem General: Yes normal to inspection Course Course Course Narrative: 1531-- CBC without leukocytosis or left shift. No anemia. H&H 12.2/36.4. No concern for acute blood loss. Chemistry without acute electrolyte abnormality requiring intervention. Quantitative beta HCG noted to be 2283. Blood type AB- positive. Urine is negative for infection or blood. Pelvic ultrasound showing 3.7 x 2.5 x 3.2 cm cyst on the right ovary. There is no evidence of intrauterine or ectopic . I performed a speculum and bimanual exam which revealed minimal amount of curd-like discharge within the vaginal canal. The oz is closed. No blood noted coming from the eyes or within the vaginal canal. No clots. No CMT on bimanual exam. No palpable adnexal masses. Patient opted to not have hinging machine operator in room for exam. > given elevated beta HCG with unremarkable workup, case discussed with Dr. Arriaga (OBGYN) who will be coming to the ED to evaluate patient 1704-- Dr. Arriaga at bedside to evaluate patient. During evaluation, he presented patient with 3 different treatment options. The 1st option was expectant management with repeat beta HCG and repeat ultrasound in 48 hours along with strict return precautions. The 2nd is treatment with methotrexate. The 3rd option is D&C. Patient has opted for expectant management. She has discussed with both Dr. Arriaga and I returning to the ED in 48 hours for repeat HCG and ultrasound. She was advised return to the ED if she experiences increasing abdominal or pelvic pain, fevers, vaginal bleeding or clotting within the next 48 hours. She verbalizes understanding of plan. Patient has remained stable throughout ED visit today. Discussed worrisome signs and symptoms and when to return to the ED. All questions answered at this time. Patient is agreeable with disposition and stable for discharge. Medical Decision Making Medical Decision Making MDM Narrative: 38 year old female, , hx significant for ADHD, OCD, asthma, GERD, depression, and anxiety presents to the ED today for evaluation of elevated hCG levels. Patient initially hypertensive, vitals otherwise WNL. On exam, she is nontoxic-appearing and in no acute distress. Abdomen is soft, nondistended, nontender to palpation no rebound tenderness or guarding no CVAT bilaterally. On pelvic exam, External genitalia is normal in appearance without lesions, swelling, masses or tenderness. Vaginal canal is pink and moist with minimal amount of curd-like discharge. Cervix is non-tender without lesions or erosions. Cervical os is closed without blood. Uterus is anteflexed, non-tender and normal in size. Ovaries are non-tender without palpable masses or enlargement. No cervical motion tenderness on bimanual exam. Differential diagnosis includes ovarian cyst, intrauterine , ectopic . Unlikely UTI, sexually transmitted infection, pyelo, nephrolithiasis, renal colic, ovarian torsion. Plan for labs, pelvic US, and re-evaluation. Differential Diagnosis Differential Diagnoses: The differential diagnosis associated with the presentation includes as above. Admission/Observation Consideration of admission/observation: Escalation of care including admission/observation considered Admission considered on presentation. Consult Healthcare Provider Management of the patient was discussed with: Ergonomist (Dr. Arriaga) Lab Data MDM Lab Attestation statement: I reviewed the patient's lab results. as above. 10/24/23 10:30 10/24/23 10:30 Labs: Lab Results 10/24/23 10/24/23 10/24/23 Range/Units 10:30 15:15 16:22 WBC 6.5 (4.8-10.8) X10*3/uL RBC 3.96 L (4.20-5.50) X10*6/uL Hgb 12.2 (12.0-16.0) g/dl Hct 36.4 L (37.0-47.0) % MCV 91.9 (80.0-98.0) fL MCH 30.8 (27.0-33.0) pg MCHC 33.5 (31.0-35.0) g/dl RDW 12.9 (11.0-16.0) % Plt Count 273 (160-400) X10*3/uL MPV 9.2 L (9.4-12.3) fL Immature Gran % (Auto) 0.3 (0.0-0.4) % Neut % (Auto) 59.4 (45-73) % Lymph % (Auto) 32.0 (20-40) % [place] % (Auto) 7.4 (2-11) % Eos % (Auto) 0.6 (0-4) % Baso % (Auto) 0.3 (0-2) % Lymph # (Auto) 2.1 (1.2-4.9) X10*3/uL [place] # (Auto) 0.5 (0.1-1.2) X10*3/uL Eos # (Auto) 0.0 (0.0-0.4) X10*3/uL Baso # (Auto) 0.0 (0.0-0.2) X10*3/uL Abs Immat Gran (auto) 0.02 (0.00-0.03) X10*3/uL Absolute Neuts (auto) 3.9 (2.0-8.3) x10*3/uL Absolute Nucleated RBC 0.000 (0.0-0.012) X10*3/uL Nucleated RBC % (auto) 0.0 (0.0-0.2) /100WBC Sodium 139 (135-145) mmol/L Potassium 4.3 (3.3-5.1) mmol/L Chloride 106 (96-108) mmol/L Carbon Dioxide 25 (22-29) mmol/L Anion Gap 12 (12-20) BUN 10 (9-16) mg/dL Creatinine 0.71 (0.5-1.4) mg/dL Estim Creat Clear Calc 125.8 Estimated GFR > 60 Random Glucose 98 (60-115) mg/dL Calcium 9.0 D (8.4-10.2) mg/dL Total Bilirubin 0.3 (0.0-1.0) mg/dL AST 16 (5-31) U/L ALT 14 (0-31) U/L Alkaline Phosphatase 86 (39-117) U/L Total Protein 7.0 (6.5-8.0) g/dL Albumin 4.1 (3.5-5.0) g/dL Beta HCG, Quant 2283 mIU/mL Urine Color Yellow Urine Appearance Clear Urine pH 5.5 (5.0-9.0) Ur Specific [place] 1.025 (1.005-1.025) Urine Protein Negative (Neg-Trace) mg/dL Urine Glucose (UA) Negative (Negative) mg/dL Urine Ketones 15 (Negative) mg/dL Urine Blood Negative (Negative) Urine Nitrite Negative (Negative) Ur Leukocyte Esterase Negative (Negative) Chlam trachomat DNA PCR NOT DETECTED (Not Detect.) N.gonorrhoeae DNA (PCR) NOT DETECTED (Not Detect.) T. vaginalis (PCR) NOT DETECTED (Not Detect) Bact Vaginosis (PCR) NEGATIVE (Negative) C. krusei/glabrata (PCR) NOT DETECTED (Not Detect) Lolis group (PCR) NOT DETECTED (Not Detect) Blood Type AB Positive Independent Interpretation I performed an independent interpretation of an: Ultrasound Interpretation: Pelvic transvaginal US 10/24/23 showing right ovarian cyst, agree with radiologist's interpretation. Pelvic transvaginal US 09/10/23 showing left ovarian cyst, agree with radiologist's interpretation. Radiology Impression Discussion of test interpretation with radiology: I have reviewed the radiologist's reading. Radiologist Impression: EXAMINATION: US PELVIS CLINICAL INFORMATION: Abnormal uterine bleeding, last menstrual period 3 weeks ago. COMPARISON: None available. TECHNIQUE: Ultrasound of the pelvis is performed using both transabdominal and transvaginal transducers along with Doppler. Transvaginal imaging is performed due to inadequate visualization transabdominally. FINDINGS: The uterus measures 7.2 x 3.1 x 4.6 cm and is anteverted. No significant free fluid. Right ovary measures 2.6 x 1.8 x 1.3 cm, volume 3.2 mL, and is unremarkable. Left ovary measures 3.2 x 2.3 x 2.5 cm, volume 9.6 mL. Left ovarian 1.6 cm cyst is anechoic with wall thickness of up to 3 mm. There is no specific indication for additional imaging at this time. Endometrial thickness of 5 mm. Small cystic area measuring approximately 5 mm within the endometrial cavity. US/US pelvic and transvaginal IMPRESSION: Endometrial thickness of 5 mm. Small cystic area measuring approximately 5 mm within the endometrial cavity. Correlation with clinical exam and possible gynecologic consultation recommended to determine further management. Recommend follow-up ultrasound in 6-8 weeks. EXAMINATION: US OBSTETRICAL ULTRASOUND CLINICAL INFORMATION: Left-sided abdominal pain and elevated hCG, evaluate for ectopic . HCG level 2283 COMPARISON: 09/10/2023 LMP: 09/12/2023. Gestational age by maternal dates is 6 weeks 0 days. Estimated date of delivery by maternal dates is 06/18/2024. TECHNIQUE: Transabdominal and transvaginal evaluation FINDINGS: There is no intrauterine gestation. The uterus measured 9.8 x 4.3 x 7.2 cm. The endometrial stripe measured 0.9 cm. There is no intrauterine gestation or fluid. MATERNAL ADNEXA: The right maternal ovary measures 5.3 x 3.4 x 3.8 cm cm. There is 3.7 x 2.5 x 3.2 cm cyst The left maternal ovary measures 2.4 x 1.5 x 2 point cm. There is no significant maternal adnexal mass. No maternal pelvic ascites. US/US OB pelvic and transvaginal IMPRESSION: 1. No evidence of increased activity in or ectopic is homogeneous 0.9 cm endometrium. Cyst in the right ovary most likely corpus luteum cyst. Coronal follow-up is recommended based on hCG level and clinical history External Record Review External record reviewed: Inpatient record, Office record, Outpatient record, Prior outpatient labs, Prior outpatient radiology, Primary care record and Outside ED record Social Determinants Patient?s care significantly limited by Social Determinants of Health including: Other Social Determinant of Health Critical Care Time Critical Care Time Critical Care Time: No Discharge Plan Discharge Clinical Impression: Elevated serum hCG, Cyst of right ovary Patient Disposition: Home, Self-Care Instructions: Ectopic (DC), (ED) Additional Instructions: You were evaluated in the ED today for elevated hormone. Your hCG levels were noted to be 2283 today. Your labs are otherwise normal. You tested negative for BV, Trichomonas and Lolis. Chlamydia and gonorrhea still pending. Your pelvic ultrasound not demonstrate intrauterine or ectopic . Ultrasound does show a small cyst within the right ovary. You were evaluated by Dr. Arriaga (OBGYN) today and have decided on expectant management. Return to the ED in 48 hours for repeat beta hCG levels and repeat ultrasound.. As discussed, come to the ED early around 6:00 a.m. on 10/26/[address] Arriaga can evaluate you. Return with new or worsening symptoms such as increasing abdominal or pelvic pain, vaginal bleeding, vaginal clotting, fevers. In the case of an emergency call 911. Prescriptions: No Action mupirocin 2 % ointment 1 appl topical BID-TID Linzess 145 mcg capsule 145 mcg PO QAM Qty: 30 3RF Hold Instructions: Doctor's Order clobetasol 0.05 % foam 1 appl topical DAILY pantoprazole [Protonix] 40 mg tablet,delayed release (DR/EC) 40 mg PO DAILY 30 Days Qty: 30 6RF lubiprostone [Amitiza] 8 mcg capsule 8 mcg PO BID Qty: 60 6RF famotidine [Pepcid] 40 mg tablet 40 mg PO BEDTIME Qty: 30 3RF lamotrigine 25 mg tablet 50 mg PO BID levonorgestrel-ethinyl estrad 0.15 mg-30 mcg (91) tablets,dose pack,3 month 1 tab PO DAILY hydroxychloroquine 200 mg tablet 200 mg PO BID dextroamphetamine-amphetamine [Adderall] 20 mg tablet 20 mg PO DAILY Referrals: Guanakito Arriaga MD [Physician] - Stand Alone Forms: Work/School Release Interventions: ED Discharge Assessment Last Done: 10/24/23 17:45 Discharge Date/Time: 10/24/23 17:45 Print Language: [place]
[2023-10-24 14:00] VITALS: BP 133/88; PULSE 91; TEMP 35.8; O2SAT 100
--- NOTE | 2023-10-24 15:46 | P.CONOB_ITS ---
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 The patient had a positive test at home. [facility] According to the patient an ultrasound did not identify an intrauterine , beta HCG levels were noted to be 2082. The patient was given a dose of mifepristone p.o. which she took yesterday and was advised to come to the emergency room to rule out ectopic . The patient is not complaining any pelvic pain or discomfort Denies vaginal bleeding, vaginal discharge or any other concerns. Today in the emergency room hCG is 2283, blood type AB-positive cc:: CC: OB [facility] Past Medical History Medical History Anxiety and depression Fatty liver Discoid lupus ADHD (attention deficit hyperactivity disorder) OCD (obsessive compulsive disorder) Asthma GERD (gastroesophageal reflux disease) H/O LEEP (loop electrosurgical excision procedure) of cervix complicating History of nephrolithiasis Family History Family History Sister Colon cancer Paternal Grandfather Colon cancer Surgical History Surgical History History of carpal tunnel surgery H/O esophagogastroduodenoscopy H/O colonoscopy S/P skin biopsy Social History Social History Household Members: Family Alcohol intake: never Comment: all counts correct Patient Tobacco Use Status: Former Tobacco user Second Hand Smoke Exposure: No Advance Directives: No Advance Directives Information Provided: No 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 Allergies Allergy/AdvReac Type Severity Reaction Status Date / Time metronidazole [From Flagyl] Allergy Severe Vomiting Verified 10/24/23 10:16 Home Medications ?Medication ?Instructions ?Recorded ?Confirmed ?Last Taken ?Type dextroamphetamine-amphetamine 20 20 mg PO DAILY 02/05/23 09/02/23 04/18/23 History mg tablet (Adderall) hydroxychloroquine 200 mg tablet 200 mg PO BID 02/05/23 09/02/23 Unknown History lamotrigine 25 mg tablet 50 mg PO BID 02/05/23 09/02/23 04/18/23 History levonorgestrel 0.15 mg-ethinyl 1 tab PO DAILY 02/05/23 09/02/23 Unknown History estradiol 30 mcg tablets,3 mos pack(91) mupirocin 2 % topical ointment 1 appl topical BID-TID 04/08/23 04/18/23 Unknown History clobetasol 0.05 % topical foam 1 appl topical DAILY 05/22/23 09/02/23 Unknown History 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 Physical Exam Vitals Vital signs: Temp Pulse Resp BP Pulse Ox O2 Del Method 96.4 F L 91 16 133/88 100 Room Air 10/24/23 14:00 10/24/23 14:00 10/24/23 10:13 10/24/23 14:00 10/24/23 14:00 10/24/23 14:00 BMI result Body Mass Index 30.9 Abdomen Auscultation/Inspection/Palpation: Soft, Non-distended and No tenderness Female Genitalia (Pelvic) Bladder/Urethra: Normal meatus Vulva: No lesions Vagina: Nontender Cervix: Grossly normal and No cervical motion tenderness Uterus: Normal size and Nontender Adnexa/Parametria: Adnexal Tenderness: None, Adnexal Mass: None and Parametrial Tenderness: None 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 - Results Labs 10/24/23 10:30 10/24/23 10:30 Labs: Short CBC 10/24/23 Range/Units 10:30 WBC 6.5 (4.8-10.8) X10*3/uL Hgb 12.2 (12.0-16.0) g/dl Hct 36.4 L (37.0-47.0) % Plt Count 273 (160-400) X10*3/uL BMP 10/24/23 10:30 Sodium 139 Potassium 4.3 Chloride 106 Carbon Dioxide 25 BUN 10 Creatinine 0.71 Calcium 9.0 D Liver Function 10/24/23 Range/Units 10:30 Total Bilirubin 0.3 (0.0-1.0) mg/dL AST 16 (5-31) U/L ALT 14 (0-31) U/L Alkaline Phosphatase 86 (39-117) U/L Albumin 4.1 (3.5-5.0) g/dL Imaging US - abdomen: Radiologist's impression: ITS Impressions Pelvic/Transvag US 10/24/23 11:47 IMPRESSION: 1. No evidence of increased activity in or ectopic is homogeneous 0.9 cm endometrium. Cyst in the right ovary most likely corpus luteum cyst. Coronal follow-up is recommended based on hCG level and clinical history Assessment and Plan (1) Early stage of : Status: Acute Discussed with the patient the findings on ultrasound with no evidence of intrauterine , also discussed the patient the level of hCG. The differential diagnosis discussed with the patient included either early ectopic versus early intrauterine in 48 hours . Options of treatment were discussed with the patient includin- Expected management for the coming 48 hours and repeat HCG, pelvic ultrasound and re-evaluation in the emergency room. 2- Treat today as if she has tubal with methotrexate or 3- Uterine aspiration. All the pros and cons and risks and benefits of each treatment approach were discussed with the patient. 1-The advantage of expectant management were discussed with the patient, including but not limited to: prevention of possible exposure to teratogenicity or risk of spontaneous in case of an early normal , the risk being delayed diagnosis and treatment of ectopic and possible rupture with all its possible consequences including intra-abdominal bleed and possible . 2- Explained to the patient that the use of curettage as a diagnostic tool is limited by the potential for disruption of a viable . In addition, discussed with the patient that the sensitivity of curettage in finding chorionic villi is only 70 percent. [place]elle endometrial biopsy is even less sensitive than curettage for detection of villi; sensitivities reported is between 30 and 60 percent. If curettage is performed, serum HCG levels can be followed postcurettage if histopathology does not confirm the clinical impression. When an IUP has been evacuated, hCG levels should drop by at least 15 percent the day after evacuation. There might be an advantage of performing aspiration only on patients with both an HCG concentration below the discriminatory zone and a low doubling rate, since 30 percent of these patients have a nonviable intrauterine gestation, and the remainder have an ectopic . Knowing the results of aspiration avoids unnecessary methotrexate treatment of the 30 percent of patients without ectopic . 3-Furthermore discussed with the patient the 3rd option which is treatment with methotrexate without uterine aspiration. The advantage of early treatment of presumed tubal with methotrexate was discussed with the patient, including but not limited to reducing the risk of ruptured ectopic with all its potential consequences, in addition discussed with the patient methotrexate treatment risks including but not limited to, possible exposure to methotrexate to a normal intra and and increase the risk of spontaneous and congenital anomalies. The patient decided to wait 48 hours and come back to emergency room for evaluation, repeat ultrasound and HCG and treat accordingly. Explained to the patient to the importance of compliance and timely evaluation/ultrasound/repeat HCG follow-up in 48 hours for an early and accurate diagnosis, otherwise any delay in the diagnosis might cause delay in the treatment and might have negative consequences on her health and well-being including but not limited to intra-abdominal bleeding, ruptured ectopic and . Instructions given the patient to call or go to the emergency room if pain or vaginal bleeding occurs, all questions answered, the patient verbalized understanding and agreed with the plan. Follow-up in 48 hours in the emergency room at 06:00 for re-evaluation, hCG and ultrasound and for further management.
[2023-10-24 16:00] VITALS: BP 130/80; PULSE 97; TEMP 36.7; O2SAT 99
[2023-10-24 16:30] LABS: Appearance Urine Clear; Color Urine Yellow; Glucose Urine UA Negative (Negative); Leukocyte Esterase Urine Negative (Negative); Nitrite Urine Negative (Negative); PH 5.5 (5.0-9.0); Specific Gravity - Urine 1.025 (1.005-1.025); Urine Blood Negative (Negative); Urine Ketones 15 mg/dL (Negative); Urine Protein Negative (Neg-Trace)
[2023-10-24 16:30] LABS: Bacterial Vaginosis PCR NEGATIVE (Negative); Candida Group PCR NOT DETECTED (Not Detect); Candida glab krusei PCR NOT DETECTED (Not Detect); Trichomonas vaginalis PCR NOT DETECTED (Not Detect)
[2023-10-24 17:00] LABS: CT PCR NOT DETECTED (Not Detect.); NG PCR NOT DETECTED (Not Detect.)
[2023-10-24 17:45] VITALS: BP 130/80; PULSE 97; RESP 16; TEMP 36.7; O2SAT 99
== END 2023-10-24 17:45 | disposition home or self-care (01) ==
PROVIDERS: Physician Assistant Medical; Emergency Provider Emergency Medicine Emergency Medical Services; PCP Nurse Practitioner Family
DX: N83.201 Unspecified ovarian cyst, right side (principal); R10.2 Pelvic and perineal pain; Z79.899 Other long term (current) drug therapy; Z87.891 Personal history of nicotine dependence
CPT/HCPCS: 0352U; 0353U; 36415; 76801; 76817; 80053; 81003; 84702; 85025; 86900; 86901; 99283; 99284

== ENCOUNTER → 2023-10-24 13:47 | Outpatient (BNV) | payer OTHER, SELFPAY | PROVIDERS: Emergency Provider Emergency Medicine Emergency Medical Services; PCP Nurse Practitioner Family; Visit Provider Obstetrics & Gynecology | DX: Z34.90 Encounter for supervision of normal pregnancy, unspecified, unspecified trimester (principal) | CPT/HCPCS: 99283 ==

== ENCOUNTER 2023-10-26 06:08 | Emergency (ER) | payer OTHER, SELFPAY ==
--- NOTE | ~2023-10-26 | US_ITS ---
EXAMINATION: US OBSTETRICAL ULTRASOUND CLINICAL INFORMATION: Left-sided abdominal pain and elevated hCG level COMPARISON: 10/24/2023 and 09/10/2023 LMP: 09/12/2023. Gestational age by maternal dates is 6 weeks 2 days. Estimated date of delivery by maternal dates is 06/18/2023. TECHNIQUE: Transabdominal and transvaginal FINDINGS: There is no obvious intrauterine gestation seen, neither gestational sac, nor pole are identified. Endometrium is thickened, heterogeneous with trace of fluid in endometrial cavity and small amount of free fluid in cul-de-sac. The endometrial measured approximately 0.6 cm with trace of fluid between layers. Uterus measured 9.1 x 3.5 x 5.5 cm Right ovary measured 4.9 x 3.6 x 3.8 cm with 3.6 x 2.5 x 2.3 cm cyst and small amount of free fluid. The right adnexa. Left ovary visualized transabdominally only, measured 2.4 x 1.2 x 1.1 cm. There is normal vascular flow. There is possible mild pelvic congestion. US/US OB <= 14 weeks fetus IMPRESSION: No evidence of ectopic or intrauterine gestation. Trace of fluid in endometrial canal and small amount of fluid in cul-de-sac. Left ovarian cyst.
[2023-10-26 06:11] VITALS: BP 133/79; PULSE 110; RESP 18; TEMP 36.8; O2SAT 100; BMI 30.6
[2023-10-26 06:35] LABS: MANUAL DIFF FLAG NO
[2023-10-26 06:36] LABS: Basophils Percent Auto 0.3 % (0-2); Eosinophils Absolute Auto 0.1 X10*3/uL (0.0-0.4); Hematocrit 35.9 % (37.0-47.0); Hemoglobin 12.3 g/dl (12.0-16.0); Imm Gran Abs Auto 0.03 X10*3/uL (0.00-0.03); Imm Gran Pct Auto 0.5 % (0.0-0.4); Lymphocytes Absolute Auto 2.5 X10*3/uL (1.2-4.9); Lymphocytes Percent Auto 40.3 % (20-40); Mean Corpuscular HGB Conc 34.3 g/dl (31.0-35.0); Mean Corpuscular Hemoglobin 31.5 pg (27.0-33.0); Mean Corpuscular Volume 92.1 fL (80.0-98.0); Mean Platelet Volume 9.1 fL (9.4-12.3); Monocytes Absolute Auto 0.6 X10*3/uL (0.1-1.2); Monocytes Percent Auto 9.3 % (2-11); Neutrophils Absolute Auto 3.1 x10*3/uL (2.0-8.3); Neutrophils Percent Auto 48.6 % (45-73); Platelet Count 262 X10*3/uL (160-400); White Blood Count 6.3 X10*3/uL (4.8-10.8)
--- NOTE | 2023-10-26 06:41 | ED.GENADULT ---
HPI - General Adult General Chief complaint: General Medical Stated complaint: follow up from Friday Time Seen by Provider: 10/26/23 06:19 Source: patient Mode of arrival: ambulatory Limitations: no limitations History of Present Illness ED Provider: Cari Abdi NP HPI narrative: Patient is a 38-year-old female with history significant for ADHD, OCD, asthma, GERD, depression, and anxiety presenting to the ED for follow up of LLQ abdominal pain and elevated HCG level. LMP was 09/12/23, had positive test at home, and [facility] medically induced as was unplanned. No IUP noted on ultrasound there, HCG was 2082. She did take one dose of mifepristone on 10/22. Patient then seen in this ED on 10/23 and was evaluated by Dr. Arriaga. HCG here at that time was 2283 and U/S showed only . Blood type AB+. She was presented with options of returning for repeat HCG and U/S, treatment with methotrexate, or D&C. She opted to return in 48 hours for repeat evaluation of IUP versus ectopic. She reports ongoing mild, colicky LLQ pain. Denies fevers. Denies vaginal bleeding or other discharge. Denies nausea, vomiting, diarrhea, constipation. MD complaint: abdominal pain Onset (ago): day(s) Location: abdomen Severity: mild Pain Consistency: colicky Associated symptoms: denies other symptoms Treatments prior to arrival: other Related Data Home Medications ?Medication ?Instructions ?Recorded ?Confirmed dextroamphetamine-amphetamine 20 20 mg PO DAILY 02/05/23 09/02/23 mg tablet (Adderall) hydroxychloroquine 200 mg tablet 200 mg PO BID 02/05/23 09/02/23 lamotrigine 25 mg tablet 50 mg PO BID 02/05/23 09/02/23 levonorgestrel 0.15 mg-ethinyl 1 tab PO DAILY 02/05/23 09/02/23 estradiol 30 mcg tablets,3 mos pack(91) mupirocin 2 % topical ointment 1 appl topical BID-TID 04/08/23 04/18/23 clobetasol 0.05 % topical foam 1 appl topical DAILY 05/22/23 09/02/23 Previous Rx's ?Medication ?Instructions ?Recorded linaclotide 145 mcg capsule 145 mcg PO QAM #30 caps 04/08/23 (Linzess) famotidine 40 mg tablet (Pepcid) 40 mg PO BEDTIME #30 tabs 05/22/23 lubiprostone 8 mcg capsule 8 mcg PO BID #60 caps 05/22/23 (Amitiza) pantoprazole 40 mg tablet,delayed 40 mg PO DAILY 30 days #30 tabs 05/22/23 release (Protonix) Allergies Allergy/AdvReac Type Severity Reaction Status Date / Time metronidazole [From Flagyl] Allergy Severe Vomiting Verified 10/26/23 06:14 Review of Systems Review of Systems: As per HPI. Yes all other systems are reviewed and are negative Constitutional: Constitutional: Reports as per HPI [facility] Past Medical History Medical History Anxiety and depression Fatty liver Discoid lupus ADHD (attention deficit hyperactivity disorder) OCD (obsessive compulsive disorder) Asthma GERD (gastroesophageal reflux disease) H/O LEEP (loop electrosurgical excision procedure) of cervix complicating History of nephrolithiasis Surgical History History of carpal tunnel surgery H/O esophagogastroduodenoscopy H/O colonoscopy S/P skin biopsy Family History Family History Sister Colon cancer Paternal Grandfather Colon cancer Social History Social History Household Members: Family Alcohol intake: never Comment: all counts correct Patient Tobacco Use Status: Former Tobacco user Second Hand Smoke Exposure: No Advance Directives: No Advance Directives Information Provided: No 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 Blood pressure normal. Heart rate slightly tachycardic. Respiratory rate normal. Temperature normal. Oxygen saturation normal. Const General: cooperative, healthy appearing and no acute distress Orientation/consciousness: oriented to person, oriented to place, oriented to time and patient oriented x3 Limitations: no limitations HENMT Head: Yes normocephalic and Yes atraumatic Ears: external ears normal General nose exam: Normal external nose present Face and sinus: Yes face symmetric Mouth: oropharynx normal and moist mucous membranes Throat: Yes uvula midline Eyes Pupils: Equal, round and reactive pupils present Neck Neck: Yes normal visual inspection and Yes supple Resp Effort & Inspection: normal respiratory effort and able to speak in complete sentences Auscultation: clear to auscultation bilaterally Cardio Rate: regular rate Rhythm: regular rhythm Heart sounds: S1 normal heart sound present and S2 normal heart sound present GI Palpation (GI): Soft to palpation, Tenderness to palpation present (GI) in the LLQ (mild), no guarding and No Rebound tenderness present Auscultation: normoactive bowel sounds General: Yes no CVA tenderness Back/Spine/Pelvis Back: no CVA tenderness Skin General skin exam: elasticity normal and turgor normal Neuro General: oriented to person, oriented to place, oriented to time, patient oriented x3, moves all extremities, no focal motor deficits and CN's II-XI intact bilaterally Cranial nerves: Yes Equal, round and reactive pupils present Cognition (Neuro): normal cognition Extrem General: Yes full ROM, Yes no pedal edema and Yes no calf tenderness Psych Mental Status: mental status grossly normal Affect: normal affect Thought process: Normal thought process present Medications Administered Discontinued Medications Generic Name Dose Route Start Last Admin Trade Name Freq PRN Reason Stop Dose Admin Methotrexate 103 mg/ IV 4.12 mls @ 0 mls/hr 10/26/23 12:15 10/26/23 12:51 Miscellaneous Supplies IM 10/26/23 12:16 4.12 mls/hr ONCE ONE Administration As Directed Medical Decision Making Medical Decision Making MDM Narrative: Patient is a 38-year-old female with history significant for ADHD, OCD, asthma, GERD, depression, and anxiety presenting to the ED for follow up of LLQ abdominal pain and elevated HCG level. On exam patient is awake, A+Ox3, slightly tachycardic, VS otherwise WNL, afebrile, normal neurological exam without focal deficits, physical exam findings as above. Given reported symptoms and physical exam findings, initial differential includes ectopic versus intrauterine . Labs notable for hcg of 4182. Ultrasound notable for no evidence of intrauterine or ectopic , left ovarian cyst noted. My interpretation is in agreement with the radiologist's interpretation. Dr. Arriaga evaluated patient in the ED and discussed results and plan with patient. He offered options of 1) continuing with expected management, hcg q48H, until clinical picture is more clear, 2) initiate D&C to rule out IUP, and 3) treatment with methotrexate. Patient is electing treatment with methotrexate at this time. Consent obtained and medication ordered by Dr. Arriaga. Patient observed in the ED following the administration of methotrexate for an hour without adverse reaction noted. Per Dr. Arriaga, she will follow up in his office on day 4 (10/28) for repeat HCG and then in the ED on day 7 (10/31). Return precautions discussed with patient at bedside and also provided in discharge summary. Patient verbalized understanding of and agreement with plan. Differential Diagnosis Differential Diagnoses: The differential diagnosis associated with the presentation includes As per [facility] Consult Healthcare Provider Management of the patient was discussed with: Neonatal Social Worker (Dr. Arriaga) Lab Data [facility] Lab Attestation statement: I reviewed the patient's lab results. As per [facility] 10/26/23 06:31 10/26/23 06:31 Labs: Lab Results 10/26/23 10/26/23 10/26/23 Range/Units 06:31 10:54 12:49 WBC 6.3 (4.8-10.8) X10*3/uL RBC 3.90 L (4.20-5.50) X10*6/uL Hgb 12.3 (12.0-16.0) g/dl Hct 35.9 L (37.0-47.0) % MCV 92.1 (80.0-98.0) fL MCH 31.5 (27.0-33.0) pg MCHC 34.3 (31.0-35.0) g/dl RDW 13.0 (11.0-16.0) % Plt Count 262 (160-400) X10*3/uL MPV 9.1 L (9.4-12.3) fL Immature Gran % (Auto) 0.5 H (0.0-0.4) % Neut % (Auto) 48.6 (45-73) % Lymph % (Auto) 40.3 H (20-40) % [place] % (Auto) 9.3 (2-11) % Eos % (Auto) 1.0 (0-4) % Baso % (Auto) 0.3 (0-2) % Lymph # (Auto) 2.5 (1.2-4.9) X10*3/uL [place] # (Auto) 0.6 (0.1-1.2) X10*3/uL Eos # (Auto) 0.1 (0.0-0.4) X10*3/uL Baso # (Auto) 0.0 (0.0-0.2) X10*3/uL Abs Immat Gran (auto) 0.03 (0.00-0.03) X10*3/uL Absolute Neuts (auto) 3.1 (2.0-8.3) x10*3/uL Absolute Nucleated RBC 0.000 (0.0-0.012) X10*3/uL Nucleated RBC % (auto) 0.0 (0.0-0.2) /100WBC Sodium 135 (135-145) mmol/L Potassium 4.1 (3.3-5.1) mmol/L Chloride 104 (96-108) mmol/L Carbon Dioxide 26 (22-29) mmol/L Anion Gap 9 L (12-20) BUN 9 (9-16) mg/dL Creatinine 0.76 (0.5-1.4) mg/dL Estim Creat Clear Calc 117.0 Estimated GFR > 60 Random Glucose 103 (60-115) mg/dL Calcium 9.0 (8.4-10.2) mg/dL Total Bilirubin 0.3 (0.0-1.0) mg/dL AST 18 (5-31) U/L ALT 17 (0-31) U/L Alkaline Phosphatase 81 (39-117) U/L Total Protein 6.9 (6.5-8.0) g/dL Albumin 4.0 (3.5-5.0) g/dL Beta HCG, Quant 4182 mIU/mL Urine Color Yellow Urine Appearance Cloudy Urine pH 7.0 (5.0-9.0) Ur Specific [place] 1.010 (1.005-1.025) Urine Protein Negative (Neg-Trace) mg/dL Urine Glucose (UA) Negative (Negative) mg/dL Urine Ketones Negative (Negative) mg/dL Urine Blood Large (3+) H (Negative) Urine Nitrite Negative (Negative) Ur Leukocyte Esterase Negative (Negative) Urine RBC 6-10 H (0-2) /HPF Urine WBC 0-5 (0-5) /HPF Ur Squamous Epith Cells 3-5 (0-2) /HPF Urine Bacteria None Seen (None Seen) Hyaline Casts 0-2 (0-2) /LPF Blood Type AB Positive Antibody Screen NEGATIVE Independent Interpretation Interpretation: No evidence of IUP or ectopic , ovarian cyst Radiology Impression Discussion of test interpretation with radiology: I have reviewed the radiologist's reading. Radiologist Impression: US/US OB <= 14 weeks fetus IMPRESSION: No evidence of ectopic or intrauterine gestation. Trace of fluid in endometrial canal and small amount of fluid in cul-de-sac. Left ovarian cyst. External Record Review External record reviewed: Inpatient record, Office record and Outpatient record Discharge Plan Discharge Clinical Impression: Elevated serum hCG Patient Disposition: Home, Self-Care Additional Instructions: You were evaluated in the emergency department today for follow-up of elevated HCG level and repeat ultrasound. The ultrasound did not show clear evidence of either and intrauterine or ectopic . After discussion with Dr. Arriaga, RAILROAD YARD WORKER, you elected for treatment with methotrexate. You are to follow up with Dr. Arriaga in his office on 10/29/23 in his office for repeat HCG, then in the Emergency Department on 11/01/23 for repeat HCG. Please call his office first thing Friday morning to schedule this appointment, they will not call you. You should avoid intercourse until cleared by Dr. Arriaga. You should avoid alcohol for several days. Avoid exposure to sun. You should return to the emergency department sooner if you develop worsening pain, vaginal bleeding, feel lightheaded, develop chest pain, shortness of breath, fevers, or any other concerning symptoms. Prescriptions: No Action mupirocin 2 % ointment 1 appl topical BID-TID Linzess 145 mcg capsule 145 mcg PO QAM Qty: 30 3RF Hold Instructions: Doctor's Order clobetasol 0.05 % foam 1 appl topical DAILY pantoprazole [Protonix] 40 mg tablet,delayed release (DR/EC) 40 mg PO DAILY 30 Days Qty: 30 6RF lubiprostone [Amitiza] 8 mcg capsule 8 mcg PO BID Qty: 60 6RF famotidine [Pepcid] 40 mg tablet 40 mg PO BEDTIME Qty: 30 3RF lamotrigine 25 mg tablet 50 mg PO BID levonorgestrel-ethinyl estrad 0.15 mg-30 mcg (91) tablets,dose pack,3 month 1 tab PO DAILY hydroxychloroquine 200 mg tablet 200 mg PO BID dextroamphetamine-amphetamine [Adderall] 20 mg tablet 20 mg PO DAILY Referrals: Guanakito Arriaga MD [Physician] - Print Language: Swedish
[2023-10-26 07:12] LABS: Alanine Aminotransferase 17 U/L (0-31); Alkaline Phosphatase 81 U/L (39-117); Anion Gap 9 (12-20); Aspartate Amino Transferase 18 U/L (5-31); Bilirubin Total 0.3 mg/dL (0.0-1.0); Blood Urea Nitrogen 9 mg/dL (9-16); Carbon Dioxide 26 mmol/L (22-29); Chloride 104 mmol/L (96-108); Estimated Glomerular Filt Rate > 60; Glucose Random 103 mg/dL (60-115); Potassium 4.1 mmol/L (3.3-5.1); Sodium 135 mmol/L (135-145); Total Protein 6.9 g/dL (6.5-8.0)
[2023-10-26 07:13] LABS: HCG Quantitative 4182 mIU/mL
--- NOTE | 2023-10-26 08:00 | PC.NURSE ---
pt to ultrasound a this time. will resume care of pt when she returns.
[2023-10-26 08:48] VITALS: BP 127/84; PULSE 105; RESP 16; TEMP 37; O2SAT 100
--- NOTE | 2023-10-26 08:56 | PC.NURSE ---
pt returned from ultrasound at this time. a&ox4. vss and up to date aside from being slightly tachycardic. pt denies chest pain/palpitations. pt presents to ED d/t elevated HCG levels. pt sent in by dr. stephenson so she can be r/o for an ectopic . pt denies any vaginal bleeding/discharge/abd pain/dizziness/lightheadedness. pt waiting for pelvic to be completed by provider. no sob/wob noted. respirations even/unlabored. plan of care ongoing. call vital placed within reach.
--- NOTE | 2023-10-26 10:49 | PC.NURSE ---
dr. stephenson bedside speaking w/ pt in regards to potential complications of methotrexate injection.
--- NOTE | 2023-10-26 10:54 | PM.GYNCN ---
SENIOR BUSINESS DEVELOPMENT ANALYST - CN: HPI Data of Consult Consult date: 10/26/23 Primary Care Provider: Andressa Siegel NP Consult Narrative Narrative: I was consulted Astrid Jiménez who is a 38 year old female with presenting to the emergency room for 48 hour follow up of elevated HCG level. LMP was 09/12/23, making her by today at 6 weeks and 2 days of gestation. The patient had a positive test at home. [facility] . According to the patient an ultrasound did not identify an intrauterine , beta HCG levels were noted to be 2082. The patient was given a dose of mifepristone p.o. which she took 10/22 and was advised to come to the emergency room to rule out ectopic . On 10/23 the patient presented to emergency room hCG is 2283, blood type AB-positive, ultrasound showed no evidence of IUP no adnexal masses. The patient was counseled options of treatment including expectant management, methotrexate treatment or uterine aspiration, after long counseling session about the pros and cons, risks and benefits of each approach, the patient decided to proceed with expectant management. The patient has been doing well minimal pelvic cramping on the left side, no nausea or vomiting no vaginal bleeding. Today in the emergency room H&H= 12.3/35.9, creatinine 0.76, AST/ALT within normal, hCG was 4182 cc:: CC: [facility] Past Medical History Medical History Anxiety and depression Fatty liver Discoid lupus ADHD (attention deficit hyperactivity disorder) OCD (obsessive compulsive disorder) Asthma GERD (gastroesophageal reflux disease) H/O LEEP (loop electrosurgical excision procedure) of cervix complicating History of nephrolithiasis Family History Family History Sister Colon cancer Paternal Grandfather Colon cancer Surgical History Surgical History History of carpal tunnel surgery H/O esophagogastroduodenoscopy H/O colonoscopy S/P skin biopsy Social History Social History Household Members: Family Alcohol intake: never Comment: all counts correct Patient Tobacco Use Status: Former Tobacco user Second Hand Smoke Exposure: No Advance Directives: No Advance Directives Information Provided: No 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 Allergies Allergy/AdvReac Type Severity Reaction Status Date / Time metronidazole [From Flagyl] Allergy Severe Vomiting Verified 10/26/23 06:14 Home Medications ?Medication ?Instructions ?Recorded ?Confirmed ?Last Taken ?Type dextroamphetamine-amphetamine 20 20 mg PO DAILY 02/05/23 09/02/23 04/18/23 History mg tablet (Adderall) hydroxychloroquine 200 mg tablet 200 mg PO BID 02/05/23 09/02/23 Unknown History lamotrigine 25 mg tablet 50 mg PO BID 02/05/23 09/02/23 04/18/23 History levonorgestrel 0.15 mg-ethinyl 1 tab PO DAILY 02/05/23 09/02/23 Unknown History estradiol 30 mcg tablets,3 mos pack(91) mupirocin 2 % topical ointment 1 appl topical BID-TID 04/08/23 04/18/23 Unknown History clobetasol 0.05 % topical foam 1 appl topical DAILY 05/22/23 09/02/23 Unknown History SENIOR BUSINESS DEVELOPMENT ANALYST Physical Exam Vitals Vital signs: Temp Pulse Resp BP Pulse Ox O2 Del Method 98.6 F 105 H 16 127/84 100 Room Air 10/26/23 08:48 10/26/23 08:48 10/26/23 08:48 10/26/23 08:48 10/26/23 08:48 10/26/23 08:48 BMI result Body Mass Index 30.6 Abdomen Auscultation/Inspection/Palpation: Soft, Non-distended and No tenderness SENIOR BUSINESS DEVELOPMENT ANALYST - Results Labs 10/26/23 06:31 10/26/23 06:31 Labs: Short CBC 10/26/23 Range/Units 06:31 WBC 6.3 (4.8-10.8) X10*3/uL Hgb 12.3 (12.0-16.0) g/dl Hct 35.9 L (37.0-47.0) % Plt Count 262 (160-400) X10*3/uL BMP 10/26/23 06:31 Sodium 135 Potassium 4.1 Chloride 104 Carbon Dioxide 26 BUN 9 Creatinine 0.76 Calcium 9.0 Liver Function 10/26/23 Range/Units 06:31 Total Bilirubin 0.3 (0.0-1.0) mg/dL AST 18 (5-31) U/L ALT 17 (0-31) U/L Alkaline Phosphatase 81 (39-117) U/L Albumin 4.0 (3.5-5.0) g/dL Imaging US - abdomen: Radiologist's impression: ITS Impressions Ultrasound 10/26/23 08:14 IMPRESSION: No evidence of ectopic or intrauterine gestation. Trace of fluid in endometrial canal and small amount of fluid in cul-de-sac. Left ovarian cyst. Assessment and Plan (1) Ectopic : Status: Acute Discussed with the patient the findings on ultrasound showing no evidence of intrauterine or ectopic with no adnexal masses, in addition discussed with the patient the rate of rise of HCG above 40 % within 48 hours which is associated with 99% of normal intrauterine but cannot rule out ectopic . Discussed with the patient the differential diagnosis including early diagnosis intrauterine or under diagnosis ectopic of unknown location, explained the to the patient that the hCG is above 3500 which is discriminatory zone , where an IUP should be identified by ultrasound in 99% of cases. In addition discussed the patient at the rate of rise of hCG more than 40% in 48 hours at hCG level is present in 99% of intrauterine . Discussed with the patient treatment options including the following: Option 1, expected management, repeat HCG every 48 hours with warning signs of SAB versus ectopic, waiting for the clinical picture is a little more clear to the diagnosis of ectopic versus intrauterine with the risk of delaying diagnosis of an ectopic intra-abdominal rupture and bleeding and risk of morbidity mortality and benefit of preventing methotrexate treatment and its possible exposure of a possible intrauterine and risk of teratogenicity and SAB. Option 2, to start with Suction D and C to rule out intrauterine followed by HCG levels and determined intrauterine versus ectopic, the risk of this approach being termination of a live intrauterine that is early undetected by ultrasound, the risk being delayed diagnosis of ectopic and/or potential consequences. Option 3 is methotrexate treatment; All the pros and cons risks and benefits of this approach were discussed with the patient including but not limited to, failure rate of MTX ~15%, possible exposure of methotrexate teratogenicity to an early intrauterine not diagnosed by ultrasound with the risk of SAB and severe deformities, possibility of a early intrauterine . The patient decided to proceed with methotrexate treatment. The patient stated that this is an undesired tests white decided to terminated and is not concerned regarding the risk of teratogenicity or miscarriage with exposure to methotrexate. Discussed with the patient the common side effects of the medication, including skin rash, sensitivity to the sun, indigestion, nausea, sore mouth were discussed with the patient. Less common side effects (occurring in less than 2% of patients) were also discussed a drop in blood cell counts or temporary elevation in liver enzymes. All questions were answered and recommended follow up reviewed. Plan methotrexate 50 mg/m2 BSA x 2.07 m2 BSA = 103 mg methotrexate IM x 1. Patient information sheet was given to the patient and instructed patient not to have intercourse or perform strenuous exercises or activities avoid sun exposure . The patient was given to the instructions to schedule a follow up appointment with HCG level on Friday10/29/2023, day 4 , order placed and to come back to the emergency room on day , Friday11/01/2023 and schedule an appointment in the office weekly afterwards with hCG level till hCG level is down to non levels. Signs and symptoms of ruptured ectopic discussed with the patient, she is to call or go to the ER if abdominal pain occurs, Otherwise instructions given the patient to schedule a follow up appointment with HCG level on Friday10/29/2023, on day 4 and another follow-up ER evaluation with repeat HCG on day 7, Friday11/01/23 and weekly afterwards still hCG level is down to non levels Explained to the patient the urgency of her clinical situation and the importance of scheduling a very close follow-up appointment at the exact instructed days and times otherwise it will cause delay in the diagnosis and the treatment and might lead to potential negative consequences on the patient's well being and health including ruptured ectopic , intra-abdominal bleed and possible . All questions were answered pt verbalized understanding.
[2023-10-26 10:56] VITALS: BMI 30.4
[2023-10-26 11:00] LABS: Appearance Urine Cloudy; Color Urine Yellow; Glucose Urine UA Negative (Negative); Leukocyte Esterase Urine Negative (Negative); Nitrite Urine Negative (Negative); UMIC TRIGGER UACC YES; Urine Blood Large (3+) (Negative); Urine Ketones Negative (Negative); Urine Protein Negative (Neg-Trace)
--- NOTE | 2023-10-26 11:04 | PC.NURSE ---
UA obtained/sent to lab. height/weight verified for injection.
[2023-10-26 11:05] LABS: Bacteria Urine None Seen (None Seen); Hyaline Casts Urine 0-2 /LPF (0-2); WBC Urine 0-5 /HPF (0-5)
--- NOTE | 2023-10-26 13:10 | PC.NURSE ---
medication delivered from pharmacy/administered.
[2023-10-26 14:29] VITALS: BP 119/71; PULSE 91; RESP 16; TEMP 36.9; O2SAT 100
== END 2023-10-26 14:30 | disposition home or self-care (01) ==
PROVIDERS: Registered Nurse Emergency; Emergency Provider Emergency Medicine; PCP Nurse Practitioner Family
DX: R89.1 Abnormal level of hormones in specimens from other organs, systems and tissues (principal); R10.32 Left lower quadrant pain
CPT/HCPCS: 36415; 76801; 80053; 81001; 81003; 84702; 85025; 86850; 86900; 86901; 99283; 99284; J0209

== ENCOUNTER → 2023-10-26 06:25 | Outpatient (BNV) | payer OTHER, SELFPAY | PROVIDERS: Emergency Provider Emergency Medicine; PCP Nurse Practitioner Family; Visit Provider Obstetrics & Gynecology | DX: O00.90 Unspecified ectopic pregnancy without intrauterine pregnancy (principal) | CPT/HCPCS: 99283 ==

== ENCOUNTER 2023-10-27 11:26 | Outpatient (AMB) | payer OTHER, SELFPAY ==
--- NOTE | 2023-10-27 11:38 | A.OFFVIS_ITS ---
Vital Signs 10/27/23 11:39 Height 5 ft 7 in Weight 194 lb BMI 30.4 BP 120/78 Intake Visit Reasons: ER follow up [employer] Machine Operator Required: No Information Interpreted: non-clinical & clinical Transition Manager: Transition Manager Present (Trixie) Allergies metronidazole [From Flagyl] Allergy (Severe, Verified 10/27/23 11:39) Vomiting Post menopausal: No HPI Comments Details: The patient went to emergency room on 10/23 and 10/25 for follow up of elevated HCG level and rule out ectopic . LMP was 09/12/23, making her by today at 6 weeks and 5 days of gestation. The patient had a positive test at home. [facility] . According to the patient an ultrasound did not identify an intrauterine , beta HCG levels were noted to be 2082. The patient was given a dose of mifepristone p.o. which she took 10/22 and was advised to come to the emergency room to rule out ectopic . On 10/23 the patient presented to emergency room hCG is 2283, blood type AB- positive, ultrasound showed no evidence of IUP no adnexal masses. GC/CT were negative. The patient was counseled options of treatment including expectant management, methotrexate treatment or uterine aspiration, after long counseling session about the pros and cons, risks and benefits of each approach, the patient decided to proceed with expectant management. The patient went back to the emergency room 48 hours afterwards on 10/25 where the following evaluation was done H&H= 12.3/35.9, creatinine 0.76, AST/ALT within normal, hCG was 4182, pelvic ultrasound showed no evidence of IUP nor ectopic . After prolonged counseling about options of treatment, decided to proceed with methotrexate treatment. 103 mg of methotrexate IM was given. The patient started having spotting yesterday this was followed by pelvic cramping overnight and woke up this morning passed a large clump of tissue with what looks like gestational sac according to the patient, the patient brought to the tissue with her to the office today, since the the patient is experiencing no more pelvic pain and her vaginal bleeding has slowed down markedly [facility] Medical History Anxiety and depression Fatty liver Discoid lupus ADHD (attention deficit hyperactivity disorder) OCD (obsessive compulsive disorder) Asthma GERD (gastroesophageal reflux disease) H/O LEEP (loop electrosurgical excision procedure) of cervix complicating History of nephrolithiasis Surgical History History of carpal tunnel surgery H/O esophagogastroduodenoscopy H/O colonoscopy S/P skin biopsy Family History Sister Colon cancer Paternal Grandfather Colon cancer Social History Household Members: Family Alcohol intake: never Comment: all counts correct Patient Tobacco Use Status: Former Tobacco user Second Hand Smoke Exposure: No 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 Female Reproductive History Menstrual control method: none Review of Systems Const All systems reviewed & are unremarkable except as noted in HPI and below Physical Exam Vital Signs: Last Vital Signs BP 120/78 10/27/23 11:39 BMI result Body Mass Index 30.4 GI Palpation (GI): Soft to palpation, not firm and nontender General: Yes no CVA tenderness External Female Exam: normal external appearance and normal appearance of the urethra Speculum Exam - Vagina: normal appearance of the vagina, normal palpation, no lesions, no masses and other (No blood per vagina) Speculum Exam - Cervix: normal appearance of the cervix, normal palpation, no lesions, no masses and nontender Bimanual exam- vagina & uterus: normal bimanual exam, normal palpation, uterine size normal, normal palpation, uterine shape normal, No Cervical tenderness present and non-tender Bimanual Exam- Adnexa, other: normal adnexae Back/Spine/Pelvis Back: no CVA tenderness Assessment & Plan Assessment & Plan (1) Complete : Code(s): O03.9 - Complete or unspecified spontaneous without complication Category: Medical Plan: Vaginal tissue passed sent for frozen section; received a call by Dr. Oh regarding the results showing immature chorionic villi. Discussed with the patient the results the pathology pointing towards intrauterine with complete Will order hCG quantitative today and follow-up on Friday with repeat hCG quantitative. Signs and symptoms of incomplete and ectopic were discussed with the patient. Instructions given to patient to call or go to emergency in case of pelvic pain and or vaginal bleeding. All questions answered, the patient verbalized understanding. Orders: Orders Surgical Today O00.90 - Unspecified ectopic without intrauterine HCG Quantitative Today O03.9 - Complete or unspecified spontaneous without complication Coding Level of Care Code Est Pt Level 3 (34352) Diagnoses Complete O03.9
[2023-10-27 11:39] VITALS: BP 120/78; BMI 30.4
== END 2023-10-27 12:19 | disposition home or self-care (01) ==
LOC: HO.HWS 11:26
PROVIDERS: PCP Nurse Practitioner Family; Visit Provider Obstetrics & Gynecology
DX: O03.9 Complete or unspecified spontaneous abortion without complication (principal)
CPT/HCPCS: 99213

== ENCOUNTER 2023-10-27 11:26 | Outpatient (REF) | payer OTHER, SELFPAY | END 2023-10-27 11:27 | disposition home or self-care (01) | LOC: HO.LNP 11:26 | PROVIDERS: PCP Nurse Practitioner Family; Visit Provider Obstetrics & Gynecology | DX: O00.90 Unspecified ectopic pregnancy without intrauterine pregnancy (principal) | CPT/HCPCS: 88305; 88331; 88332 ==

== ENCOUNTER 2023-10-27 13:27 | Outpatient (REF) | payer OTHER, SELFPAY ==
[2023-10-27 15:04] LABS: HCG Quantitative 2641 mIU/mL
== END 2023-10-27 13:28 | disposition home or self-care (01) ==
LOC: HO.LAB 13:27
PROVIDERS: PCP Nurse Practitioner Family; Visit Provider Obstetrics & Gynecology
DX: O03.9 Complete or unspecified spontaneous abortion without complication (principal)
CPT/HCPCS: 36415; 84702

== ENCOUNTER 2023-10-28 14:52 | Outpatient (AMB) | payer OTHER, SELFPAY ==
[2023-10-28 14:54] VITALS: BP 126/64; PULSE 102; O2SAT 98; BMI 30.6
--- NOTE | 2023-10-28 14:54 | A.OFFVIS_ITS ---
Vital Signs 10/28/23 14:54 Height 5 ft 7 in Weight 195 lb 5.273 oz BMI 30.6 BP 126/64 Blood Pressure Location Rt brachial Position Sitting Pulse 102 H Pulse Source Pulse Oximeter Pulse Oximetry (%) 98 Oxygen Delivery Method Room Air Intake Visit Reasons: Joint Pain/SLE Intake Note: New pt presents today for joint pain consult, referred by [facility]. Reports discoid lupus ? systemic lupus. C/o joint pain, lesions and rash. Stump Shooter Required: No Accompanied by: Self / Same As Patient Allergies metronidazole [From Flagyl] Allergy (Severe, Verified 10/27/23 11:39) Vomiting Medication List - Last Reconciled 10/28/23 by Mervat Rosenbaum MD clobetasol 0.05% 1 appl topical DAILY PRN dextroamphetamine-amphetamine 20 mg (Adderall) 20 mg PO DAILY hydroxychloroquine 200 mg PO BID lamotrigine 50 mg PO BID linaclotide (Linzess) 145 mcg PO QAM mupirocin 2% 1 appl topical BID-TID HPI Comments Details: This is a 38-year-old female who presents for evaluation of lupus. And states that she was diagnosed with discoid lupus back in 2019 when she was having lesions in her face and scalp. She was started on hydroxychloroquine with resolution of her discoid lesions. However since April of 2023 she has been having rashes. She had an episode of malar rash 08/2023. She also had a few episodes of rashes on her forearms and hands. Both episodes were treated with prednisone taper. She also states that she has been having some joint pain especially in her back, knees, pain is more severe in the morning, associated with stiffness lasting for 1 hour and more severe after getting up from sitting down for some time. She denies any swollen joints. She denies any blood or frothy urine. Denies any history of DVT/PE. Denies any oral ulcers. Denies any fevers or weight loss. She is unaware of any family history of an autoimmune rheumatic disease. She states that her fingers change color in the cold but not significant. Denies any history of digital ulcers. [facility] Medical History Anxiety and depression Fatty liver Discoid lupus ADHD (attention deficit hyperactivity disorder) OCD (obsessive compulsive disorder) Asthma GERD (gastroesophageal reflux disease) H/O LEEP (loop electrosurgical excision procedure) of cervix complicating History of nephrolithiasis Surgical History History of carpal tunnel surgery H/O esophagogastroduodenoscopy H/O colonoscopy S/P skin biopsy Family History Sister Colon cancer Paternal Grandfather Colon cancer Social History Household Members: Family Alcohol intake: never Comment: all counts correct Patient Tobacco Use Status: Former Tobacco user Second Hand Smoke Exposure: No 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 Female Reproductive History Menstrual control method: none Total pregnancies: 2 Full term: 1 Ab spontaneous: 1 Review of Systems Const Reports fatigue, Denies fever(s), Reports headache(s) and Reports weight gain ENT Details: Mouth sores Reports headache(s) GI Reports constipation Musc Reports arthralgias, Denies joint swelling and Reports stiffness Skin/Breast Reports erythema, Reports rash and Reports unusual bruising Neuro Reports headache(s) Endo Reports fatigue Physical Exam Vital Signs: Last Vital Signs Pulse 102 H 10/28/23 14:54 BP 126/64 10/28/23 14:54 Pulse Ox 98 10/28/23 14:54 Oxygen Delivery Method Room Air 10/28/23 14:54 BMI result Body Mass Index 30.6 Const General: cooperative, healthy appearing and comfortable Nutritional Appearance: overweight Orientation/consciousness: patient oriented x3 Limitations: no limitations HEENT Head: Yes normocephalic and Yes atraumatic Mouth: moist mucous membranes Resp Effort & Inspection: normal respiratory effort and able to speak in complete sentences Auscultation: clear to auscultation bilaterally Cardio Rate: regular rate Rhythm: regular rhythm Skin General skin exam: no rashes or lesions noted Neuro General: patient oriented x3 Extrem Other: No active synovitis Normal nailfold capillaroscopy Assessment & Plan Assessment & Plan (1) Acute cutaneous lupus erythematosus: Code(s): L93.1 - Subacute cutaneous lupus erythematosus Category: Medical Plan: This is a 38-year-old female who presents for evaluation of lupus.? And states that she was diagnosed with discoid lupus back in 2019 when she was having lesions in her face and scalp.? She was started on hydroxychloroquine with resolution of her discoid lesions.? However since April of 2023 she has been having rashes.? She had an episode of malar rash 08/2023.? She also had a few episodes of rashes on her forearms and hands.? Both episodes were treated with prednisone taper. Also she has been having some joint pain which is degenerative versus inflammatory in nature. Recent SLE activity labs were unremarkable. Advised patient to avoid the sun as much as possible, wear long hats, long sleeves, wear sunscreen. Consider tinted windows. Will continue to monitor patient for development of any additional symptoms that require additional DMARDs. Check labs before next visit in 3 months Plan I spent 48 minutes reviewing patient's chart, evaluating patient, ordering diagnostic workup, counseling patient and documenting in the chart Orders: Orders Anti Extractable Nuclear Ag 3 Months M3. - Systemic lupus erythematosus, unspecified Complement C3 3 Months M3. - Systemic lupus erythematosus, unspecified DNA Double Stranded-Crithidia 3 Months M3. - Systemic lupus erythematosus, unspecified Protein Creatinine Ratio, Ur 3 Months M32. - Systemic lupus erythematosus, unspecified Sjogren's Antibodies 3 Months M32.9 - Systemic lupus erythematosus, unspecified Comprehensive Met. Panel 3 Months M32. - Systemic lupus erythematosus, unspecified Immunofixation Pnl, Serum 3 Months M3. - Systemic lupus erythematosus, unspecified Protein Electrophoresis, Serum 3 Months M32.9 - Systemic lupus erythematosus, unspecified T Spot TB 3 Months Z11.7 - Encounter for testing for latent tuberculosis infection Cyclic Citrullinated Peptide 3 Months M25.50 - Pain in unspecified joint Beta-2 Glycoprotein Antibody 3 Months D68.61 - Antiphospholipid syndrome Lupus Anticoagulant Panel 3 Months D68.61 - Antiphospholipid syndrome RENNY Reflex Titer and Pattern 3 Months M32.9 - Systemic lupus erythematosus, unspecified Anti DNA DS Antibody 3 Months M32.9 - Systemic lupus erythematosus, unspecified Complement C4 3 Months M32. - Systemic lupus erythematosus, unspecified C Reactive Protein 3 Months M32.9 - Systemic lupus erythematosus, unspecified Erythrocyte Sedimentation Rate 3 Months M32.9 - Systemic lupus erythematosus, unspecified UA w Microscopic 3 Months M32. - Systemic lupus erythematosus, unspecified Complete Blood Count Auto Diff 3 Months M32.9 - Systemic lupus erythematosus, unspecified Hepatitis A,B,C Profile 3 Months Z11.59 - Encounter for screening for other viral diseases Thiopurine Methyltransferase 3 Months Z51.81 - Encounter for therapeutic drug level monitoring, Z79.624 - joint terminal attack controller (current) use of inhibitors of nucleotide synthesis Cardiolipin Antibodies 3 Months D68.61 - Antiphospholipid syndrome Coding Level of Care Code New Pt Level 4 (27790) Diagnoses Acute cutaneous lupus erythematosus L93.1
== END 2023-10-28 15:32 | disposition home or self-care (01) ==
PROVIDERS: PCP Nurse Practitioner Family; Visit Provider Student in an Organized Health Care Education/Training Program
DX: L93.1 Subacute cutaneous lupus erythematosus (principal)
CPT/HCPCS: 99204

== ENCOUNTER → 2023-10-28 14:52 | Outpatient (BNVA) | payer OTHER, SELFPAY | PROVIDERS: PCP Nurse Practitioner Family; Visit Provider Student in an Organized Health Care Education/Training Program ==

== ENCOUNTER 2023-10-29 07:16 | Outpatient (REF) | payer OTHER, SELFPAY ==
[2023-10-29 07:49] LABS: HCG Quantitative 682 mIU/mL
== END 2023-10-29 07:17 | disposition home or self-care (01) ==
LOC: HO.LAB 07:16
PROVIDERS: PCP Nurse Practitioner Family; Visit Provider Obstetrics & Gynecology
DX: O00.90 Unspecified ectopic pregnancy without intrauterine pregnancy (principal)
CPT/HCPCS: 36415; 84702

== ENCOUNTER 2023-10-29 10:40 | Outpatient (AMB) | payer OTHER, SELFPAY ==
[2023-10-29 10:45] VITALS: BMI 30.4
--- NOTE | 2023-10-29 10:45 | MHC.OFFVIS ---
Vital Signs 10/29/23 10:45 Height 5 ft 7 in Weight 194 lb 0.108 oz BMI 30.4 Intake Visit Reasons: HCG follow up Allergies metronidazole [From Flagyl] Allergy (Severe, Verified 10/27/23 11:39) Vomiting HPI Comments Details: Presenting for follow-up with no complaints minimal vaginal bleeding and no pelvic cramping. Pathology came back the following: Immature chorionic villi and organizing blood clot. HCG on 10/25 was 4182 10/26 was 2641 On 10/28 was 682 PFS Medical History Anxiety and depression Fatty liver Discoid lupus ADHD (attention deficit hyperactivity disorder) OCD (obsessive compulsive disorder) Asthma GERD (gastroesophageal reflux disease) H/O LEEP (loop electrosurgical excision procedure) of cervix complicating History of nephrolithiasis Surgical History History of carpal tunnel surgery H/O esophagogastroduodenoscopy H/O colonoscopy S/P skin biopsy Family History Sister Colon cancer Paternal Grandfather Colon cancer Social History Household Members: Family Alcohol intake: never Comment: all counts correct Patient Tobacco Use Status: Former Tobacco user Second Hand Smoke Exposure: No 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 Instructions given the patient to avoid intercourse and will repeat hCG weekly till it drops to non levels. Instructions given the patient to call or go to emergency in case of pelvic pain and or heavy vaginal bleeding, fever or 0.4, nausea or vomiting, and to schedule a follow-up appointment in a week. Discussed with the patient that Methotrexate is cleared from the serum before the 4 to12 weeks necessary for the resolution of the ectopic gestation and ovulation in the next cycle . However, there are reports of methotrexate detectable in liver cells 116 days past exposure . Limited evidence suggests that the frequency of congenital anomalies or early loss is not elevated in women who have become shortly after methotrexate exposure . However, perhaps based on the timing of methotrexate clearance from the body, some experts continue to recommend that women delay for at least 3 months after the last dose of methotrexate. All questions answered, the patient verbalized understanding Orders: Orders HCG Quantitative 11/05/23 O03.9 - Complete or unspecified spontaneous without complication Coding Level of Care Code Est Pt Level 3 (07178) Diagnoses Complete O03.9
== END 2023-10-29 11:16 | disposition home or self-care (01) ==
LOC: HO.HWS 10:40
PROVIDERS: PCP Nurse Practitioner Family; Visit Provider Obstetrics & Gynecology
DX: O03.9 Complete or unspecified spontaneous abortion without complication (principal)
CPT/HCPCS: 99213

== ENCOUNTER 2023-11-04 10:58 | Outpatient (REF) | payer OTHER, SELFPAY ==
--- NOTE | ~2023-11-04 | US_ITS ---
EXAMINATION: US PELVIS CLINICAL INFORMATION: Follow-up cystic area in the endometrium. Last menstrual period September 12, 2023. COMPARISON: OB ultrasound October 24, 2023. TECHNIQUE: Ultrasound of the pelvis is performed using both transabdominal and transvaginal transducers along with Doppler. Transvaginal imaging is performed due to inadequate visualization transabdominally. FINDINGS: Uterus is anteverted and measures 8.3 x 2.6 x 5.3 cm. No discrete fibroids identified. Endometrial thickness is 7 mm. Limited visualization of the endometrium due to uterine positioning and bowel gas. Small amount of fluid within the endometrial cavity. Nabothian cysts in the cervix. Left ovary measures 2.4 x 1.6 x 2.1 cm, volume 4.1 mL and is unremarkable. Right ovary measures 4.5 x 2.9 x 2.9 cm, volume 19.6 mL. A 3.5 x 2.1 x 2.8 cm right ovarian cyst with possible thin septation. Ultrasound of October 24, 2023 demonstrated a 3.7 x 2.5 x 3.2 cm right ovarian cyst felt to most likely represent a corpus luteum. Small amount of free fluid. US/US pelvic and transvaginal IMPRESSION: 1. Endometrial thickness is 7 mm. Limited visualization of the endometrium due to uterine positioning and bowel gas. Small amount of fluid within the endometrial cavity. 2. Right ovarian 3.5 cm cyst with possible thin septation. Ultrasound of October 24, 2023 demonstrated a 3.7 x 2.5 x 3.2 cm right ovarian cyst felt to most likely represent a corpus luteum. 3. Correlation with beta hCG and clinical exam recommended to determine further management.
== END 2023-11-04 10:59 | disposition home or self-care (01) ==
LOC: HO.US 10:58
PROVIDERS: PCP Nurse Practitioner Family; Visit Provider Advanced Practice Midwife
DX: N93.9 Abnormal uterine and vaginal bleeding, unspecified (principal); R93.5 Abnormal findings on diagnostic imaging of other abdominal regions, including retroperitoneum
CPT/HCPCS: 76830; 76856

== ENCOUNTER 2023-11-05 07:30 | Outpatient (REF) | payer OTHER, SELFPAY ==
[2023-11-05 08:43] LABS: HCG Quantitative 44 mIU/mL
== END 2023-11-05 07:31 | disposition home or self-care (01) ==
LOC: HO.LAB 07:30
PROVIDERS: PCP Nurse Practitioner Family; Visit Provider Obstetrics & Gynecology
DX: O03.9 Complete or unspecified spontaneous abortion without complication (principal)
CPT/HCPCS: 36415; 84702

== ENCOUNTER 2023-11-05 08:41 | Outpatient (AMB) | payer OTHER, SELFPAY ==
--- NOTE | 2023-11-05 08:42 | MHC.OFFVIS ---
Vital Signs 11/05/23 08:43 Height 5 ft 7 in Weight 194 lb 0.108 oz BMI 30.4 Intake Visit Reasons: HCG Follow up Allergies metronidazole [From Flagyl] Allergy (Severe, Verified 10/27/23 11:39) Vomiting HPI Comments Details: Presenting for follow-up with no complaints no vaginal bleeding and no pelvic cramping. Pathology came back the following: Immature chorionic villi and organizing blood clot. HCG on 10/25 was 4182 10/26 was 2641 On 10/28 was 682 11/04 HCG= 44 PFSH Medical History Anxiety and depression Fatty liver Discoid lupus ADHD (attention deficit hyperactivity disorder) OCD (obsessive compulsive disorder) Asthma GERD (gastroesophageal reflux disease) H/O LEEP (loop electrosurgical excision procedure) of cervix complicating History of nephrolithiasis Surgical History History of carpal tunnel surgery H/O esophagogastroduodenoscopy H/O colonoscopy S/P skin biopsy Family History Sister Colon cancer Paternal Grandfather Colon cancer Social History Household Members: Family Alcohol intake: never Comment: all counts correct Patient Tobacco Use Status: Former Tobacco user Second Hand Smoke Exposure: No 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 Discussed with the patient that Methotrexate is cleared from the serum before the 4 to12 weeks necessary for the resolution of the ectopic gestation and ovulation in the next cycle . However, there are reports of methotrexate detectable in liver cells 116 days past exposure . Limited evidence suggests that the frequency of congenital anomalies or early loss is not elevated in women who have become shortly after methotrexate exposure . However, perhaps based on the timing of methotrexate clearance from the body, some experts continue to recommend that women delay for at least 3 months after the last dose of methotrexate. All questions answered, the patient verbalized understanding (2) Family planning: Comment: Possible SLE Code(s): Z30.09 - Encounter for other general counseling and advice on contraception Category: Social Hx Plan: Discussed with the patient the different options of control including control pills/Nuvaring (contraindicated in the patient with possible lupus), DMPA, Nexplanon, different types of IUD ?s ( cu vs progesterone) , sterilization or vasectomy. All the pros, cons, risks and benefits of each were discussed with the patient. The patient decided to think about it and get back to me. Orders: Orders HCG Quantitative 2 Weeks O03.9 - Complete or unspecified spontaneous without complication Coding Level of Care Code Est Pt Level 3 (04385) Diagnoses Complete O03.9 Family planning Z30.09
[2023-11-05 08:43] VITALS: BMI 30.4
== END 2023-11-05 09:22 | disposition home or self-care (01) ==
LOC: HO.HWS 08:41
PROVIDERS: PCP Nurse Practitioner Family; Visit Provider Obstetrics & Gynecology
DX: O03.9 Complete or unspecified spontaneous abortion without complication (principal); Z30.09 Encounter for other general counseling and advice on contraception
CPT/HCPCS: 99213

== ENCOUNTER 2023-11-19 07:29 | Outpatient (REF) | payer OTHER, SELFPAY ==
[2023-11-19 09:16] LABS: HCG Quantitative < 2 mIU/mL
== END 2023-11-19 07:30 | disposition home or self-care (01) ==
LOC: HO.LAB 07:29
PROVIDERS: Visit Provider Obstetrics & Gynecology
DX: O03.9 Complete or unspecified spontaneous abortion without complication (principal)
CPT/HCPCS: 36415; 84702

== ENCOUNTER 2023-12-08 10:49 | Outpatient (REF) | payer OTHER, SELFPAY ==
--- NOTE | ~2023-12-08 | MM_ITS ---
EXAMINATION: MM DIAGNOSTIC DIGITAL BREAST TOMOSYNTHESIS, RIGHT CLINICAL INFORMATION: Follow-up focal asymmetry right breast upper outer quadrant posterior one third. COMPARISON: Mammography: 04/22/2023, 03/25/2023, 03/22/2022. TECHNIQUE: Digital right breast tomosynthesis is performed in both the craniocaudal and mediolateral oblique views along with computer-aided detection (CAD). Synthesized 2D images are generated from the tomosynthesis. FINDINGS: There are scattered areas of fibroglandular density (ACR BI-RADS breast composition Category b). There is no significant interval change in the appearance of the focal asymmetry upper outer quadrant right breast posterior one third, which has the appearance on tomography of normal overlapping fibroglandular tissue. There is no suspicious mass is present. The trabecular pattern is unchanged. No suspicious calcifications, regions of architectural distortions, or dominant suspicious mass. In the same region, abutting the focal asymmetry, there is a 3 x 3 mm lobular oval mass, most likely a lymph node. We will evaluate this for stability on subsequent follow-up. MM/MM tomosynthesis diagnostic RT IMPRESSION: There are no findings suspicious for malignancy in the right breast. Focal asymmetry remains probably benign, most likely superimposition artifact, with a small abutting lobular 3 mm mass which is likely lymph node. Six-month interval follow-up recommended when the patient is due for bilateral screening. ASSESSMENT: BI-RADS BI-RADS 3 - Probably benign finding(s) - 6 month follow-up suggested RECOMMENDATION: 6 Month F/U Results were provided to the patient at time of visit by the technologist. This patient's information was entered into a reminder system with a target due date for their next mammogram.
== END 2023-12-08 10:50 | disposition home or self-care (01) ==
LOC: HO.MAMMO 10:49
PROVIDERS: Visit Provider Nurse Practitioner Family
DX: R92.8 Other abnormal and inconclusive findings on diagnostic imaging of breast (principal)
CPT/HCPCS: 77061; 77065

== ENCOUNTER → 2023-12-08 11:00 | Outpatient (BNV) | payer OTHER, SELFPAY | PROVIDERS: Visit Provider Radiology Diagnostic Radiology | DX: R92.8 Other abnormal and inconclusive findings on diagnostic imaging of breast (principal) | CPT/HCPCS: 77061; 77065 ==

== ENCOUNTER 2023-12-23 13:17 | Outpatient (REF) | payer OTHER, SELFPAY ==
--- NOTE | ~2023-12-23 | US_ITS ---
EXAMINATION: US PELVIS CLINICAL INFORMATION: Abnormal uterine bleeding, follow up ultrasound of 11/04/2023, no pain, last menstrual period 11/21/2023. COMPARISON: 11/04/2023. TECHNIQUE: Ultrasound of the pelvis is performed using both transabdominal and transvaginal transducers along with Doppler. Transvaginal imaging is performed due to inadequate visualization transabdominally. FINDINGS: The uterus is anteverted and measures 8.3 x 3.2 x 4.9 cm. Endometrial thickness is 8 mm. Previously identified small fluid within the endometrial cavity is not visualized on this exam. No significant free fluid in the endometrial cavity. Left ovary measures 2.3 x 1.6 x 1.4 cm, volume 2.7 mL. Right ovary measures 3.4 x 2.1 x 2.2 cm, volume 8.2 mL. Right ovarian 1.7 cm cyst characteristic of a follicle. Previous exam demonstrated a 3.5 cm right ovarian cyst with thin septation. There is no specific indication for additional imaging at this time. US/US pelvic and transvaginal IMPRESSION: 1. Endometrial thickness is 8 mm. Previously identified small fluid within the endometrial cavity is not visualized on this exam. No significant free fluid in the endometrial cavity. 2. Right ovarian 1.7 cm cyst characteristic of a follicle. Previous exam demonstrated a 3.5 cm right ovarian cyst with thin septation. There is no specific indication for additional imaging at this time.
== END 2023-12-23 13:18 | disposition home or self-care (01) ==
LOC: HO.US 13:17
PROVIDERS: PCP Nurse Practitioner Family; Visit Provider Advanced Practice Midwife
DX: N93.9 Abnormal uterine and vaginal bleeding, unspecified (principal)
CPT/HCPCS: 76830; 76856

== ENCOUNTER 2024-01-05 13:13 | Outpatient (AMB) | payer OTHER, SELFPAY ==
--- NOTE | 2024-01-05 13:17 | MHC.OFFVIS ---
Vital Signs 01/05/24 13:21 Height 5 ft 7 in Weight 194 lb 0.108 oz BMI 30.4 Intake Visit Reasons: AUB Water System Operator Required: No Information Interpreted: non-clinical & clinical Drywall Finisher: Drywall Finisher Present (Trixie COLEMAN) Accompanied by: Self / Same As Patient Allergies metronidazole [From Flagyl] Allergy (Severe, Verified 01/05/24 13:22) Vomiting Is last menstrual period known: Yes HPI Comments Details: Presenting for follow-up for abnormal bleeding, the patient has been having abnormal uterine bleeding for the last 4 months was seen at [place] with her CNM the following workup was done H&H= 12.3/35.9 TSH, hCG within normal GC/CT was negative Mammogram was done in 12/09 was BI-RADS 3, the recommendation was to repeat in 6 months Pelvic ultrasound showed the following: The uterus is anteverted and measures 8.3 x 3.2 x 4.9 cm. Endometrial thickness is 8 mm. Previously identified small fluid within the endometrial cavity is not visualized on this exam. No significant free fluid in the endometrial cavity. Left ovary measures 2.3 x 1.6 x 1.4 cm, volume 2.7 mL. Right ovary measures 3.4 x 2.1 x 2.2 cm, volume 8.2 mL. Right ovarian 1.7 cm cyst characteristic of a follicle. Previous exam demonstrated a 3.5 cm right ovarian cyst with thin septation. There is no specific indication for additional imaging at this time. [facility], [facility] Medical History Anxiety and depression Fatty liver Discoid lupus ADHD (attention deficit hyperactivity disorder) OCD (obsessive compulsive disorder) Asthma GERD (gastroesophageal reflux disease) H/O LEEP (loop electrosurgical excision procedure) of cervix complicating History of nephrolithiasis Surgical History History of carpal tunnel surgery H/O esophagogastroduodenoscopy H/O colonoscopy S/P skin biopsy Family History Sister Colon cancer Paternal Grandfather Colon cancer Social History Household Members: Family Alcohol intake: never Comment: all counts correct Patient Tobacco Use Status: Former Tobacco user Second Hand Smoke Exposure: No 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 hysteroscopy D&C) & the risks were discussed with the patient including but not limited: pain, uterine perforation, bleeding, infection, possible injury to bladder, bowel, ureter, possible need for blood transfusion with all its possible risks. The patient verbalized understanding all questions answered and signed consent. Urine test done in the office was negative The patient was placed into the dorsal lithotomy position; a speculum was inserted in the vagina. Using aseptic technique for the procedure, the cervix was cleansed with Betadine. The anterior lip of the cervix was grasped with a single tooth tenaculum. The uterus was sounded to 7 cm with a 4 mm Pipelle was used. Tissues samples were obtained and placed in formalin, in a patient labeled container and sent to the pathology department. At the end of the procedure, there was minimal bleeding noted The patient tolerated the procedure well and was discharged in good condition with the following instructions: Nothing in the vagina until the bleeding stops. No sex until the bleeding stops, to call if any of the following occurs: fever (>100.4), flu-like symptoms, abdominal pain, heavy bleeding, four smelling vaginal discharge. The patient was instructed to schedule a Follow up appointment in 2 weeks to discuss pathology results of the biopsy and treatment options. This note was generated with a voice recognition program. Some errors may have been overlooked during the review of this note. Sometimes these errors may affect the content or meaning of a given sentence. [id number] Biopsy Results AMB Test Urine AMB Test Urine Negative Last Edit by Trixie Walker CMA on 01/05/24 13:58 Assessment & Plan Assessment & Plan (1) Abnormal uterine bleeding (AUB): Comment: B3 on mammogram Code(s): N93.9 - Abnormal uterine and vaginal bleeding, unspecified Category: Medical Plan: Recommended to the patient that the next step is an endometrial sampling via hysteroscopy D&C possible polypectomy versus endometrial biopsy to r/o endometrial pathology including hyperplasia or cancer. All the pros and cons risks and benefits of each approach were discussed with the patient, endometrial biopsy being less invasive, office procedure with less sensitivity and inability diagnose a polyp and removal versus hysteroscopy done under anesthesia more invasive more sensitive to endometrial cancer and possibility of diagnosing and endometrial polyp with the possibility of polypectomy. All questions were answered pt verbalized understanding and decided to proceed with endometrial biopsy. EMB done, see procedure note Orders: Orders Surgical Today N93.9 - Abnormal uterine and vaginal bleeding, unspecified AMB HCG Urine Test Today Z32.02 - Encounter for test, result negative AMB Endometrial Biopsy Today N93.9 - Abnormal uterine and vaginal bleeding, unspecified Coding Level of Care Code Est Pt Level 3 (90940) Procedure Only Diagnoses Abnormal uterine bleeding (AUB) N93.9 CPT Codes Endometrial Biopsy - CPT: 99446-[id number] Biopsy ([id number])
[2024-01-05 13:21] VITALS: BMI 30.4
== END 2024-01-05 14:12 | disposition home or self-care (01) ==
LOC: HO.HWS 13:13
PROVIDERS: PCP Nurse Practitioner Family; Visit Provider Obstetrics & Gynecology
DX: N93.9 Abnormal uterine and vaginal bleeding, unspecified (principal); Z32.02 Encounter for pregnancy test, result negative
CPT/HCPCS: 58100; 99213

== ENCOUNTER 2024-01-05 13:13 | Outpatient (REF) | payer OTHER, SELFPAY | END 2024-01-05 13:14 | disposition home or self-care (01) | LOC: HO.LNP 13:13 | PROVIDERS: PCP Nurse Practitioner Family; Visit Provider Obstetrics & Gynecology | DX: N93.9 Abnormal uterine and vaginal bleeding, unspecified (principal) | CPT/HCPCS: 58100; 81025; 88305 ==

== ENCOUNTER 2024-01-15 08:37 | Outpatient (AMB) | payer OTHER, SELFPAY ==
[2024-01-15 08:42] VITALS: BMI 30.4
--- NOTE | 2024-01-15 08:42 | MHC.OFFVIS ---
Vital Signs 01/15/24 08:42 Height 5 ft 7 in Weight 194 lb 0.108 oz BMI 30.4 Intake Visit Reasons: EMB Results Allergies metronidazole [From Flagyl] Allergy (Severe, Verified 01/05/24 13:22) Vomiting HPI Comments Details: The patient is presenting after endometrial biopsy. The patient has no complaints, no vaginal bleeding, no feverishness chills or abdominal pain. The endometrial biopsy pathology report showed the following: Proliferative endometrium with stromal breakdown; negative for atypia, hyperplasia or malignancy The following workup for AUB was done so far: H&H= 12.3/35.9 TSH, hCG within normal GC/CT was negative Mammogram was done in 12/09 was BI-RADS 3, the recommendation was to repeat in 6 months Pelvic ultrasound showed the following: The uterus is anteverted and measures 8.3 x 3.2 x 4.9 cm. Endometrial thickness is 8 mm. Previously identified small fluid within the endometrial cavity is not visualized on this exam. No significant free fluid in the endometrial cavity. Left ovary measures 2.3 x 1.6 x 1.4 cm, volume 2.7 mL. Right ovary measures 3.4 x 2.1 x 2.2 cm, volume 8.2 mL. Right ovarian 1.7 cm cyst characteristic of a follicle. Previous exam demonstrated a 3.5 cm right ovarian cyst with thin septation. There is no specific indication for additional imaging at this time. [facility] Medical History Anxiety and depression Fatty liver Discoid lupus ADHD (attention deficit hyperactivity disorder) OCD (obsessive compulsive disorder) Asthma GERD (gastroesophageal reflux disease) H/O LEEP (loop electrosurgical excision procedure) of cervix complicating History of nephrolithiasis Surgical History History of carpal tunnel surgery H/O esophagogastroduodenoscopy H/O colonoscopy S/P skin biopsy Family History Sister Colon cancer Paternal Grandfather Colon cancer Social History Household Members: Family Alcohol intake: never Comment: all counts correct Patient Tobacco Use Status: Former Tobacco user Second Hand Smoke Exposure: No 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 Discussed with the patient the Ultrasound findings, the main limitation of transvaginal ultrasonography alone as a diagnostic tool to distinguish benign from malignant masses relates to its lack of specificity and low positive predictive value for cancer. The differential diagnosis discussed with the patient includes the following but not limited to: benign and malignant gynecological and non-gynecological causes. Recommended repeat US in 12 weeks from previous US. If the ovarian complex cyst is persistent larger and / or more complex looking, will refer to gynecologic Oncology. All pros, cons, risks and benefits of each approach were discussed with the patient including but not limited to a delay in the diagnosis and treatment of ovarian cancer affecting the prognosis; The patient decided to go ahead with expectant management. Instructions given the patient to schedule a 3 months follow-up ultrasound appointment. All questions were answered & the patient verbalized understanding and agreed with the plan. (2) Abnormal uterine bleeding (AUB): Comment: B3 on mammogram Code(s): N93.9 - Abnormal uterine and vaginal bleeding, unspecified Category: Medical Plan: Discussed with the patient the results of the work up done and options of treatment including Mirena IUD, Lysteda, BCP's,(both contraindicated with lupus) , endometrial ablation and hysterectomy (contraindicated in her case since the patient is interested in future fertility). All pros, cons, risks and benefits if each option was discussed with the patient and the patient decided to hold off treatment this point. Instructions given to patient to call in case bleeding is heavy. All questions answered the patient verbalized understanding. Orders: Orders US pelvic and transvaginal 3 Months N83.299 - Other ovarian cyst, unspecified side Coding Level of Care Code Est Pt Level 3 (43596) Diagnoses Complex ovarian cyst N83.299 Abnormal uterine bleeding (AUB) N93.9
== END 2024-01-15 08:59 | disposition home or self-care (01) ==
PROVIDERS: PCP Nurse Practitioner Family; Visit Provider Obstetrics & Gynecology
DX: N83.299 Other ovarian cyst, unspecified side (principal); N93.9 Abnormal uterine and vaginal bleeding, unspecified
CPT/HCPCS: 99213

== ENCOUNTER → 2024-01-15 08:37 | Outpatient (BNVA) | payer OTHER, SELFPAY | PROVIDERS: PCP Nurse Practitioner Family; Visit Provider Obstetrics & Gynecology ==

== ENCOUNTER 2024-01-20 12:05 | Outpatient (REF) | payer OTHER, SELFPAY ==
[2024-01-20 12:44] LABS: MANUAL DIFF FLAG NO
[2024-01-20 12:59] LABS: Basophils Percent Auto 0.5 % (0-2); Eosinophils Percent Auto 0.3 % (0-4); Hemoglobin 13.2 g/dl (12.0-16.0); Imm Gran Abs Auto 0.03 X10*3/uL (0.00-0.03); Imm Gran Pct Auto 0.5 % (0.0-0.4); Lymphocytes Percent Auto 32.3 % (20-40); Mean Corpuscular HGB Conc 33.8 g/dl (31.0-35.0); Mean Corpuscular Hemoglobin 31.1 pg (27.0-33.0); Mean Corpuscular Volume 91.8 fL (80.0-98.0); Mean Platelet Volume 10.2 fL (9.4-12.3); Monocytes Absolute Auto 0.3 X10*3/uL (0.1-1.2); Monocytes Percent Auto 5.3 % (2-11); Neutrophils Absolute Auto 3.7 x10*3/uL (2.0-8.3); Neutrophils Percent Auto 61.1 % (45-73); Platelet Count 215 X10*3/uL (160-400); Red Blood Count 4.25 X10*6/uL (4.20-5.50); Red Cell Distribution Width 12.9 % (11.0-16.0)
[2024-01-20 13:42] LABS: Erythrocyte Sedimentation Rate 12 MM/HR (0-20)
[2024-01-20 14:02] LABS: Alanine Aminotransferase 14 U/L (0-31); Albumin Level 4.3 g/dL (3.5-5.0); Alkaline Phosphatase 88 U/L (39-117); Anion Gap 11 (12-20); Aspartate Amino Transferase 16 U/L (5-31); Bilirubin Total 0.3 mg/dL (0.0-1.0); Blood Urea Nitrogen 12 mg/dL (9-16); C Reactive Protein < 0.10 mg/dL (< or = 0.50); Calcium 9.2 mg/dL (8.4-10.2); Carbon Dioxide 28 mmol/L (22-29); Chloride 105 mmol/L (96-108); Estimated Glomerular Filt Rate > 60; Glucose Random 92 mg/dL (60-115); Potassium 4.4 mmol/L (3.3-5.1); Sodium 140 mmol/L (135-145); Total Protein 7.4 g/dL (6.5-8.0)
[2024-01-20 17:10] LABS: Appearance Urine Clear; Color Urine Yellow; Glucose Urine UA Negative (Negative); Leukocyte Esterase Urine Negative (Negative); Nitrite Urine Negative (Negative); Specific Gravity - Urine 1.025 (1.005-1.025); UMIC TRIGGER UA YES; Urine Blood Small (1+) (Negative); Urine Ketones Negative (Negative); Urine Protein Trace mg/dL (Neg-Trace)
[2024-01-20 17:12] LABS: Bacteria Urine None Seen (None Seen); Hyaline Casts Urine 0-2 /LPF (0-2); RBC Urine >20 /HPF (0-2); Squamous Epithelial Cell Urine 0-2 /HPF (0-2); WBC Urine 0-5 /HPF (0-5)
[2024-01-20 22:27] LABS: Creatinine Urine 175.51 mg/dL; Protein/Creatinine Ratio, Ur 0.05 (<0.2); Total Protein Urine Random 8 mg/dL (<12)
[2024-01-21 04:44] LABS: HBS Num1 96.41 mIU/mL (0-7.99); HBc Num1 0.11 S/CO (0.00-0.79); HBsAGNum1 0.21 S/CO (0.00-0.99); Hepatitis A Antibody IgM 0.25 Index (0-0.79); Hepatitis B Core Antibody Nonreactive (Nonreactive); Hepatitis B Surface Antigen Negative (Negative); ~HepC Num1 0.13 S/CO (0.00-0.79); ~Hepatitis A Antibody IgM Nonreactive (Nonreactive); ~Hepatitis B Surface Antibody REACTIVE (Nonreactive); ~Hepatitis C Antibody Nonreactive (Nonreactive)
[2024-01-21 21:23] LABS: Anti DNA DS Antibody <1 IU/mL; Antibody to SS-A Antigen 1.0 POS AI (<1.0 NEG); Antibody to SS-B Antigen <1.0 NEG AI (<1.0 NEG); SM/Ribonucleoprotein Ab <1.0 NEG AI (<1.0 NEG); Smith Protein <1.0 NEG AI (<1.0 NEG)
[2024-01-22 10:29] LABS: Complement C3 137 mg/dL (83-193)
[2024-01-22 21:58] LABS: Cardiolipin IgG Ab <2.0 GPL-U/mL; Cardiolipin IgM Ab 3.6 MPL-U/mL
[2024-01-22 22:34] LABS: IgA 419 mg/dL (47-310); IgG 1220 mg/dL (600-1640); IgM 138 mg/dL (50-300)
[2024-01-23 11:08] LABS: Prot Elec - Albumin 4.8 g/dL (3.8-4.8); Prot Elec - Alpha1 0.3 g/dL (0.2-0.3); Prot Elec - Alpha2 0.8 g/dL (0.5-0.9); Prot Elec - Beta 1 0.6 g/dL (0.4-0.6); Prot Elec - Beta 2 0.6 g/dL (0.2-0.5); Prot Elec - Gamma 1.2 g/dL (0.8-1.7); Prot Elec - Total Protein 8.2 g/dL (6.1-8.1)
[2024-01-23 13:23] LABS: TS Negative Control Passed; TS Panel A 0; TS Panel B 0; TS Positive Control Passed; TSpotTB Negative (Negative)
[2024-01-23 13:57] LABS: Anti Nuclear Antibody Screen NEGATIVE (NEGATIVE)
[2024-01-23 15:38] LABS: Cyclic Citrullinated Peptide <16 UNITS
[2024-01-26 21:43] LABS: PTT (LAC) Screen 28 sec (<=40)
[2024-01-27 06:13] LABS: DNAds, Crithidia Antibody Negative (Negative)
[2024-01-31 06:43] LABS: Beta-2 Glycoprotein IgA 2.4 U/mL (<20.0); Beta-2 Glycoprotein IgG <2.0 U/mL (<20.0); Beta-2 Glycoprotein IgM <2.0 U/mL (<20.0)
[2024-02-01 17:39] LABS: TPMT Activity 14
== END 2024-01-20 12:06 | disposition home or self-care (01) ==
LOC: HO.LAB 12:05
PROVIDERS: PCP Nurse Practitioner Family; Visit Provider Student in an Organized Health Care Education/Training Program
DX: M32.9 Systemic lupus erythematosus, unspecified (principal); Z11.7 Encounter for testing for latent tuberculosis infection; D68.61 Antiphospholipid syndrome; M25.50 Pain in unspecified joint; Z11.59 Encounter for screening for other viral diseases; Z51.81 Encounter for therapeutic drug level monitoring; Z79.624 Long term (current) use of inhibitors of nucleotide synthesis
CPT/HCPCS: 36415; 80053; 81001; 82570; 82784; 84156; 84165; 84433; 85025; 85597; 85598; 85613; 85652; 85730; 86038; 86140; 86146; 86147; 86160; 86200; 86225; 86235; 86255; 86334; 86481; 86704; 86706; 86709; 86803; 87340

== ENCOUNTER 2024-01-21 08:48 | Outpatient (REF) | payer OTHER, SELFPAY ==
[2024-01-21 09:36] LABS: Estimated Average Glucose 100 mg/dL; Hemoglobin A1c % 5.1 % (<6.0)
[2024-01-21 10:12] LABS: Alanine Aminotransferase 17 U/L (0-31); Albumin Level 4.1 g/dL (3.5-5.0); Alkaline Phosphatase 87 U/L (39-117); Anion Gap 13 (12-20); Aspartate Amino Transferase 17 U/L (5-31); Bilirubin Total 0.5 mg/dL (0.0-1.0); Blood Urea Nitrogen 12 mg/dL (9-16); Calcium 9.2 mg/dL (8.4-10.2); Carbon Dioxide 25 mmol/L (22-29); Chloride 105 mmol/L (96-108); Cholesterol 161 mg/dL (<200); Estimated Glomerular Filt Rate > 60; Glucose Random 98 mg/dL (60-115); HDL Cholesterol 64 mg/dL (>40); LDL Cholesterol Calculated 85 mg/dL (<100); Potassium 4.1 mmol/L (3.3-5.1); Sodium 139 mmol/L (135-145); Total Protein 7.1 g/dL (6.5-8.0); Triglycerides 60 mg/dL (<150)
[2024-01-21 10:19] LABS: Thyroid Stimulating Hormone 0.57 uIU/mL (0.32-4.0)
[2024-02-09 15:28] LABS: Estradiol Ultra Sensitive 24; Follicle Stimulating Hormone 7.9; Lutenizing Hormone 5.7
== END 2024-01-21 08:49 | disposition home or self-care (01) ==
LOC: HO.LAB 08:48
PROVIDERS: PCP Nurse Practitioner Family; Visit Provider Nurse Practitioner Family
DX: Z00.00 Encounter for general adult medical examination without abnormal findings (principal); Z13.220 Encounter for screening for lipoid disorders; N83.299 Other ovarian cyst, unspecified side; N93.9 Abnormal uterine and vaginal bleeding, unspecified; Z13.1 Encounter for screening for diabetes mellitus
CPT/HCPCS: 36415; 80053; 80061; 82670; 83001; 83002; 83036; 84443

== ENCOUNTER 2024-01-28 14:35 | Outpatient (AMB) | payer OTHER, SELFPAY ==
[2024-01-28 14:51] VITALS: BP 122/72; PULSE 92; O2SAT 96; BMI 30.2
--- NOTE | 2024-01-28 14:51 | A.OFFVIS_ITS ---
Vital Signs 01/28/24 14:51 Height 5 ft 7 in Weight 193 lb 1.999 oz BMI 30.2 BP 122/72 Blood Pressure Location Lt brachial Position Sitting Pulse 92 Pulse Source Pulse Oximeter Pulse Oximetry (%) 96 Oxygen Delivery Method Room Air Intake Visit Reasons: cutaeuos lupus Intake Note: Patient last seen by Doctor Mervat Rosenbaum on 10/28/23. Presents today for Cutaneous Lupus follow up and test results. 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 She states that her skin has been doing well since last visit however she continues to have joints pains, especially the inside of her hips and her knees. Has not had any swelling. She has morning stiffness of her joints that lasts about 20 minutes. She has good and bad days with her joint pains. She uses ibuprofen as needed for joint pains. She takes it 3-4 days a week. About 2 days a week she would take it 3 to 4 times a day. Has been doing well otherwise Initial history: This is a 38-year-old female who presents for evaluation of lupus. And states that she was diagnosed with discoid lupus back in 2019 when she was having lesions in her face and scalp. She was started on hydroxychloroquine with resolution of her discoid lesions. However since April of 2023 she has been having rashes. She had an episode of malar rash 08/2023. She also had a few episodes of rashes on her forearms and hands. Both episodes were treated with prednisone taper. She also states that she has been having some joint pain especially in her back, knees, pain is more severe in the morning, associated with stiffness lasting for 1 hour and more severe after getting up from sitting down for some time. She denies any swollen joints. She denies any blood or frothy urine. Denies any history of DVT/PE. Denies any oral ulcers. Denies any fevers or weight loss. She is unaware of any family history of an autoimmune rheumatic disease. She states that her fingers change color in the cold but not significant. Denies any history of digital ulcers. ON LICENSE OF [facility] Medical History Anxiety and depression Fatty liver Discoid lupus ADHD (attention deficit hyperactivity disorder) OCD (obsessive compulsive disorder) Asthma GERD (gastroesophageal reflux disease) H/O LEEP (loop electrosurgical excision procedure) of cervix complicating History of nephrolithiasis Surgical History History of carpal tunnel surgery H/O esophagogastroduodenoscopy H/O colonoscopy S/P skin biopsy Family History Sister Colon cancer Paternal Grandfather Colon cancer Social History Household Members: Family Alcohol intake: never Comment: all counts correct Patient Tobacco Use Status: Former Tobacco user Second Hand Smoke Exposure: No 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 Female Reproductive History Menstrual control method: condoms Total pregnancies: 2 Full term: 1 Ab spontaneous: 1 Review of Systems Const Denies weight loss Musc Reports arthralgias and Denies joint swelling Skin/Breast Denies rash Physical Exam Vital Signs: Last Vital Signs Pulse 92 01/28/24 14:51 BP 122/72 01/28/24 14:51 Pulse Ox 96 01/28/24 14:51 Oxygen Delivery Method Room Air 01/28/24 14:51 BMI result Body Mass Index 30.2 Const General: cooperative, healthy appearing and comfortable Nutritional Appearance: overweight Orientation/consciousness: patient oriented x3 Limitations: no limitations HEENT Head: Yes normocephalic and Yes atraumatic Mouth: moist mucous membranes Resp Effort & Inspection: normal respiratory effort and able to speak in complete sentences Auscultation: clear to auscultation bilaterally Cardio Rate: regular rate Rhythm: regular rhythm Skin General skin exam: no rashes or lesions noted Neuro General: patient oriented x3 Extrem Other: No active synovitis No groin pain with hip manipulation Negative straight leg raise test bilaterally No groin pain with bilateral foot inversion No trochanteric bursa area tenderness bilaterally Normal nailfold capillaroscopy Assessment & Plan Assessment & Plan (1) Acute cutaneous lupus erythematosus: Comment: borderline +SSa onset 2019 (Discoid lesions, intermittent malar rash) HCQ 2019 effective Code(s): L93.1 - Subacute cutaneous lupus erythematosus Category: Medical Plan: This is a 38-year-old female with cutaneous lupus who presents for follow-up. Her lupus rashes have been very well controlled on hydroxychloroquine 20 mg Twice daily. Denies to have intermittent joint pains. On exam there is no active synovitis however. I do not think arthralgias warrant additional DMARDs at this stage and patient is not interested in any further DMARDs. Advised patient to try lowering her ibuprofen use. Advised patient to try Voltaren gel 4 times a day to both knees She gets the hydroxychloroquine prescription from her machine operator general and follows up regularly with marine gear keeper [facility] before next visit in 6 months Plan I spent 22 minutes reviewing patient's chart, evaluating patient, ordering diagnostic workup, counseling patient and documenting in the chart Orders: Orders C Reactive Protein 6 Months M32.9 - Systemic lupus erythematosus, unspecified Anti DNA DS Antibody 6 Months M32.9 - Systemic lupus erythematosus, unspecified DNA Double Stranded-Crithidia 6 Months M32.9 - Systemic lupus erythematosus, unspecified UA w Microscopic 6 Months M32.9 - Systemic lupus erythematosus, unspecified Complete Blood Count Auto Diff 6 Months M32.9 - Systemic lupus erythematosus, unspecified Comprehensive Met. Panel 6 Months M32.9 - Systemic lupus erythematosus, unspecified Erythrocyte Sedimentation Rate 6 Months M32.9 - Systemic lupus erythematosus, unspecified Complement C3 6 Months M32.9 - Systemic lupus erythematosus, unspecified Complement C4 6 Months M32.9 - Systemic lupus erythematosus, unspecified Protein Creatinine Ratio, Ur 6 Months M32.9 - Systemic lupus erythematosus, unspecified Coding Level of Care Code Est Pt Level 4 (24498) Diagnoses Acute cutaneous lupus erythematosus L93.1
== END 2024-01-28 15:19 | disposition home or self-care (01) ==
PROVIDERS: PCP Nurse Practitioner Family; Visit Provider Student in an Organized Health Care Education/Training Program
DX: L93.1 Subacute cutaneous lupus erythematosus (principal)
CPT/HCPCS: 99214

== ENCOUNTER → 2024-01-28 14:35 | Outpatient (BNVA) | payer OTHER, SELFPAY | PROVIDERS: PCP Nurse Practitioner Family; Visit Provider Student in an Organized Health Care Education/Training Program ==

== ENCOUNTER 2024-02-04 08:21 | Outpatient (AMB) | payer OTHER, SELFPAY ==
--- NOTE | 2024-02-04 08:25 | A.OFFVIS_ITS ---
Vital Signs 02/04/24 08:34 Height 5 ft 7 in Weight 195 lb BMI 30.5 BP 144/92 H Blood Pressure Location Rt brachial Position Sitting Pulse 91 Intake Visit Reasons: Genetic tesing Intake Note: Patient referred for genetic testing due to strong family hx of ovarian and colorectal CA. Process Stripper Required: No Accompanied by: Self / Same As Patient Allergies metronidazole [From Flagyl] Allergy (Severe, Verified 02/04/24 08:29) Vomiting HPI Comments Details: Patient was presents here because of follow-up regarding breast mammographic findings as well as a very strong family history of variety of breast and colon cancer. Patient was been followed by her regulator assembler doctor as well as medical doctor regarding annual mammograms and sonograms. Her most recent sonogram in November of this year demonstrated no suspicious pathology and recommended six-month follow-up. Patient had prior ultrasound which demonstrated similar findings. Patient has no symptoms of a mass, discharge, skin changes or any other breast symptoms bilaterally. Family history as noted above is significant for paternal colon and breast c ancers and maternal breast cancer. Patient also has a variety of cousins who have had these malignancies. Chart was reviewed and patient evaluated [facility] Medical History Anxiety and depression Fatty liver Discoid lupus ADHD (attention deficit hyperactivity disorder) OCD (obsessive compulsive disorder) Asthma GERD (gastroesophageal reflux disease) H/O LEEP (loop electrosurgical excision procedure) of cervix complicating History of nephrolithiasis Surgical History History of carpal tunnel surgery H/O esophagogastroduodenoscopy H/O colonoscopy S/P skin biopsy Family History (Updated 02/04/24 @ 08:33 by VIRGINIA Barrios) Sister Colon cancer Paternal Grandfather Colon cancer Mother Breast CA Paternal Aunt Breast CA Paternal Grandmother Breast CA Social History Household Members: Family Alcohol intake: never Comment: all counts correct Patient Tobacco Use Status: Former Tobacco user Second Hand Smoke Exposure: No 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 Bilateral breast exam demonstrates no obvious mass, discharge, adenopathy or skin changes bilaterally. GI Other: Abdomen is soft, corpulent, benign Assessment & Plan Assessment & Plan (1) Breast signs and symptoms: Code(s): N64.59 - Other signs and symptoms in breast Category: Surgical Plan Patient underwent video interview/instructions regarding genetic testing and apparently was a candidate and specimens were obtained and sent for evaluation. Patient will see me after these results. In the meantime she is scheduled for six-month follow-up bilateral mammograms which were ordered by her regulator assembler doctor. Patient will see me after the genetic testing results are available. All questions answered. She is encouraged to do self-breast exams monthly. Coding Level of Care Code New Pt Level 4 (70838) Diagnoses Breast signs and symptoms N64.59
[2024-02-04 08:34] VITALS: BP 144/92; PULSE 91; BMI 30.5
== END 2024-02-04 09:19 | disposition home or self-care (01) ==
PROVIDERS: PCP Nurse Practitioner Family; Visit Provider Surgery
DX: N64.59 Other signs and symptoms in breast (principal)
CPT/HCPCS: 99204

== ENCOUNTER → 2024-02-04 08:21 | Outpatient (BNVA) | payer OTHER, SELFPAY | PROVIDERS: PCP Nurse Practitioner Family; Visit Provider Surgery ==

== ENCOUNTER 2024-02-10 10:31 | Outpatient (AMB) | payer OTHER, SELFPAY ==
--- NOTE | 2024-02-10 10:31 | MHC.OFFVIS ---
Intake Visit Reasons: labs Allergies metronidazole [From Flagyl] Allergy (Severe, Verified 02/04/24 08:29) Vomiting HPI Comments Details: The patient is scheduled tele health visit discuss TSH, FSH/LH and estradiol levels odor by her PCP. TSH within normal FSH/LH in the premenopausal range Estradiol is not in the menopausal range PFS Medical History Anxiety and depression Fatty liver Discoid lupus ADHD (attention deficit hyperactivity disorder) OCD (obsessive compulsive disorder) Asthma GERD (gastroesophageal reflux disease) H/O LEEP (loop electrosurgical excision procedure) of cervix complicating History of nephrolithiasis Surgical History History of carpal tunnel surgery H/O esophagogastroduodenoscopy H/O colonoscopy S/P skin biopsy Family History Sister Colon cancer Paternal Grandfather Colon cancer Mother Breast CA Paternal Aunt Breast CA Paternal Grandmother Breast CA Social History Household Members: Family Alcohol intake: never Comment: all counts correct Patient Tobacco Use Status: Former Tobacco user Second Hand Smoke Exposure: No 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 Review of Systems Const All systems reviewed & are unremarkable except as noted in HPI and below Reports as per HPI and Reports no additional complaints GI Reports no additional complaints Reports no additional complaints Telehealth Telehealth Telehealth Platform: Telephone Location of provider rendering services: practice address Location of patient: address on file Patient Identification confirmed using: Name, : Yes Telehealth method: video Patient verbally consented to treatment: Yes Patient verbally consented to billing insurance company: Yes Patient informed of any privacy concerns related to visit: Yes Assessment & Plan Assessment & Plan (1) Encounter to discuss test results: Code(s): Z71.2 - Person consulting for explanation of examination or test findings Category: Medical Plan: Discussed with the patient the results of FSH/LH, estradiol and TSH. Explained to the patient that the levels are Not in the menopausal range. All questions answered, the patient verbalized understanding. I spent a total of 20 minutes reviewing the chart, talking to the patient via video and documenting in the medical record. Coding Level of Care Code Est Pt Level 1 (52204) Diagnoses Encounter to discuss test results Z71.2
== END 2024-02-10 12:11 | disposition home or self-care (01) ==
LOC: HO.HWS 10:31
PROVIDERS: PCP Nurse Practitioner Family; Visit Provider Obstetrics & Gynecology
DX: Z71.2 Person consulting for explanation of examination or test findings (principal)

== ENCOUNTER → 2024-02-10 10:31 | Outpatient (BNVA) | payer OTHER, SELFPAY | PROVIDERS: PCP Nurse Practitioner Family; Visit Provider Obstetrics & Gynecology | DX: E66.9 Obesity, unspecified (principal); Z68.30 Body mass index [BMI] 30.0-30.9, adult; Z71.3 Dietary counseling and surveillance; Z71.2 Person consulting for explanation of examination or test findings | CPT/HCPCS: 97802; 99211 ==

== ENCOUNTER 2024-02-10 13:21 | Outpatient (AMB) | payer OTHER, SELFPAY ==
[2024-02-10 13:29] VITALS: BMI 30.7
--- NOTE | 2024-02-10 13:29 | A.OFFVIS_ITS ---
VS Expanded 02/10/24 13:29 02/17/24 13:10 Height 5 ft 7 in 5 ft 7 in Weight 195 lb 12.328 oz 196 lb BMI 30.7 30.7 Intake Visit Reasons: Obesity/CONFIRMED Allergies metronidazole [From Flagyl] Allergy (Severe, Verified 02/16/24 08:22) Vomiting Nutrition Presentation Details: Pt presents for MNT for obesity Pt reports having hx of ibs with constipation. Reports having tried keeping track of macros utilizing a phone miguel in the past with little success food frequency fish - not including fruits: 1 /day yogurt/milk lactose free choices : 1- 2 /day eating out: 2x/wk starches > 30 /d ve x/wk B:bread with peanut butter, water fairlife prot + yogurt and fruit snack: nuts/fruits/crackers dinner:pasta/chicken/beef/cheese r pizza snack: cereal dry water per day 16 oz /d BS Monitoring Most Recent Diabetes Results: Cholesterol 161 mg/dL (<200) 01/21/24 HDL Cholesterol 64 mg/dL (>40) 01/21/24 Triglycerides 60 mg/dL (<150) 01/21/24 Creatinine 0.81 mg/dL (0.5-1.4) 01/21/24 Blood Urea Nitrogen 12 mg/dL (9-16) 01/21/24 Sodium 139 mmol/L (135-145) 01/21/24 Potassium 4.1 mmol/L (3.3-5.1) 01/21/24 Chloride 105 mmol/L (96-108) 01/21/24 Carbon Dioxide 25 mmol/L (22-29) 01/21/24 Calcium 9.2 mg/dL (8.4-10.2) 01/21/24 AST 17 U/L (5-31) 01/21/24 ALT 17 U/L (0-31) 01/21/24 Total Protein 7.1 g/dL (6.5-8.0) 01/21/24 Albumin 4.1 g/dL (3.5-5.0) 01/21/24 LVK-Ewvzucu-Kz.Jeor Equation Height: 5 ft 7 in Weight: 196 lb Resting Metabolic Rate: 1613.66 Calculated Activity Level: Sedentary Calories Needed to Maintain Weight: 1936.39 Diagnosis Nutrition problem #1: food nutri know defi As related to (etiology) #1: diagnosis As evidenced by (sign/symptom) #1: knowledge deficit of diet Monitoring/Goals Nutrition problem monitoring: level of knowledge/skill [facility] Medical History Anxiety and depression Fatty liver Discoid lupus ADHD (attention deficit hyperactivity disorder) OCD (obsessive compulsive disorder) Asthma GERD (gastroesophageal reflux disease) H/O LEEP (loop electrosurgical excision procedure) of cervix complicating History of nephrolithiasis Surgical History History of carpal tunnel surgery H/O esophagogastroduodenoscopy H/O colonoscopy S/P skin biopsy Family History Sister Colon cancer Paternal Grandfather Colon cancer Mother Breast CA Paternal Aunt Breast CA Paternal Grandmother Breast CA Social History Household Members: Family Alcohol intake: never Comment: all counts correct Patient Tobacco Use Status: Former Tobacco user Second Hand Smoke Exposure: No 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 & Plan Assessment & Plan (1) Obesity: Code(s): E66.9 - Obesity, unspecified Category: Medical Plan: Wt: 89Kg ( 03/11 ) Est kcal needs as per MSJ: 2000 (40% carb, 30% protein/fat) Est fluid needs as per 25-30 ml/d: 2700 Est prot per day as per 1 g/kg bw: 89 Recommend fiber intake : 8-10 g per day and gradually increase to 25-28 g per day for women and 35-38 g for men or as tolerated Recommend sodium intake per day : l less than 2300 mg Educated patient on: ( R = reviewed V = verbalizes understanding N/R = needs review N/A = not applicable * Food sources of carbohydrate, adequate serving sizes and its role in various health conditions: R * Differences between complex carbohydrates a simple carbohydrates, role of fiber in diet: R * Lean protein sources of foods: R * Differences between types of fats and role in diet (mono on saturated fat fatty acids, saturated fatty acids, trans fats): R * Food sources of sodium in salt and healthy modifications for heart health in kidney health: R V R/V * Vitamins and minerals: R V N/R * Healthy plate method concept: R * Physical activity: Benefits a precaution: R V N/R Patient Instructions: Work on following healthy plate method, reducing total carb to less than 60 g per meal Choose water with meals snacks ,r educing on sugars from [employer] Coding Level of Care Code Nutr Indiv Intake (18749) Diagnoses Obesity E66.9 Time Spent (min) 30
[2024-02-17 13:10] VITALS: BMI 30.7
== END 2024-02-10 14:08 | disposition home or self-care (01) ==
PROVIDERS: PCP Nurse Practitioner Family; Visit Provider Dietitian, Registered
DX: E66.9 Obesity, unspecified (principal)

== ENCOUNTER 2024-02-16 08:11 | Outpatient (AMB) | payer OTHER, SELFPAY ==
--- NOTE | 2024-02-16 08:21 | MHC.OFFVIS ---
Vital Signs 02/16/24 08:22 Height 5 ft 7 in Weight 194 lb 0.108 oz BMI 30.4 Intake Visit Reasons: STD Extension Agent Required: No Information Interpreted: non-clinical & clinical Medical Assisting Instructor: Medical Assisting Instructor Present (Trixie COLEMAN) Accompanied by: Self / Same As Patient Allergies metronidazole [From Flagyl] Allergy (Severe, Verified 02/16/24 08:22) Vomiting HPI Comments Details: The patient is complaining of vaginal discharge, clear to whitish, associated with burning and itching but no foul odor. It started few days ago ago. The patient has no other associated symptoms and is interested in STD screening [facility] Medical History Anxiety and depression Fatty liver Discoid lupus ADHD (attention deficit hyperactivity disorder) OCD (obsessive compulsive disorder) Asthma GERD (gastroesophageal reflux disease) H/O LEEP (loop electrosurgical excision procedure) of cervix complicating History of nephrolithiasis Surgical History History of carpal tunnel surgery H/O esophagogastroduodenoscopy H/O colonoscopy S/P skin biopsy Family History Sister Colon cancer Paternal Grandfather Colon cancer Mother Breast CA Paternal Aunt Breast CA Paternal Grandmother Breast CA Social History Household Members: Family Alcohol intake: never Comment: all counts correct Patient Tobacco Use Status: Former Tobacco user Second Hand Smoke Exposure: No 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 Review of Systems Const All systems reviewed & are unremarkable except as noted in HPI and below Physical Exam Vital Signs: BMI result Body Mass Index 30.4 General: Yes no CVA tenderness External Female Exam: normal external appearance and normal appearance of the urethra Speculum Exam - Vagina: normal appearance of the vagina, normal palpation, no lesions and no masses Speculum Exam - Cervix: normal appearance of the cervix, normal palpation, no lesions, no masses and nontender Bimanual exam- vagina & uterus: normal bimanual exam, normal palpation, uterine size normal, normal palpation, uterine shape normal, No Cervical tenderness present and non-tender Bimanual Exam- Adnexa, other: normal adnexae Back/Spine/Pelvis Back: no CVA tenderness Assessment & Plan Assessment & Plan (1) Vulvovaginitis: Code(s): N76.0 - Acute vaginitis Category: Medical Plan: GC/CT, Bacterial Vaginosis panel taken, Diflucan 150 mg x 1 was sent to the patient's pharmacy. The patient was instructed to call if symptoms don't improve in 48 hours. (2) Screen for STD (sexually transmitted disease): Code(s): Z11.3 - Encounter for screening for infections with a predominantly sexual mode of transmission Category: Medical Plan: STD screening tests done includes: BV panel for trichomonas, GC/CT will send patient for serology std screening for HIV, RPR, Hep b s Ag, HepC Ab. Instructions given the patient to schedule a follow-up appointment for repeat serology screen in 6 months for possible false negatives. Orders: Orders Hepatitis C Antibody Today Z20.2 - Contact with and (suspected) exposure to infections with a predominantly sexual mode of transmission HIV Ab/Ag Today Z20.2 - Contact with and (suspected) exposure to infections with a predominantly sexual mode of transmission Bacterial Vaginosis Panel Today N76.0 - Acute vaginitis, Z11.3 - Encounter for screening for infections with a predominantly sexual mode of transmission Hepatitis B Surface Antigen Today Z20.2 - Contact with and (suspected) exposure to infections with a predominantly sexual mode of transmission Syphilis Screen Today Z20.2 - Contact with and (suspected) exposure to infections with a predominantly sexual mode of transmission CT NG by PCR Today N76.0 - Acute vaginitis, Z11.3 - Encounter for screening for infections with a predominantly sexual mode of transmission Medications: New terconazole 0.8% 1 appful vaginal BEDTIME 3 days 20 grams 0RF Coding Level of Care Code Est Pt Level 3 (16591) Diagnoses Vulvovaginitis N76.0 Screen for STD (sexually transmitted disease) Z11.3
[2024-02-16 08:22] VITALS: BMI 30.4
== END 2024-02-16 08:35 | disposition home or self-care (01) ==
LOC: HO.HWS 08:11
PROVIDERS: PCP Nurse Practitioner Family; Visit Provider Obstetrics & Gynecology
DX: N76.0 Acute vaginitis (principal); Z11.3 Encounter for screening for infections with a predominantly sexual mode of transmission
CPT/HCPCS: 99213

== ENCOUNTER 2024-02-16 08:11 | Outpatient (REF) | payer OTHER, SELFPAY ==
[2024-02-16 15:43] LABS: Bacterial Vaginosis PCR NEGATIVE (Negative); Candida Group PCR DETECTED (Not Detect); Candida glab krusei PCR NOT DETECTED (Not Detect); Trichomonas vaginalis PCR NOT DETECTED (Not Detect)
== END 2024-02-16 08:12 | disposition home or self-care (01) ==
LOC: HO.LNP 08:11
PROVIDERS: PCP Nurse Practitioner Family; Visit Provider Obstetrics & Gynecology
DX: N76.0 Acute vaginitis (principal)
CPT/HCPCS: 0352U

== ENCOUNTER 2024-02-16 08:36 | Outpatient (REF) | payer OTHER, SELFPAY ==
[2024-02-16 10:05] LABS: HBsAGNum1 0.35 S/CO (0.00-0.99); HIV AB/AG Nonreactive (Nonreactive); HIV Num 1 0.04 S/CO (0.00-0.99); Hepatitis B Surface Antigen Negative (Negative); Syphilis Screen Nonreactive (Nonreactive); ~HepC Num1 0.11 S/CO (0.00-0.79); ~Hepatitis C Antibody Nonreactive (Nonreactive)
[2024-02-16 14:59] LABS: CT PCR NOT DETECTED (Not Detect.); NG PCR NOT DETECTED (Not Detect.)
== END 2024-02-16 08:37 | disposition home or self-care (01) ==
LOC: HO.LAB 08:36
PROVIDERS: PCP Nurse Practitioner Family; Visit Provider Obstetrics & Gynecology
DX: Z11.3 Encounter for screening for infections with a predominantly sexual mode of transmission (principal); Z20.2 Contact with and (suspected) exposure to infections with a predominantly sexual mode of transmission; N76.0 Acute vaginitis
CPT/HCPCS: 86780; 86803; 87340; 87389; 87491; 87591

== ENCOUNTER 2024-03-22 08:53 | Outpatient (AMB) | payer OTHER, SELFPAY ==
--- NOTE | 2024-03-22 09:01 | MHC.OFFVIS ---
Vital Signs 03/22/24 09:04 Height 5 ft 7 in Weight 191 lb 6 oz BMI 30.0 Intake Visit Reasons: 6 week follow up genetic testing Intake Note: Patient is seen in office for genetic testing results. Pt c/o: no changes since last visit, here for results Community Development Officer Required: No Accompanied by: Self / Same As Patient Allergies metronidazole [From Flagyl] Allergy (Severe, Verified 03/22/24 09:04) Vomiting HPI Comments Details: Patient presents for follow-up status post genetic testing which demonstrated positivity for BRCA2 gene. Patient was evaluated along with Bill OR nurse coordinator regarding the results which were discussed. Patient will be referred to genetic testing at [facility]. She can also call the genetic testing company for questions. In the meantime, patient has no new breast issues or complaints. She is being followed by department chair duct regarding her ovaries. [facility] Medical History Anxiety and depression Fatty liver Discoid lupus ADHD (attention deficit hyperactivity disorder) OCD (obsessive compulsive disorder) Asthma GERD (gastroesophageal reflux disease) H/O LEEP (loop electrosurgical excision procedure) of cervix complicating History of nephrolithiasis Surgical History History of carpal tunnel surgery H/O esophagogastroduodenoscopy H/O colonoscopy S/P skin biopsy Family History Sister Colon cancer Paternal Grandfather Colon cancer Mother Breast CA Paternal Aunt Breast CA Paternal Grandmother Breast CA Social History Household Members: Family Alcohol intake: never Comment: all counts correct Patient Tobacco Use Status: Former Tobacco user Second Hand Smoke Exposure: No 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 Six months from that she will be eligible for breast MRI and the 2-0 be alternated. Patient was encouraged to do self-breast exams. She will see me as directed or p.r.n.. All questions answered. Coding Level of Care Code Tele New Pt Level 4 (63465) Diagnoses Encounter for nonprocreative genetic counseling Z71.83
== END 2024-03-22 09:12 | disposition home or self-care (01) ==
LOC: HO.HGS 08:53
PROVIDERS: PCP Nurse Practitioner Family; Visit Provider Surgery
DX: Z71.83 Encounter for nonprocreative genetic counseling (principal)
CPT/HCPCS: 99213

== ENCOUNTER → 2024-03-22 08:53 | Outpatient (BNVA) | payer OTHER, SELFPAY | PROVIDERS: PCP Nurse Practitioner Family; Visit Provider Surgery ==

== ENCOUNTER 2024-03-29 08:24 | Outpatient (AMB) | payer OTHER, SELFPAY ==
[2024-03-29 08:35] VITALS: BMI 29.3
--- NOTE | 2024-03-29 08:35 | A.OFFVIS_ITS ---
VS Expanded 03/29/24 08:35 Height 5 ft 7 in Weight 187 lb 2.759 oz BMI 29.3 Intake Visit Reasons: obesity Allergies metronidazole [From Flagyl] Allergy (Severe, Verified 03/22/24 09:04) Vomiting Nutrition Presentation Details: Pt presents for MNT for obesity Pt reports working on diet modifications, feeling good Pt has lactose intolerance BS Monitoring Most Recent Diabetes Results: Cholesterol 161 mg/dL (<200) 01/21/24 HDL Cholesterol 64 mg/dL (>40) 01/21/24 Triglycerides 60 mg/dL (<150) 01/21/24 Creatinine 0.81 mg/dL (0.5-1.4) 01/21/24 Blood Urea Nitrogen 12 mg/dL (9-16) 01/21/24 Sodium 139 mmol/L (135-145) 01/21/24 Potassium 4.1 mmol/L (3.3-5.1) 01/21/24 Chloride 105 mmol/L (96-108) 01/21/24 Carbon Dioxide 25 mmol/L (22-29) 01/21/24 Calcium 9.2 mg/dL (8.4-10.2) 01/21/24 AST 17 U/L (5-31) 01/21/24 ALT 17 U/L (0-31) 01/21/24 Total Protein 7.1 g/dL (6.5-8.0) 01/21/24 Albumin 4.1 g/dL (3.5-5.0) 01/21/24 [facility] Medical History Anxiety and depression Fatty liver Discoid lupus ADHD (attention deficit hyperactivity disorder) OCD (obsessive compulsive disorder) Asthma GERD (gastroesophageal reflux disease) H/O LEEP (loop electrosurgical excision procedure) of cervix complicating History of nephrolithiasis Surgical History History of carpal tunnel surgery H/O esophagogastroduodenoscopy H/O colonoscopy S/P skin biopsy Family History Sister Colon cancer Paternal Grandfather Colon cancer Mother Breast CA Paternal Aunt Breast CA Paternal Grandmother Breast CA Social History Household Members: Family Alcohol intake: never Comment: all counts correct Patient Tobacco Use Status: Former Tobacco user Second Hand Smoke Exposure: No 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 & 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 Assessment & Plan (1) Obesity: Code(s): E66.9 - Obesity, unspecified Category: Medical Plan: Wt: 89Kg ( 03/11 ), 85 kg (04/11) Est kcal needs as per MSJ: 2000 (40% carb, 30% protein/fat) Est fluid needs as per 25-30 ml/d: 2700 Est prot per day as per 1 g/kg bw: 89 Recommend fiber intake : 8-10 g per day and gradually increase to 25-28 g per day for women and 35-38 g for men or as tolerated Recommend sodium intake per day : l less than 2300 mg Educated patient on: ( R = reviewed V = verbalizes understanding N/R = needs review N/A = not applicable * Food sources of carbohydrate, adequate serving sizes and its role in various health conditions: R * Differences between complex carbohydrates a simple carbohydrates, role of fiber in diet: R * Lean protein sources of foods: R * Differences between types of fats and role in diet (mono on saturated fat fatty acids, saturated fatty acids, trans fats): R * Food sources of sodium in salt and healthy modifications for heart health in kidney health: R V R/V * Vitamins and minerals: R * lactose intolerance diet concepts ; R * healthy eating concepts during Holiday/celebrations: R * Healthy plate method concept: R * Physical activity: Benefits a precaution: R Patient Instructions: Choose lactose /dairy free foods options at restaurants Coding Level of Care Code Nutr Indiv Subseq (21450) Diagnoses Obesity E66.9 Time Spent (min) 20
== END 2024-03-29 10:25 | disposition home or self-care (01) ==
PROVIDERS: PCP Nurse Practitioner Family; Visit Provider Dietitian, Registered
DX: E66.9 Obesity, unspecified (principal)

== ENCOUNTER → 2024-03-29 08:24 | Outpatient (BNVA) | payer OTHER, SELFPAY | PROVIDERS: PCP Nurse Practitioner Family; Visit Provider Dietitian, Registered | DX: E66.9 Obesity, unspecified (principal); Z68.29 Body mass index [BMI] 29.0-29.9, adult; Z71.3 Dietary counseling and surveillance | CPT/HCPCS: 97803 ==

== ENCOUNTER 2024-04-01 08:43 | Outpatient (REF) | payer OTHER, SELFPAY ==
[2024-04-02 04:52] LABS: CT PCR NOT DETECTED (Not Detect.); NG PCR NOT DETECTED (Not Detect.)
[2024-04-02 09:52] LABS: Bacterial Vaginosis PCR NEGATIVE (Negative); Candida Group PCR NOT DETECTED (Not Detect); Candida glab krusei PCR NOT DETECTED (Not Detect); Trichomonas vaginalis PCR NOT DETECTED (Not Detect)
== END 2024-04-01 08:44 | disposition home or self-care (01) ==
LOC: HO.LNP 08:43
PROVIDERS: PCP Nurse Practitioner Family; Visit Provider Obstetrics & Gynecology
DX: N76.0 Acute vaginitis (principal)
CPT/HCPCS: 0352U; 87491; 87591

== ENCOUNTER 2024-04-01 08:43 | Outpatient (AMB) | payer OTHER, SELFPAY ==
[2024-04-01 08:45] VITALS: BMI 29.0
--- NOTE | 2024-04-01 08:45 | A.OFFVIS_ITS ---
Vital Signs 04/01/24 08:45 04/01/24 08:47 Height 5 ft 7 in Weight 185 lb 3.013 oz BMI 29.0 BP 120/82 Intake Visit Reasons: vaginal discharge Finance Accounting Internship: Finance Accounting Internship Present (Kirsten) Accompanied by: Self / Same As Patient Allergies metronidazole [From Flagyl] Allergy (Severe, Verified 04/01/24 08:48) Vomiting HPI Comments Details: Presenting complaining of vulvovaginal burning. The patient had vulvovaginal itching IUD week ago was treated with Terazol 0.8% q.h.s. for 3 days, itching has improved but the patient is still complaining of residual vulvovaginal burning no vaginal discharge or odor [facility] Medical History Anxiety and depression Fatty liver Discoid lupus ADHD (attention deficit hyperactivity disorder) OCD (obsessive compulsive disorder) Asthma GERD (gastroesophageal reflux disease) H/O LEEP (loop electrosurgical excision procedure) of cervix complicating History of nephrolithiasis Surgical History History of carpal tunnel surgery H/O esophagogastroduodenoscopy H/O colonoscopy S/P skin biopsy Family History Sister Colon cancer Paternal Grandfather Colon cancer Mother Breast CA Paternal Aunt Breast CA Paternal Grandmother Breast CA Social History Household Members: Family Alcohol intake: never Comment: all counts correct Patient Tobacco Use Status: Former Tobacco user Second Hand Smoke Exposure: No 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 Review of Systems Const All systems reviewed & are unremarkable except as noted in HPI and below Physical Exam General: Yes no CVA tenderness External Female Exam: normal external appearance and normal appearance of the urethra Speculum Exam - Vagina: normal appearance of the vagina, normal palpation, no lesions and no masses Speculum Exam - Cervix: normal appearance of the cervix, normal palpation, no lesions, no masses and nontender Bimanual exam- vagina & uterus: normal bimanual exam, normal palpation, uterine size normal, normal palpation, uterine shape normal, No Cervical tenderness present and non-tender Bimanual Exam- Adnexa, other: normal adnexae Back/Spine/Pelvis Back: no CVA tenderness Assessment & Plan Assessment & Plan (1) Vulvovaginitis: Code(s): N76.0 - Acute vaginitis Category: Medical Plan: GC/CT with BV panel collected. Will check the results and treat accordingly. All questions answered, the patient verbalized understanding. Orders: Orders CT NG by PCR Today N76.0 - Acute vaginitis Bacterial Vaginosis Panel Today N76.0 - Acute vaginitis Coding Level of Care Code Est Pt Level 3 (56276) Diagnoses Vulvovaginitis N76.0
[2024-04-01 08:47] VITALS: BP 120/82
== END 2024-04-01 08:56 | disposition home or self-care (01) ==
LOC: HO.HWS 08:43
PROVIDERS: PCP Nurse Practitioner Family; Visit Provider Obstetrics & Gynecology
DX: N76.0 Acute vaginitis (principal)
CPT/HCPCS: 99213

== ENCOUNTER 2024-04-09 13:19 | Outpatient (REF) | payer OTHER, SELFPAY ==
--- NOTE | ~2024-04-09 | US_ITS ---
EXAMINATION: US PELVIC AND TRANSVAGINAL CLINICAL INFORMATION: Complex ovarian cyst. LMP 04/08/2024. COMPARISON: Most recent pelvic ultrasound dated 12/23/2023. TECHNIQUE: Ultrasound of the pelvis is performed using both transabdominal and transvaginal transducers along with Doppler. Transvaginal imaging is performed due to inadequate visualization transabdominally. FINDINGS: UTERUS: The uterus is anteverted and measures 8.3 x 3.2 x 4.6 cm. Nabothian cysts are identified. There are mildly prominent vessels within the right pelvis, which could indicate a degree of pelvic congestion. The double wall endometrial thickness is 0.4 mm. The uterus is smooth in contour and has normal myometrial echogenicity. No visible fibroid. ADNEXA: Both ovaries are visualized. There is normal color flow to the adnexa. There is no ovarian torsion.There is no pelvic ascites or fluid collection. Right ovary measures 3.3 x 2 x 2.3 cm. Right ovarian volume of 8 mL. Simple right ovarian follicle measuring up to 1.9 cm. No complex cyst identified. Left ovary measures 2.9 x 1.3 x 1.7 cm. Left ovarian volume of 3.4 mL. US/US pelvic and transvaginal IMPRESSION: 1. Simple right ovarian follicle measuring up to 1.9 cm. No complex right ovarian cyst. 2. Mildly prominent right pelvic vessels which could indicate a degree of pelvic congestion. 3. Sonographically unremarkable left ovary. 4. Sonographically unremarkable uterus and endometrium. Electronically signed by: Yovanny Malcolm MD 04/11/2024 06:43 PM [facility]
== END 2024-04-09 13:20 | disposition home or self-care (01) ==
LOC: HO.US 13:19
PROVIDERS: PCP Nurse Practitioner Family; Visit Provider Obstetrics & Gynecology
DX: N83.299 Other ovarian cyst, unspecified side (principal)
CPT/HCPCS: 76830; 76856

== ENCOUNTER 2024-05-04 08:28 | Outpatient (AMB) | payer OTHER, SELFPAY ==
--- NOTE | 2024-05-04 08:34 | MHC.OFFVIS ---
Intake Visit Reasons: US follow up Certified Substance Abuse Counselor: Certified Substance Abuse Counselor Present (Kirsten) Accompanied by: Self / Same As Patient Allergies metronidazole [From Flagyl] Allergy (Severe, Verified 04/01/24 08:48) Vomiting HPI Comments Details: Presenting for pelvic ultrasound follow-up regarding complex ovarian cyst previously identified on ultrasound in 01/09. Ultrasound done 04/11 showed the following: IMPRESSION: 1. Simple right ovarian follicle measuring up to 1.9 cm. No complex right ovarian cyst. 2. Mildly prominent right pelvic vessels which could indicate a degree of pelvic congestion. 3. Sonographically unremarkable left ovary. 4. Sonographically unremarkable uterus and endometrium. [facility] Medical History Anxiety and depression Fatty liver Discoid lupus ADHD (attention deficit hyperactivity disorder) OCD (obsessive compulsive disorder) Asthma GERD (gastroesophageal reflux disease) H/O LEEP (loop electrosurgical excision procedure) of cervix complicating History of nephrolithiasis Surgical History History of carpal tunnel surgery H/O esophagogastroduodenoscopy H/O colonoscopy S/P skin biopsy Family History Sister Colon cancer Paternal Grandfather Colon cancer Mother Breast CA Paternal Aunt Breast CA Paternal Grandmother Breast CA Social History Household Members: Family Alcohol intake: never Comment: all counts correct Patient Tobacco Use Status: Former Tobacco user Second Hand Smoke Exposure: No 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 The patient was instructed to call if symptoms recur. All questions were answered the patient verbalized understanding. Coding Level of Care Code Est Pt Level 3 (88284) Diagnoses Complex ovarian cyst N83.299
== END 2024-05-04 08:40 | disposition home or self-care (01) ==
LOC: HO.HWS 08:28
PROVIDERS: PCP Nurse Practitioner Family; Visit Provider Obstetrics & Gynecology
DX: N83.299 Other ovarian cyst, unspecified side (principal)
CPT/HCPCS: 99213

== ENCOUNTER 2024-06-10 13:54 | Outpatient (REF) | payer OTHER, SELFPAY ==
--- NOTE | ~2024-06-10 | MM_ITS ---
EXAMINATION: MM DIAGNOSTIC DIGITAL BREAST TOMOSYNTHESIS, BILATERAL CLINICAL INFORMATION: 1 year follow-up for focal asymmetry in the upper outer right breast without prior sonographic correlate. Patient is BRCA Positive. COMPARISON: Mammography: Comparison is made with relevant prior exams. TECHNIQUE: Digital breast mammography with tomosynthesis is performed in both the craniocaudal and mediolateral oblique views along with computer-aided detection (CAD). FINDINGS: There are scattered areas of fibroglandular density (ACR BI-RADS breast composition Category b). Left: There are no significant masses, abnormal calcifications, or other abnormalities. Right: Focal asymmetry upper outer breast posterior depth without prior sonographic correlate is not significantly changed from prior mammography back to April 2023 the prior ultrasound was normal. Oval lymph node in the lateral breast on CC view stable. No suspicious calcifications or other abnormal findings. Results are discussed with the patient at time of visit. MM/MM tomosynthesis diagnostic BI IMPRESSION: Left: Negative. Right: Focal asymmetry upper outer breast posterior depth without sonographic correlate not significantly changed back to March 2023. Recommend diagnostic follow-up in one year when the patient is due for bilateral mammography to demonstrate 2 years of stability. Patient is BRCA positive. Consider breast MRI screening surveillance. ASSESSMENT: BI-RADS BI-RADS 3 - Probably benign finding(s) - 12 month follow-up suggested RECOMMENDATION: 12 month diagnostic follow up This patient's information was entered into a reminder system with a target due date for their next mammogram. Electronically signed by: Nika Mason DO 06/10/2024 02:42 PM [facility]
== END 2024-06-10 13:55 | disposition home or self-care (01) ==
LOC: HO.MAMMO 13:54
PROVIDERS: PCP Nurse Practitioner Family; Visit Provider Nurse Practitioner Family
DX: R92.30 Dense breasts, unspecified (principal)
CPT/HCPCS: 77062; 77066

== ENCOUNTER → 2024-06-10 14:00 | Outpatient (BNV) | payer OTHER, SELFPAY | PROVIDERS: PCP Nurse Practitioner Family; Visit Provider Internal Medicine | DX: N64.89 Other specified disorders of breast (principal) | CPT/HCPCS: 77062; 77066 ==

== ENCOUNTER 2024-06-21 08:47 | Outpatient (AMB) | payer OTHER, SELFPAY ==
--- NOTE | 2024-06-21 08:52 | A.OFFVIS_ITS ---
Vital Signs 06/21/24 08:53 Height 5 ft 7 in Weight 180 lb BMI 28.2 BP 142/71 H Blood Pressure Location Rt brachial Position Sitting Pulse 95 Intake Visit Reasons: Mammo results Intake Note: Patient here to discuss mammogram results. Patient c/o: no concerns. Denies lumps, nipple discharge, rash on breasts. Reports no changes in medical hx. Mammo~ 06-10-2024 Repairer Welding Systems And Equipment Required: No Accompanied by: Self / Same As Patient Allergies metronidazole [From Flagyl] Allergy (Severe, Verified 06/21/24 08:54) Vomiting HPI Comments Details: Patient has no breast issues or complaints. She does not regularly do breast exams with although she as noted above has no breast problems. Mammogram within normal limits PFSH Medical History Anxiety and depression Fatty liver Discoid lupus ADHD (attention deficit hyperactivity disorder) OCD (obsessive compulsive disorder) Asthma GERD (gastroesophageal reflux disease) H/O LEEP (loop electrosurgical excision procedure) of cervix complicating History of nephrolithiasis Surgical History History of carpal tunnel surgery H/O esophagogastroduodenoscopy H/O colonoscopy S/P skin biopsy Family History Sister Colon cancer Paternal Grandfather Colon cancer Mother Breast CA Paternal Aunt Breast CA Paternal Grandmother Breast CA Social History Household Members: Family Alcohol intake: never Comment: all counts correct Patient Tobacco Use Status: Former Tobacco user Second Hand Smoke Exposure: No 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 No periclavicular cervical or axillary adenopathy bilaterally. GI Other: Abdomen mild corpulent, soft, benign Assessment & Plan Assessment & Plan (1) BRCA2 gene mutation positive in female: Code(s): Z15.01 - Genetic susceptibility to malignant neoplasm of breast; Z15.02 - Genetic susceptibility to malignant neoplasm of ovary; Z15.09 - Genetic susceptibility to other malignant neoplasm Category: Surgical Plan: Because patient IS BR Ca 2 positive, she will be alternating six-month mammogram with MRIs. She will have a six-month MRI of the breasts and will see me after that study. All questions answered. She is encouraged to do self-breast exams. Orders: Orders MR breast BI wo/w con 6 Months Z15.01 - Genetic susceptibility to malignant neoplasm of breast, Z15.02 - Genetic susceptibility to malignant neoplasm of ovary, Z15.09 - Genetic susceptibility to other malignant neoplasm Coding Level of Care Code Est Pt Level 4 (87467) Diagnoses BRCA2 gene mutation positive in female Z15.01; Z15.02; Z15.09
[2024-06-21 08:53] VITALS: BP 142/71; PULSE 95; BMI 28.2
== END 2024-06-21 08:59 | disposition home or self-care (01) ==
PROVIDERS: PCP Nurse Practitioner Family; Visit Provider Surgery
DX: Z15.01 Genetic susceptibility to malignant neoplasm of breast (principal); Z15.02 Genetic susceptibility to malignant neoplasm of ovary; Z15.09 Genetic susceptibility to other malignant neoplasm
CPT/HCPCS: 99214

== ENCOUNTER → 2024-06-21 08:47 | Outpatient (BNVA) | payer OTHER, SELFPAY | PROVIDERS: PCP Nurse Practitioner Family; Visit Provider Surgery ==

== ENCOUNTER 2024-07-06 10:25 | Outpatient (AMB) | payer OTHER, SELFPAY ==
[2024-07-06 10:29] VITALS: BMI 28.2
--- NOTE | 2024-07-06 10:29 | A.OFFVIS_ITS ---
Vital Signs 07/06/24 10:29 Height 5 ft 7 in Weight 180 lb BMI 28.2 Intake Visit Reasons: vaginal itching Factory Maintenance Technician Required: No Information Interpreted: non-clinical & clinical Concrete Mixer Truck Driver: Concrete Mixer Truck Driver Present (Trixie COLEMAN) Accompanied by: Self / Same As Patient Allergies metronidazole [From Flagyl] Allergy (Severe, Verified 07/06/24 10:32) Vomiting HPI Comments Details: Presenting complaining of vulvovaginal itching few days ago that resolved after using vinegar and water , no remaining symptoms of vaginal discharge or odor [facility] Medical History Anxiety and depression Fatty liver Discoid lupus ADHD (attention deficit hyperactivity disorder) OCD (obsessive compulsive disorder) Asthma GERD (gastroesophageal reflux disease) H/O LEEP (loop electrosurgical excision procedure) of cervix complicating History of nephrolithiasis Surgical History History of carpal tunnel surgery H/O esophagogastroduodenoscopy H/O colonoscopy S/P skin biopsy Family History Sister Colon cancer Paternal Grandfather Colon cancer Mother Breast CA Paternal Aunt Breast CA Paternal Grandmother Breast CA Social History Household Members: Family Alcohol intake: never Comment: all counts correct Patient Tobacco Use Status: Former Tobacco user Second Hand Smoke Exposure: No 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 Review of Systems Const All systems reviewed & are unremarkable except as noted in HPI and below Physical Exam Vital Signs: BMI result Body Mass Index 28.2 General: Yes no CVA tenderness External Female Exam: normal external appearance and normal appearance of the urethra Speculum Exam - Vagina: normal appearance of the vagina, normal palpation, no lesions and no masses Speculum Exam - Cervix: normal appearance of the cervix, normal palpation, no lesions, no masses and nontender Bimanual exam- vagina & uterus: normal bimanual exam, normal palpation, uterine size normal, normal palpation, uterine shape normal, No Cervical tenderness present and non-tender Bimanual Exam- Adnexa, other: normal adnexae Back/Spine/Pelvis Back: no CVA tenderness Assessment & Plan Assessment & Plan (1) Vulvovaginal itching: Code(s): L29.2 - Pruritus vulvae Category: Medical Plan: GC/CT with BV panel collected. Will check the results and treat accordingly. Instructions given to patient to call in case symptoms recur. All questions answered, the patient verbalized understanding Coding Level of Care Code Est Pt Level 3 (47019) Diagnoses Vulvovaginal itching L29.2
== END 2024-07-06 10:45 | disposition home or self-care (01) ==
LOC: HO.HWS 10:25
PROVIDERS: PCP Nurse Practitioner Family; Visit Provider Obstetrics & Gynecology
DX: L29.2 Pruritus vulvae (principal)
CPT/HCPCS: 99213

== ENCOUNTER 2024-07-06 10:25 | Outpatient (REF) | payer OTHER, SELFPAY ==
[2024-07-06 16:26] LABS: Bacterial Vaginosis PCR NEGATIVE (Negative); Candida Group PCR DETECTED (Not Detect); Candida glab krusei PCR NOT DETECTED (Not Detect); Trichomonas vaginalis PCR NOT DETECTED (Not Detect)
[2024-07-06 16:57] LABS: CT PCR NOT DETECTED (Not Detect.); NG PCR NOT DETECTED (Not Detect.)
== END 2024-07-06 10:26 | disposition home or self-care (01) ==
LOC: HO.LNP 10:25
PROVIDERS: PCP Nurse Practitioner Family; Visit Provider Obstetrics & Gynecology
DX: L29.2 Pruritus vulvae (principal)
CPT/HCPCS: 81515; 87491; 87591

== ENCOUNTER 2024-07-26 12:48 | Outpatient (REF) | payer OTHER, SELFPAY ==
[2024-07-26 13:05] LABS: MANUAL DIFF FLAG NO
[2024-07-26 14:06] LABS: Basophils Percent Auto 0.6 % (0-2); Eosinophils Percent Auto 0.6 % (0-4); Hematocrit 38.6 % (37.0-47.0); Hemoglobin 12.6 g/dl (12.0-16.0); Imm Gran Abs Auto 0.02 X10*3/uL (0.00-0.03); Imm Gran Pct Auto 0.3 % (0.0-0.4); Lymphocytes Absolute Auto 1.9 X10*3/uL (1.2-4.9); Lymphocytes Percent Auto 27.1 % (20-40); Mean Corpuscular HGB Conc 32.6 g/dl (31.0-35.0); Mean Corpuscular Hemoglobin 30.1 pg (27.0-33.0); Mean Corpuscular Volume 92.3 fL (80.0-98.0); Mean Platelet Volume 9.5 fL (9.4-12.3); Monocytes Absolute Auto 0.5 X10*3/uL (0.1-1.2); Monocytes Percent Auto 6.7 % (2-11); Neutrophils Absolute Auto 4.5 x10*3/uL (2.0-8.3); Neutrophils Percent Auto 64.7 % (45-73); Platelet Count 343 X10*3/uL (160-400); Red Blood Count 4.18 X10*6/uL (4.20-5.50); Red Cell Distribution Width 12.6 % (11.0-16.0); White Blood Count 6.9 X10*3/uL (4.8-10.8)
[2024-07-26 14:53] LABS: Alanine Aminotransferase 17 U/L (0-31); Albumin Level 4.4 g/dL (3.5-5.0); Alkaline Phosphatase 78 U/L (39-117); Anion Gap 14 (12-20); Aspartate Amino Transferase 20 U/L (5-31); Bilirubin Total 0.5 mg/dL (0.0-1.0); Blood Urea Nitrogen 14 mg/dL (9-16); Calcium 9.3 mg/dL (8.4-10.2); Carbon Dioxide 26 mmol/L (22-29); Chloride 105 mmol/L (96-108); Estimated Glomerular Filt Rate > 60; Glucose Random 80 mg/dL (60-115); Sodium 140 mmol/L (135-145)
== END 2024-07-26 12:49 | disposition home or self-care (01) ==
LOC: HO.LAB 12:48
PROVIDERS: PCP Nurse Practitioner Family; Visit Provider Physician Assistant
DX: Z79.899 Other long term (current) drug therapy (principal)
CPT/HCPCS: 36415; 80053; 85025

== ENCOUNTER 2024-09-02 08:44 | Outpatient (REF) | payer OTHER, SELFPAY ==
[2024-09-03 12:17] LABS: CT PCR NOT DETECTED (Not Detect.); NG PCR NOT DETECTED (Not Detect.)
[2024-09-03 16:18] LABS: Bacterial Vaginosis PCR NEGATIVE (Negative); Candida Group PCR DETECTED (Not Detect); Candida glab krusei PCR NOT DETECTED (Not Detect); Trichomonas vaginalis PCR NOT DETECTED (Not Detect)
== END 2024-09-02 08:45 | disposition home or self-care (01) ==
LOC: HO.LNP 08:44
PROVIDERS: PCP Nurse Practitioner Family; Visit Provider Obstetrics & Gynecology
DX: L29.2 Pruritus vulvae (principal); N90.89 Other specified noninflammatory disorders of vulva and perineum
CPT/HCPCS: 81515; 87491; 87591

== ENCOUNTER 2024-09-02 08:44 | Outpatient (AMB) | payer OTHER, SELFPAY ==
[2024-09-02 08:45] VITALS: BMI 28.2
--- NOTE | 2024-09-02 08:45 | MHC.OFFVIS ---
Vital Signs 09/02/24 08:45 Height 5 ft 7 in Weight 180 lb BMI 28.2 Intake Visit Reasons: vaginal itching Electronic Tech Required: No Information Interpreted: non-clinical & clinical Conveyor Tender: Conveyor Tender Present (Trixie COLEMAN) Accompanied by: Self / Same As Patient Allergies metronidazole [From Flagyl] Allergy (Severe, Verified 09/02/24 08:46) Vomiting HPI Comments Details: Presenting with mild vulvovaginal irritation with no associated vaginal discharge or odor The patient had 2 positive Lolis PCR in 02/09 and 07/13 [facility] Medical History Anxiety and depression Fatty liver Discoid lupus ADHD (attention deficit hyperactivity disorder) OCD (obsessive compulsive disorder) Asthma GERD (gastroesophageal reflux disease) H/O LEEP (loop electrosurgical excision procedure) of cervix complicating History of nephrolithiasis Surgical History History of carpal tunnel surgery H/O esophagogastroduodenoscopy H/O colonoscopy S/P skin biopsy Family History Sister Colon cancer Paternal Grandfather Colon cancer Mother Breast CA Paternal Aunt Breast CA Paternal Grandmother Breast CA Social History Household Members: Family Alcohol intake: never Comment: all counts correct Patient Tobacco Use Status: Former Tobacco user Second Hand Smoke Exposure: No 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 Female Reproductive History Menstrual Date of last menstrual period: 08/15/24 Review of Systems Const All systems reviewed & are unremarkable except as noted in HPI and below Physical Exam Vital Signs: BMI result Body Mass Index 28.2 General: Yes no CVA tenderness External Female Exam: normal external appearance and normal appearance of the urethra Speculum Exam - Vagina: normal appearance of the vagina, normal palpation, no lesions and no masses Speculum Exam - Cervix: normal appearance of the cervix, normal palpation, no lesions, no masses and nontender Bimanual exam- vagina & uterus: normal bimanual exam, normal palpation, uterine size normal, normal palpation, uterine shape normal, No Cervical tenderness present and non-tender Bimanual Exam- Adnexa, other: normal adnexae Back/Spine/Pelvis Back: no CVA tenderness Assessment & Plan Assessment & Plan (1) Vulvar irritation: Code(s): N90.89 - Other specified noninflammatory disorders of vulva and perineum Category: Medical Plan: GC/CT with BV panel collected. If positive for Lolis will treat for 7-14 days of topical therapy. All questions answered, the patient verbalized understanding Coding Level of Care Code Est Pt Level 3 (49030) Diagnoses Vulvar irritation N90.89
== END 2024-09-02 09:01 | disposition home or self-care (01) ==
LOC: HO.HWS 08:44
PROVIDERS: PCP Nurse Practitioner Family; Visit Provider Obstetrics & Gynecology
DX: N90.89 Other specified noninflammatory disorders of vulva and perineum (principal)
CPT/HCPCS: 99213

== ENCOUNTER 2024-09-27 13:06 | Outpatient (AMB) | payer OTHER, SELFPAY ==
--- NOTE | 2024-09-27 13:32 | A.OFFVIS_ITS ---
Vital Signs 09/27/24 13:36 Height 5 ft 7 in Weight 180 lb BMI 28.2 BP 132/80 Intake Visit Reasons: CHIEF CLINICAL OFFICER annual exam Cardiac Rehabilitation Specialist Required: No Information Interpreted: non-clinical & clinical Director Of Front Office: Director Of Front Office Present (Trixie COLEMAN) Accompanied by: Self / Same As Patient Allergies metronidazole [From Flagyl] Allergy (Severe, Verified 09/27/24 13:36) Vomiting HPI Comments Details: Presenting for annual exam. No complaints. Requesting STD screening Last Pap/HPV was negative in 09/09 [facility] Medical History Anxiety and depression Fatty liver Discoid lupus ADHD (attention deficit hyperactivity disorder) OCD (obsessive compulsive disorder) Asthma GERD (gastroesophageal reflux disease) H/O LEEP (loop electrosurgical excision procedure) of cervix complicating History of nephrolithiasis Surgical History History of carpal tunnel surgery H/O esophagogastroduodenoscopy H/O colonoscopy S/P skin biopsy Family History Sister Colon cancer Paternal Grandfather Colon cancer Mother Breast CA Paternal Aunt Breast CA Paternal Grandmother Breast CA Social History Household Members: Family Alcohol intake: never Comment: all counts correct Patient Tobacco Use Status: Former Tobacco user Second Hand Smoke Exposure: No 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 Female Reproductive History Menstrual Date of last pap smear: 09/02/23 Review of Systems Const All systems reviewed & are unremarkable except as noted in HPI and below Card Reports as per HPI Resp Reports as per HPI GI Reports as per HPI and Reports no additional complaints Reports as per HPI Physical Exam Vital Signs: Last Vital Signs BP 132/80 09/27/24 13:36 BMI result Body Mass Index 28.2 Const General: cooperative, healthy appearing and comfortable Chest Chest palpation & inspection: normal inspection of the chest and normal palpati on of entire chest wall Breast/axilla inspection: normal inspection of the breasts and normal inspection of the axillae Breast/axilla palpation: normal palpation of the breasts, normal palpation of the axillae and no axillary lymphadenopathy Resp Effort & Inspection: normal respiratory effort Auscultation: clear to auscultation bilaterally Percussion: percussion normal Cardio Palpation: normal PMI Rate: regular rate Rhythm: regular rhythm Heart sounds: no murmurs and no rubs Peripheral pulses: Peripheral pulses 2+ throughout GI Inspection: Yes normal to inspection Palpation (GI): Soft to palpation, nontender, no guarding, not rigid and No hepatosplenomegaly present Percussion: Yes normal to percussion Auscultation: normal bowel sounds Rectal Exam - Female: deferred General: Yes bladder normal to palpation External Female Exam: No lesion Speculum Exam - Vagina: normal appearance of the vagina, normal palpation, normal vaginal discharge and not erythematous Speculum Exam - Cervix: normal appearance of the cervix and normal palpation Bimanual exam- vagina & uterus: normal bimanual exam, normal palpation, uterine size normal, bladder normal to palpation, consistency normal and normal palpation Bimanual Exam- Adnexa, other: normal adnexae, no masses and no tenderness Assessment & Plan Assessment & Plan (1) Well woman exam: Code(s): Z01.419 - Encounter for gynecological examination (general) (routine) without abnormal findings Category: Medical Plan: Cotesting not indicated this year. Counseled the patient about the recommended dietary allowance of 1000 mg of Calcium & 600 IU of vitamin D. The patient was instructed to perform monthly self-breast exams and to schedule an annual exam in a year; All questions answered and the patient verbalized understanding. Instructed the patient to schedule annual exam in a year (2) Screen for STD (sexually transmitted disease): Code(s): Z11.3 - Encounter for screening for infections with a predominantly sexual mode of transmission Category: Medical Plan: STD screening tests done includes: BV panel for trichomonas, GC/CT will send patient for serology std screening for HIV, RPR, Hep b s Ag, HepC Ab. Instructions given the patient to schedule a follow-up appointment for repeat serology screen in 6 months for possible false negatives. Orders: Orders HIV Ab/Ag Today Z20.2 - Contact with and (suspected) exposure to infections with a predominantly sexual mode of transmission Hepatitis B Surface Antigen Today Z20.2 - Contact with and (suspected) exposure to infections with a predominantly sexual mode of transmission Syphilis Screen Today Z20.2 - Contact with and (suspected) exposure to infections with a predominantly sexual mode of transmission Hepatitis C Antibody Today Z20.2 - Contact with and (suspected) exposure to infections with a predominantly sexual mode of transmission Coding Level of Care Code Est Pt Prev Care 18-39y(53851) Diagnoses Well woman exam Z01.419 Screen for STD (sexually transmitted disease) Z11.3
[2024-09-27 13:36] VITALS: BP 132/80; BMI 28.2
== END 2024-09-27 13:47 | disposition home or self-care (01) ==
LOC: HO.HWS 13:06
PROVIDERS: PCP Nurse Practitioner Family; Visit Provider Obstetrics & Gynecology
DX: Z01.419 Encounter for gynecological examination (general) (routine) without abnormal findings (principal)
CPT/HCPCS: 99395; 99459

== ENCOUNTER 2024-09-27 13:06 | Outpatient (REF) | payer OTHER, SELFPAY ==
[2024-09-27 18:26] LABS: Bacterial Vaginosis PCR NEGATIVE (Negative); Candida Group PCR DETECTED (Not Detect); Candida glab krusei PCR NOT DETECTED (Not Detect); Trichomonas vaginalis PCR NOT DETECTED (Not Detect)
[2024-09-27 18:59] LABS: CT PCR NOT DETECTED (Not Detect.); NG PCR NOT DETECTED (Not Detect.)
== END 2024-09-27 13:07 | disposition home or self-care (01) ==
LOC: HO.LNP 13:06
PROVIDERS: PCP Nurse Practitioner Family; Visit Provider Obstetrics & Gynecology
DX: Z01.419 Encounter for gynecological examination (general) (routine) without abnormal findings (principal); Z20.2 Contact with and (suspected) exposure to infections with a predominantly sexual mode of transmission
CPT/HCPCS: 81515; 87491; 87591

== ENCOUNTER 2024-09-28 12:32 | Outpatient (REF) | payer OTHER, SELFPAY ==
[2024-09-29 08:34] LABS: Syphilis Screen Nonreactive (Nonreactive)
[2024-09-29 08:35] LABS: HBsAGNum1 0.27 S/CO (0.00-0.99); HIV AB/AG Nonreactive (Nonreactive); HIV Num 1 0.06 S/CO (0.00-0.99); Hepatitis B Surface Antigen Negative (Negative); ~Hepatitis C Antibody Nonreactive (Nonreactive)
== END 2024-09-28 12:33 | disposition home or self-care (01) ==
LOC: HO.LAB 12:32
PROVIDERS: PCP Nurse Practitioner Family; Visit Provider Obstetrics & Gynecology
DX: Z20.2 Contact with and (suspected) exposure to infections with a predominantly sexual mode of transmission (principal)
CPT/HCPCS: 36415; 86780; 86803; 87340; 87389

== ENCOUNTER 2024-11-04 13:11 | Outpatient (REF) | payer OTHER, SELFPAY ==
[2024-11-04 13:41] LABS: MANUAL DIFF FLAG NO
[2024-11-04 13:50] LABS: Basophils Percent Auto 0.5 % (0-2); Eosinophils Absolute Auto 0.1 X10*3/uL (0.0-0.4); Eosinophils Percent Auto 0.8 % (0-4); Hematocrit 36.5 % (37.0-47.0); Hemoglobin 12.1 g/dl (12.0-16.0); Imm Gran Abs Auto 0.02 X10*3/uL (0.00-0.03); Imm Gran Pct Auto 0.3 % (0.0-0.4); Lymphocytes Absolute Auto 2.5 X10*3/uL (1.2-4.9); Lymphocytes Percent Auto 40.1 % (20-40); Mean Corpuscular HGB Conc 33.2 g/dl (31.0-35.0); Mean Corpuscular Hemoglobin 30.9 pg (27.0-33.0); Mean Corpuscular Volume 93.1 fL (80.0-98.0); Mean Platelet Volume 9.7 fL (9.4-12.3); Monocytes Absolute Auto 0.5 X10*3/uL (0.1-1.2); Monocytes Percent Auto 7.3 % (2-11); Neutrophils Absolute Auto 3.1 x10*3/uL (2.0-8.3); Platelet Count 267 X10*3/uL (160-400); Red Blood Count 3.92 X10*6/uL (4.20-5.50); Red Cell Distribution Width 12.1 % (11.0-16.0); White Blood Count 6.2 X10*3/uL (4.8-10.8)
[2024-11-04 14:22] LABS: Alanine Aminotransferase 19 U/L (0-31); Albumin Level 4.4 g/dL (3.5-5.0); Alkaline Phosphatase 60 U/L (39-117); Anion Gap 13 (12-20); Aspartate Amino Transferase 23 U/L (5-31); Bilirubin Total 0.3 mg/dL (0.0-1.0); Blood Urea Nitrogen 16 mg/dL (9-16); C Reactive Protein < 0.04 mg/dL (< or = 0.50); Calcium 9.5 mg/dL (8.4-10.2); Carbon Dioxide 27 mmol/L (22-29); Chloride 106 mmol/L (96-108); Estimated Glomerular Filt Rate > 60; Glucose Random 82 mg/dL (60-115); Potassium 4.8 mmol/L (3.3-5.1); Sodium 141 mmol/L (135-145)
[2024-11-04 16:01] LABS: Creatinine Urine 196.33 mg/dL; Protein/Creatinine Ratio, Ur 0.04 (<0.2); Total Protein Urine Random 8 mg/dL (<12)
[2024-11-04 23:45] LABS: Erythrocyte Sedimentation Rate 14 MM/HR (0-20)
[2024-11-05 17:04] LABS: Complement C3 134 mg/dL (83-193)
[2024-11-05 20:49] LABS: Anti DNA DS Antibody <1 IU/mL
[2024-11-10 15:08] LABS: DNAds, Crithidia Antibody Negative (Negative)
== END 2024-11-04 13:12 | disposition home or self-care (01) ==
LOC: HO.LAB 13:11
PROVIDERS: PCP Nurse Practitioner Family; Visit Provider Student in an Organized Health Care Education/Training Program
DX: M32.9 Systemic lupus erythematosus, unspecified (principal)
CPT/HCPCS: 36415; 80053; 82570; 84156; 85025; 85652; 86140; 86160; 86225; 86255

== ENCOUNTER 2024-11-12 08:20 | Outpatient (AMB) | payer OTHER, SELFPAY ==
[2024-11-12 08:41] VITALS: BP 122/70; PULSE 89; O2SAT 99; BMI 26.4
--- NOTE | 2024-11-12 08:41 | A.OFFVIS_ITS ---
Vital Signs 11/12/24 08:41 Height 5 ft 7 in Weight 168 lb 6.931 oz BMI 26.4 BP 122/70 Blood Pressure Location Lt brachial Position Sitting Pulse 89 Pulse Source Pulse Oximeter Pulse Oximetry (%) 99 Oxygen Delivery Method Room Air Intake Visit Reasons: cutanous lupus Intake Note: Patient presents for follow up on cutaneous lupus. Allergies metronidazole (From Flagyl) Allergy (Severe, Verified 11/12/24 08:42) Vomiting HPI Comments Details: Patient is a 39-year-old female with depression with anxiety, OCD, ADHD, asthma, nonalcoholic fatty liver disease, and cutaneous discoid lupus here today for follow up Interval History: Patient last seen 01/28/[address] Rosenbaum. At that time she was following up for her cutaneous lupus. There was no evidence of systemic manifestations. She was complaining of some joint pain with morning stiffness lasting about 20 minutes but this was attributed to degenerative joint disease with no evidence of synovitis on examination. Today, Patient denies any change Does get ulcers on the the tip of her tongue and in her nose Has some discoid lesions on her scalp Still has joint Topical diclofenac helps the knees a little bit Rheumatologic History: borderline +SSa onset 2019 (Discoid lesions, intermittent malar rash) HCQ 2020 effective Initial history: This is a 38-year-old female who presents for evaluation of lupus. And states that she was diagnosed with discoid lupus back in 2019 when she was having lesions in her face and scalp. She was started on hydroxychloroquine with resolution of her discoid lesions. However since April of 2023 she has been having rashes. She had an episode of malar rash 08/2023. She also had a few episodes of rashes on her forearms and hands. Both episodes were treated with prednisone taper. She also states that she has been having some joint pain especially in her back, knees, pain is more severe in the morning, associated with stiffness lasting for 1 hour and more severe after getting up from sitting down for some time. She denies any swollen joints. She denies any blood or frothy urine. Denies any history of DVT/PE. Denies any oral ulcers. Denies any fevers or weight loss. She is unaware of any family hi story of an autoimmune rheumatic disease. She states that her fingers change color in the cold but not significant. Denies any history of digital ulcers. Current Rheumatology Medication(s): Hydroxychloroquine 200 mg twice a day (prescribed by Dermatology) [facility] Medical History Anxiety and depression Fatty liver Discoid lupus ADHD (attention deficit hyperactivity disorder) OCD (obsessive compulsive disorder) Asthma GERD (gastroesophageal reflux disease) H/O LEEP (loop electrosurgical excision procedure) of cervix complicating History of nephrolithiasis Surgical History History of carpal tunnel surgery H/O esophagogastroduodenoscopy H/O colonoscopy S/P skin biopsy Family History Sister Colon cancer Paternal Grandfather Colon cancer Mother Breast CA Paternal Aunt Breast CA Paternal Grandmother Breast CA Social History Household Members: Family Alcohol intake: never Comment: all counts correct Patient Tobacco Use Status: Former Tobacco user Second Hand Smoke Exposure: No 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 Review of Systems Const Details: Review of Systems Constitutional: Denies fever, chills, weight loss ENT: Denies vision changes, eye pain or eye redness, dental caries, dry mouth GI: Denies nausea, vomiting, diarrhea, abdominal pain, change in BM Pulm: Denies SOB, COREA, hemoptysis, wheezing Cards: Denies chest pain, palpitations Skin: Denies nail changes, photosensitivity, DIABETES CLINICAL MANAGER: Denies headaches, weakness, paresthesias, recurrent falls MSK: as per HPI All other systems reviewed and are unremarkable except noted above Physical Exam Vital Signs: BMI result Body Mass Index 26.4 Vital signs reviewed Physical Examination CONSTITUITIONAL Patient alert and cooperative. Well appearing and in no apparent painful distress HEENT Conjunctiva and sclera clear. No lymphadenopathy. small shallow ulcer seen on the tongue CHEST/RESPIRATORY SYSTEM Normal respiratory effort and able to speak in complete sentences. Clear to auscultation bilaterally. No crackles, rales, rhonchi, wheezes heard. CARDIAC SYSTEM Regular rate and rhythm. S1 and S2 heard no murmurs. Radial pulses intact bilaterally MSK Hands * Right Hand: Able to make a fist. No swelling or tenderness to palpation of these joints. No deformities noted. * Left Hand: Able to make a fist. No swelling or tenderness to palpation of these joints. No deformities noted. Wrists * Right Wrist: Full ROM. 70 degrees of wrist flexion, 80 degrees of wrist extension. No swelling or TTP * Left Wrist: Full ROM. 70 degrees of wrist flexion, 80 degrees of wrist extension. No swelling or TTP Elbows * Right Elbow: Full ROM. No swelling or TTP. No TTP of the medial and lateral epicondyles * Left Elbow: Full ROM. No swelling or TTP. No TTP of the medial and lateral epicondyles Shoulders * Right shoulder: Full ROM. No swelling noted. No TTP of the AC joint, subacromial bursa or posterior shoulder * Left shoulder: Full ROM. No swelling noted. No TTP of the AC joint, subacromial bursa or posterior shoulder Hips * Right hip: Good ROM. No pain elicited with hip flexion/internal rot ation/external rotation * Left hip: Good ROM. No pain elicited with hip flexion/internal rotation/external rotation Hip bursa: No tenderness to palpation bilaterally Knees * Right knee: Full ROM. No swelling noted. No TTP of the knee joint lie or pes anserine bursa * Left knee: Full ROM. No swelling noted. No TTP of the knee joint lie or pes anserine bursa. Ankles * Right ankle: Good ankle dorsiflexion and plantar flexion. No swelling. No TTP of the ankle joint * Left ankle: Good ankle dorsiflexion and plantar flexion. No swelling. No TTP of the ankle joint Feet * Right foot: Negative squeeze test * Left foot: Negative squeeze test Tender points? * No tenderness to palpation of the bilateral trapezius, supraspinatus, anterior costochondral junctions, bilateral suboccipital muscle insertions SKIN Subcentimeter discrete discoid noted to scalp Results Reviewed Results Reviewed: Laboratory Tests 11/04/24 13:38 WBC 6.2 RBC 3.92 L Hgb 12.1 Hct 36.5 L Plt Count 267 ESR 14 Sodium 141 Potassium 4.8 Chloride 106 Carbon Dioxide 27 BUN 16 Creatinine 0.84 Total Bilirubin 0.3 AST 23 ALT 19 Alkaline Phosphatase 60 C-Reactive Protein < 0.04 Rheumatology Labs 01/20/24 12:42 Cycl Citrul Peptide IgG <16 RENNY Screen NEGATIVE SS-A/Ro Antibody 1.0 POS A SS-B/La Antibody <1.0 NEG Sm (Garner) Antibody <1.0 NEG SM/ABATEMENT WORKER IgG Antibody <1.0 NEG Double Strand DNA Ab <1 Anti-ds DNA (Crithidia) Negative Beta-2-GPI IgG Ab <2.0 Beta-2-GPI IgA Ab 2.4 Beta-2-GPI IgM Ab <2.0 Anti-Cardiolipin IgG Ab <2.0 Anti-Cardiolipin IgM Ab 3.6 Urine Tests 11/04/24 14:50 Protein/Creatinin Ratio 0.04 Lupus labs 01/20/24 11/04/24 12:42 13:38 Double Strand DNA Ab <1 Complement C3 137 134 Complement C4 20 20 Assessment & Plan Assessment & Plan (1) Acute cutaneous lupus erythematosus: Comment: borderline +SSa onset 2019 (Discoid lesions, intermittent malar rash) HCQ 2019 effective Code(s): L93.1 - Subacute cutaneous lupus erythematosus Category: Medical Plan: #Subacute cutaneous lupus Patient is a 39 y.o. female with SCLE here today for follow up. Doing well. No evidence of systemic manifestations of lupus. She does have an ulcer on the tip of her tongue which is concerning but given the normal complement and dsDNA we will continue to monitor on plaquenil monotherapy Plan - HCQ 200mg (from derm) - RTC 6 months - Labs before visit: CBC, CMP, ESR, CRP, C3, C4, dsDNA, UA (2) Long-term use of Plaquenil: Code(s): Z79.899 - Other long-term (current) drug therapy Category: Medical Plan: #Long-term Use of Hydroxychloroquine Discussed with patient the risks and benefits of hydroxychloroquine in managing the rheumatic condition Benefits include: - Reduced pain, reduce mortality, maintenance of remission and reduction of flares Risks include: - GI upset, skin hyperpigmentation, retinal toxicity (especially after more than 5 years of use), myopathy Advised yearly ophthalmology visits Plan I spent 30 minutes reviewing the record and labs, taking a history, examining the patient, discussing the treatment plan, ordering diagnostic work up and documenting in the medical record Coding Level of Care Code Est Pt Level 4 (30119) Complex EM visit Add On G2211 Diagnoses Acute cutaneous lupus erythematosus L93.1 Long-term use of Plaquenil Z79.899
== END 2024-11-12 09:01 | disposition home or self-care (01) ==
LOC: HO.RHE 08:20
PROVIDERS: PCP Nurse Practitioner Family; Visit Provider Student in an Organized Health Care Education/Training Program
DX: L93.1 Subacute cutaneous lupus erythematosus (principal); Z79.899 Other long term (current) drug therapy
CPT/HCPCS: 99214

== ENCOUNTER → 2025-01-14 15:55 | Outpatient (BNV) | payer OTHER, SELFPAY | PROVIDERS: PCP Nurse Practitioner Family; Visit Provider Internal Medicine | DX: Z15.01 Genetic susceptibility to malignant neoplasm of breast (principal) | CPT/HCPCS: 77049 ==

== ENCOUNTER 2025-01-14 15:56 | Outpatient (REF) | payer OTHER, SELFPAY | END 2025-01-14 15:57 | disposition home or self-care (01) | LOC: HO.MRI 15:56 | PROVIDERS: PCP Nurse Practitioner Family; Visit Provider Surgery | DX: Z15.01 Genetic susceptibility to malignant neoplasm of breast (principal); Z15.02 Genetic susceptibility to malignant neoplasm of ovary; Z15.09 Genetic susceptibility to other malignant neoplasm | CPT/HCPCS: 77049; A9585 ==

== ENCOUNTER 2025-01-24 08:52 | Outpatient (AMB) | payer OTHER, SELFPAY ==
--- NOTE | 2025-01-24 09:05 | A.OFFVIS_ITS ---
Vital Signs 01/24/25 09:12 Height 5 ft 7 in Weight 161 lb BMI 25.2 BP 110/66 Blood Pressure Location Rt brachial Position Sitting Pulse 104 H Intake Visit Reasons: BRCA 2+ screening Intake Note: Patient of Dr Harrington is seen in office for 6 month follow up visit, breast exam. Pt c/o: no concerns. Denies breast pain, itch, nipple discharge. Reports no changes in medical hx since last oofice visit. 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 She is a previous patient of Dr. Harrington found to have genetic testing positive for BRCA2 mutation. Her family history is significant for her mother, paternal grandmother, paternal aunt all with breast cancer. Her sister was diagnosed with colon cancer. Her menarche was at 14, she is , in her 1st child was born when she was 20. 21-year-old child has not undergone genetic testing. She denies any previous breast or ovarian problems. Her most recent breast MRI performed on 01/14/2025 revealed no MR specific evidence of malignancy in either breast (BI-RADS 1). Mammogram dated 06/10/2024 revealed a focal asymmetry in the upper outer right breast posterior depth without a sonographic correlate which had not changed significantly since March 2023. Follow-up diagnostic mammogram in 1 year was recommended to assure stability. She denies any new breast symptoms in either breast. [facility] Medical History Anxiety and depression Fatty liver Discoid lupus ADHD (attention deficit hyperactivity disorder) OCD (obsessive compulsive disorder) Asthma GERD (gastroesophageal reflux disease) H/O LEEP (loop electrosurgical excision procedure) of cervix complicating History of nephrolithiasis Surgical History History of carpal tunnel surgery H/O esophagogastroduodenoscopy H/O colonoscopy S/P skin biopsy Family History Sister Colon cancer Paternal Grandfather Colon cancer Mother Breast CA Paternal Aunt Breast CA Paternal Grandmother Breast CA Social History Household Members: Family Alcohol intake: never Comment: all counts correct Patient Tobacco Use Status: Former Tobacco user Second Hand Smoke Exposure: No 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 Review of Systems Const All systems reviewed & are unremarkable except as noted in HPI and below Physical Exam Vital Signs: Last Vital Signs Pulse 104 H 01/24/25 09:12 BP 110/66 01/24/25 09:12 BMI result Body Mass Index 25.2 Const General: cooperative and no acute distress Nutritional Appearance: well nourished Orientation/consciousness: patient oriented x3 Limitations: no limitations HEENT Head: Yes normocephalic and Yes atraumatic Ears: hearing grossly normal bilaterally Chest Other: Left breast: No skin change, no nipple retraction, no nipple discharge, no palpable mass, no enlarged lymph nodes. Right breast: No skin change, no nipple retraction, no nipple discharge, no palpable mass, no enlarged lymph nodes Resp Effort & Inspection: normal respiratory effort, no audible wheezes, no cough and no respiratory distress Cardio Jugular venous distension: no JVD GI Inspection: Yes normal to inspection Skin Other: Warm, dry, no rash Neuro General: patient oriented x3 Extrem General: Yes no clubbing, cyanosis or edema Assessment & Plan Assessment & Plan (1) BRCA2 gene mutation positive in female: Code(s): Z15.01 - Genetic susceptibility to malignant neoplasm of breast; Z15.02 - Genetic susceptibility to malignant neoplasm of ovary; Z15.09 - Genetic susceptibility to other malignant neoplasm Category: Surgical (2) At high risk for breast cancer: Code(s): Z91.89 - Other specified personal risk factors, not elsewhere classified Category: Medical (3) Family history of breast cancer: Code(s): Z80.3 - Family history of malignant neoplasm of breast Category: Medical Plan 39-year-old female patient determined to be BRCA 2 positive for mutation placing her at high risk for breast, ovarian, melanoma. She was placed on a high risk protocol including yearly mammogram alternating every 6 months with breast MRI. Her most recent breast MRI of 01/14/2025 revealed no suspicious findings in either breast (BI-RADS 1). Her most recent mammogram of 06/10/2024 revealed a low suspicion area in the right breast at the upper outer quadrant posterior depth which has been stable in his not seen on ultrasound (BI-RADS 3). Diagnostic mammogram in 12 months was recommended and is scheduled for 06/14/2025. Examination today revealed no suspicious findings in either breast. I recommended a follow-up examination in 6 months. We discussed genetic c adrian for family members including her daughter. She expressed understanding and agrees with the plan. Coding Level of Care Code New Pt Level 4 (03617) Diagnoses BRCA2 gene mutation positive in female Z15.01; Z15.02; Z15.09 At high risk for breast cancer Z91.89 Family history of breast cancer Z80.3
[2025-01-24 09:12] VITALS: BP 110/66; PULSE 104; BMI 25.2
== END 2025-01-24 09:25 | disposition home or self-care (01) ==
LOC: HO.HGS 08:53
PROVIDERS: PCP Nurse Practitioner Family; Visit Provider Surgery
DX: Z15.01 Genetic susceptibility to malignant neoplasm of breast (principal); Z15.02 Genetic susceptibility to malignant neoplasm of ovary; Z15.09 Genetic susceptibility to other malignant neoplasm; Z91.89 Other specified personal risk factors, not elsewhere classified; Z80.3 Family history of malignant neoplasm of breast
CPT/HCPCS: 99204

== ENCOUNTER 2025-02-23 08:09 | Outpatient (REF) | payer OTHER, SELFPAY ==
[2025-02-23 08:21] LABS: MANUAL DIFF FLAG NO
[2025-02-23 08:33] LABS: Hematocrit 36.6 % (37.0-47.0); Hemoglobin 12.5 g/dl (12.0-16.0); Imm Gran Abs Auto 0.02 X10*3/uL (0.00-0.03); Imm Gran Pct Auto 0.3 % (0.0-0.4); Lymphocytes Absolute Auto 2.2 X10*3/uL (1.2-4.9); Mean Corpuscular HGB Conc 34.2 g/dl (31.0-35.0); Mean Corpuscular Hemoglobin 31.5 pg (27.0-33.0); Mean Corpuscular Volume 92.2 fL (80.0-98.0); NRBC Abs Auto 0.000 X10*3/uL (0.0-0.012); NRBC Pct Auto 0.0 /100WBC (0.0-0.2); Platelet Count 246 X10*3/uL (160-400); Red Blood Count 3.97 X10*6/uL (4.20-5.50); White Blood Count 6.3 X10*3/uL (4.8-10.8)
[2025-02-23 09:16] LABS: Alanine Aminotransferase 19 U/L (0-31); Albumin Level 4.6 g/dL (3.5-5.0); Alkaline Phosphatase 65 U/L (39-117); Anion Gap 10 (12-20); Aspartate Amino Transferase 20 U/L (5-31); Blood Urea Nitrogen 18 mg/dL (9-16); Calcium 9.0 mg/dL (8.4-10.2); Carbon Dioxide 24 mmol/L (22-29); Chloride 110 mmol/L (96-108); Estimated Glomerular Filt Rate > 60; Potassium 4.6 mmol/L (3.3-5.1); Sodium 139 mmol/L (135-145); Total Protein 7.2 g/dL (6.5-8.0)
[2025-02-23 09:38] LABS: Thyroid Stimulating Hormone 0.77 uIU/mL (0.32-4.0)
== END 2025-02-23 08:10 | disposition home or self-care (01) ==
LOC: HO.LAB 08:09
PROVIDERS: PCP Nurse Practitioner Family; Visit Provider Nurse Practitioner Family
DX: Z00.00 Encounter for general adult medical examination without abnormal findings (principal); L93.0 Discoid lupus erythematosus; Z13.220 Encounter for screening for lipoid disorders; Z79.899 Other long term (current) drug therapy
CPT/HCPCS: 36415; 80053; 83721; 84443; 85025